=== PATIENT | male | born 1930 | race Caucasian/White ===

== ENCOUNTER 2016-10-25 18:52 | Emergency (ER) | payer MEDICARE ==
[2016-10-25] MEDS ORDERED: traMADol TAB* 50 MG PO ONE (20:51)
[2016-10-25] MEDS ORDERED: Tetan/Diph/Pertus SYR(Tdap)* 0.5 ML SYR(BOOSTRIX) use SYR IM ONE (20:53)
[2016-10-25 21:09] VITALS: BP 135/71
--- NOTE | 2016-10-25 21:22 | RAD ---
INDICATION: Fourth and fifth metacarpal injury COMPARISON: None TECHNIQUE: AP and lateral views were obtained. FINDINGS: There is osteopenia. There is interphalangeal and metacarpophalangeal joint space narrowing. There is no acute fracture. There is soft tissue swelling over the dorsum of the hand. IMPRESSION: SOFT TISSUE SWELLING. NO ACUTE FRACTURE.
--- NOTE | 2016-10-25 21:32 | RAD ---
INDICATION: Intracranial injury COMPARISON: MRI brain February 28, 2011 TECHNIQUE: Noncontrast axial source images were acquired from the skull base to the vertex. FINDINGS: Ventricles/sulci: There is cortical atrophy with compensatory dilatation of the CSF spaces. Brain parenchyma: There is periventricular and subcortical white matter change compatible with chronic ischemia. Intracranial hemorrhage:None. Extra-axial spaces: There are no abnormal extra axial fluid collections or evidence of extra-axial mass. Calvarium: There is no calvarial fracture or other calvarial abnormality. Scalp: There is no evidence of scalp or extracalvarial soft tissue abnormality. Paranasal sinuses/mastoid: The paranasal sinuses and mastoid air cells are clear. Other: None. IMPRESSION: CORTICAL ATROPHY WITH CHRONIC MICROVASCULAR ISCHEMIC CHANGES. NO ACUTE FINDINGS.
--- NOTE | 2016-10-25 21:38 | RAD ---
INDICATION: Fall. Right facial injury. COMPARISON: None TECHNIQUE: Axial source images were acquired from the vertex of the mandible through the orbits. Coronal and sagittal reconstructed images were acquired. FINDINGS: Bones: There is no acute facial bone fracture. Orbits: The globes and intraconal structures appear intact. The optic nerves are symmetric. Extraocular muscles appear normal. There is no intraconal inflammatory change or retrobulbar mass.. Paranasal sinuses: The paranasal sinuses are clear. Brain: There are no acute abnormalities of the visualized brain parenchyma. Soft tissues: There are superficial right-sided facial abrasions Other: None The visualized soft tissue elements about the neck appear normal. IMPRESSION: NO FACIAL BONE FRACTURE.
--- NOTE | 2016-11-08 15:42 | ED ---
Juani Rashid Kyle, scribed for Ariel Judd MD on 10/25/16 at 2055 . Complex/Multi-Sys Presentation - HPI Summary HPI Summary: This is an 86 yo male presenting to the ED s/p fall that occurred earlier today. He reports they were walking [place] the [place] trail and on the way down the hill, he kept speeding up, and ended up falling down when he attempted to turn around. He reports that when he fell, he did hit head and tried to catch himself with the right hand. He was unable to get up after the fall without assistance, but was able to walk without assistance. He is currently on Pradaxa. He is unsure if his tetanus is UTD. - History Of Current Complaint Chief Complaint: EDGeneral Time Seen by Provider: 10/25/16 20:43 Hx Obtained From: Patient, Family/Candle Cutter - Onset/Duration: Sudden Onset Timing: Constant Severity Currently: Moderate Severity Initially: Moderate Character: Sharp, Throbbing Aggravating Factor(s): Pressure to the injury Alleviating Factor(s): None Related History: Other - Recent trauma - Allergies/Home Medications Allergies/Adverse Reactions: Allergies Allergy/AdvReac Type Severity Reaction Status Date / Time Donepezil [From Aricept] Allergy Dizziness Verified 10/25/16 19:26 PMH/Surg Hx/FS Hx/Imm Hx Cardiovascular History: Reports: Hx Atrial Fibrillation Respiratory History: Reports: Hx Sleep Apnea - Cancer History Cancer Type, Location and Year: PROSTATE [place] Infectious Disease History: Denies: Traveled Outside the [place] in Last 30 Days - Family History Known Family History: Positive: Other - Colon surgery - Social History Occupation: Retired - Professional Musician/Teacher Lives: With Family Alcohol Use: None Substance Use Type: Reports: None Smoking Status (MU): Never Smoked Tobacco Review of Systems Negative: Fever, Chills Negative: Erythema Positive: Other - Head Injury. Negative: Sore Throat Negative: Palpitations, Chest Pain Negative: Shortness Of Breath, Cough Negative: Abdominal Pain, Vomiting, Nausea Negative: dysuria, hematuria Musculoskeletal: Other - Right hand pain Negative: Myalgia, Edema Negative: Rash Neurological: Other - NEGATIVE: dizziness Negative: Headache, Numbness All Other Systems Reviewed And Are Negative: Yes Physical Exam - Summary Physical Exam Summary: Constitutional: Well-developed, Well-nourished, Alert. (-) Distressed Skin: Warm, Dry HENT: Normocephalic; Right infraorbital abrasion, 2 cm x 2cm with other abrasions surrounding. There is some ecchymosis over the right eyelid. Tenderness to the right infraorbital region. Neck: Musculoskeletal ROM normal neck. (-) JVD, (-) Stridor, (-) Tracheal deviation Cardio: Rhythm regular, rate normal, Heart sounds normal; Intact distal pulses; The pedal pulses are 2+ and symmetric. Radial pulses are 2+ and symmetric. (-) Murmur Pulmonary/Chest wall: Effort normal. (-) Respiratory distress, (-) Wheezes, (-) Rales Abd: Soft, (-) Tenderness, (-) Distension, (-) Guarding, (-) Rebound Musculoskeletal: (-) Edema. Tender with ecchymosis over the 4th and 5th metacarpals on the right hand. Lymph: (-) Cervical adenopathy Neuro: Alert, Oriented x3 Psych: Mood and affect Normal Triage Information Reviewed: Yes Vital Signs On Initial Exam: Initial Vitals Temp Pulse Resp BP Pulse Ox 98.2 F 60 16 116/67 93 10/25/16 19:20 10/25/16 19:20 10/25/16 19:20 10/25/16 19:20 10/25/16 19:20 Vital Signs Reviewed: Yes Diagnostics - Vital Signs Vital Signs Temp Pulse Resp BP Pulse Ox 10/25/16 19:20 98.2 F 60 16 116/67 93 - Laboratory Lab Statement: Any lab studies that have been ordered have been reviewed, and results considered in the medical decision making process. - Radiology XR R Hand Xray Interpretation: Positive (See Comments) - Soft tissue swelling. No acute fracture. Radiology Interpretation Completed By: Radiologist - CT Brain CT Interpretation: No Acute Changes - Cortical Atrophy with chronic microvascular ischemic changes. No acute findings CT Interpretation Completed By: Radiologist Maxillofacial CT Interpretation: No Acute Changes CT Interpretation Completed By: Radiologist - No facial bone fracture Re-Evaluation - Re-Evaluation First Eval Re-Evaluation Time: 21:46 Change: Improved - Patient has FROM of his fingers on re-evaluation. Complex Multi-Symp Course/Dx Assessment/Plan: Patient presenting status post mechanical fall without prodrome. He has negative radiographic studies in the ED including CT Head, CT Facial bones and R hand XR. No neurologic symptoms. Hand with FROM on reexamination. Stable for discharge with outpatient follow. - Diagnoses Differential Diagnoses/HQI/PQRI: Other - Mechanical fall, abrasions, strains, contusion, facial bone fracture, finger fracture, Provider Diagnoses: Contusion of right hand, initial encounter, Fall, Facial hematoma, Multiple abrasions Discharge - Discharge Plan Condition: Stable Disposition: HOME Patient Education Materials: Abrasion (ED), Fall Prevention (ED), Contusion in Adults (ED) Referrals: Damon Mooney MD [Primary Care Provider] - The documentation as recorded by the Juani fuentes Kyle accurately reflects the service I personally performed and the decisions made by , Ariel Judd MD.
== END 2016-10-25 22:13 | disposition home or self-care (01) ==
LOC: ED 18:52
DX: S09.90XA Unspecified injury of head, initial encounter (principal); T14.8 Other injury of unspecified body region; W19.XXXA Unspecified fall, initial encounter; Y93.9 Activity, unspecified; Y92.9 Unspecified place or not applicable; S60.221A Contusion of right hand, initial encounter
CPT/HCPCS: 70450; 70486; 90471; 90715; 99282; A9270-GY

== ENCOUNTER 2018-01-15 12:45 | Day surgery (SDC) | payer MEDICARE ==
[2018-01-15] MEDS ORDERED: Bupivacaine 0.25% SDV PF* 10 ML VIAL INJ ONE (13:58)
[2018-01-15 15:27] VITALS: BP 123/76
--- NOTE | 2018-01-16 03:06 | OP ---
DATE OF OPERATION: 01/15/18 [facility] DATE OF : 30. SURGEON: Russell Olmedo M.D. CLOUD CONSULTANT: None. ANESTHESIOLOGIST: None. ANESTHESIA: Local only with digital block via 0.25% Marcaine. PRE-OP DIAGNOSIS: Right thumbnail onychomycosis. POST-OP DIAGNOSIS: Right thumbnail onychomycosis. OPERATIVE PROCEDURE: Right thumbnail plate removal. INDICATIONS: Nasim has significant onychomycosis and significant discomfort. The nail plate is red, green, and cracking, and portions of the nail plate are falling off. We had talked about treatment options. We decided to remove the nail plate in the operating room. He understood and wished to proceed. ESTIMATED BLOOD LOSS: 1 mL. COMPLICATIONS: None. FINDINGS: See above and below. DESCRIPTION OF PROCEDURE: Nasim was seen in the preoperative area. The correct site, side and procedure were identified. We had a time-out and I performed a digital block with 0.25% Marcaine. We then came back to the operating room. The arm was prepped and draped with a Betadine prep and then a time-out was performed. I used a curved iris scissors to remove the nail plate in its entirety. This was sent off to the lab for evaluation. I took a small curette and curetted it off any friable soft tissue off the nail bed. Everything that remained was as healthy as possible. I soaked the thumb in Betadine for just a few minutes. We then cleaned everything off. I placed a piece of Adaptic just on top of the nail bed. The finger tourniquet that had been placed was released. Dressings were applied, he was taken to the recovery room in stable condition. [id number]/[facility] #: [id number] [facility]
== END 2018-01-15 15:49 | disposition home or self-care (01) ==
LOC: OREAST 12:45
PROVIDERS: ATTEND Orthopaedic Surgery Hand Surgery
DX: B35.1 Tinea unguium (principal); B37.2 Candidiasis of skin and nail; L60.3 Nail dystrophy; I48.91 Unspecified atrial fibrillation; Z79.01 Long term (current) use of anticoagulants; M10.9 Gout, unspecified; I34.0 Nonrheumatic mitral (valve) insufficiency
CPT/HCPCS: 87101; 88304; 88312; J3490

== ENCOUNTER 2019-03-29 13:05 | Emergency (ER) | payer MEDICARE ==
--- OUTSIDE RECORDS SUMMARY | 2019-03-29 13:18 | XMS REPORT | Continuity of Care Document ---
:1930 External Reference #:[id number] Author Name Emile Lemos M.D. (transmitted by agent of provider Chloe Garcia ) Address [address] [facility], [place] [address] Care Team Providers Name Role Phone Roosevelt Acevedo MD - Urology Care Team Information Pediatric Associate [phone] Kris Villagran MD - Care Team Information Pediatric Associate [phone] Otolaryngology Mana Carcamo M.D. - Family Medicine Care Team Information Pediatric Associate Problems Active Problems Provider Date Malignant tumor of prostate Damon Mooney M.D.,FACP Onset: 04/22/2011 Paroxysmal atrial fibrillation Damon Mooney M.D.,FACP Onset: 06/13/2016 Mitral valve regurgitation Damon Mooney M.D.,FACP Onset: 12/01/2015 Note: severe Mild cognitive disorder Damon Mooney M.D.,FACP Onset: 08/16/2013 Impaired fasting glycaemia Damon Mooney M.D.,FACP Onset: 03/23/2007 Benign prostatic hypertrophy with Damon Mooney M.D.,FACP Onset: 2007 outflow obstruction [place] Mooney M.D.,FACP Onset: 11/01/2010 Obstructive sleep apnea syndrome Damon Mooney M.D.,FACP Onset: 2010 Mild major depression, single episode Damon Mooney M.D.,FACP Onset: Gout Damon Mooney M.D.,FACP Onset: 02/23/2015 Dystrophia unguium Russell Olmedo MD Onset: 01/06/2018 Social History Type Date Description Comments Sex Unknown Tobacco Use Start: Unknown Never Smoked Cigarettes ETOH Use 06/19/2017 Denies alcohol use Recreational Drug Use Denies Drug Use Tobacco Use Start: Unknown Patient has never smoked Smoking Status Reviewed: 02/22/19 Patient has never smoked Exercise Type/Frequency Walks 5 times a week third to half mile/strength exercises before getting oob Allergies, Adverse Reactions, Alerts Active Allergies Reaction Severity Comments Date Aricept dizzy Moderate dizzy 10/17/2009 Inactive Allergies NKDA 03/23/2007 Medications Active Medications SIG Qnty Indications Ordering Provider Date Carbidopa-Levodopa 1 by mouth every 90tabs R29.6 Emile Lemos, 2019 am after meals M.D. 25-100mg Tablets for 1 week then 1 twice a day after meals for 1 week then 1 three times a day after meals Eliquis 1 tablet by 180tabs I48.0 Davion Mosqueda, 11/20/2017 2.5mg Tablets mouth twice a DO FACC day. Allopurinol Take 2 Tablets 180tabs M10.9 Coretta Hinson MD 02/23/2015 100mg By Mouth Every Tablets Day Sertraline HCL [id number] by 90tabs Mana Carcamo MD 04/30/2012 50mg mouth Tablets Acidophilus 1 po qd Unknown Tablets Finasteride 1 po qd 30tabs Unknown 5mg Tablets Vitamin D 1 by mouth every Unknown 1000Unit day Capsules Bicalutamide 1 by mouth every Unknown 50mg day Tablets Immunizations CPT Code Status Date Vaccine Lot # 84337 Given 11/20/2018 Influenza Virus Vaccine, Quadrivalent, Split, Im Use 6-35mo 88674 Given 11/25/2017 Fluzone High Dose 60643 Given 11/14/2017 Zoster (Shingles) Vaccine (HZV), Recombinant, Subunit, Adjuvanted 47242 Given 06/19/2017 Zoster (Shingles) Vaccine (HZV), Recombinant, Subunit, Adjuvanted 67134 Given 11/28/2016 Influenza Virus 3Yrs & Over 59574 Given 11/20/2015 Influ Virus Vaccine, Quadrivalent, Split Virus, [place] [address] Given 02/23/2015 Tetanus And Diptheria (Td) For Adult Use [id number] Preservative Free 82746 Given 02/23/2015 Pneumococcal Conjugate Vaccine 13 Valent For [id number] Intramuscular Use 15117 Given 12/01/2014 Fluzone High Dose 98390 Given 01/08/2013 Flu Vaccine Split Virus Preservative Free For Indiv 3Yr Older 80200 Given 12/21/2012 Fluzone High Dose 40082 Given 11/20/2011 Influenza Virus 3Yrs & Over [id number] Given 11/01/2010 Fluzone Vaccine [id number] 81519 Given 11/19/2009 Influenza Virus 3Yrs & Over 33148 Given 12/05/2008 Influenza Virus 3Yrs & Over [id number] 58967 Given 12/10/2007 Influenza Virus 3Yrs & Over [id number] 18203 Given 12/19/2006 Influenza Virus 3Yrs & Over 28222 Given 12/19/2006 Influenza Virus 3Yrs & Over 35933 Given 12/19/2006 Influenza Virus 3Yrs & Over [id number] 55805 Given 12/17/2005 Pneumonia Vaccine [id number] Vital Signs Date Vital Result Comment 02/22/2019 2:00pm Height 68.50 inches 5'8.50" Weight 204.00 lb Heart Rate 72 /min BP Systolic Sitting 106 mmHg BP Diastolic Sitting 60 mmHg Respiratory Rate 18 /min BMI (Body Mass Index) 30.6 kg/m2 02/08/2019 9:29am Height 68.50 inches 5'8.50" Weight 207.00 lb Heart Rate 56 /min BP Systolic 108 mmHg BP Diastolic 66 mmHg BMI (Body Mass Index) 31.0 kg/m2 Results Test Acquired Date Facility Test Result H/L Range Note CBC Auto 02/19/2019 [facility] White Blood 5.4 10^3/uL Normal 3.5-10.[address] [place] [address] [phone] Red Blood Count 3.94 10^6/uL Low 4.18-5.48 Hemoglobin 11.0 g/dL Low 14.0-18.0 Hematocrit 34 % Low 42-52 Mean Corpuscular Volume 85 fL Normal 80-94 Mean Corpuscular Hemoglobin 28 pg Normal 27-31 Mean Corpuscular HGB Conc 33 g/dL Normal 31-36 Red Cell Distribution Width 14 % Normal 10-15 Platelet Count 203 10^3/uL Normal 150-450 Mean Platelet Volume 7.9 fL Normal 7.4-10.4 Abs Neutrophils 4.2 10^3/uL Normal 1.5-7.7 Abs Lymphocytes 0.6 10^3/uL Low 1.0-4.8 Abs Monocytes 0.5 10^3/uL Normal 0-0.8 Abs Eosinophils 0.2 10^3/uL Normal 0-0.6 Abs Basophils 0.0 10^3/uL Normal 0-0.2 Abs Nucleated RBC 0.0 10^3/uL Granulocyte % 77.0 % Lymphocyte % 10.5 % Monocyte % 8.5 % Eosinophil % 3.6 % Basophil % 0.4 % Nucleated Red Blood Cells % 0.0 Comp Metabolic 02/19/2019 [facility] Sodium 139 mmol/L Normal 135-[address] [place], [place] [id number] [phone] Potassium 4.2 mmol/L Normal 3.5-5.0 Chloride 104 mmol/L Normal 101-111 Co2 Carbon Dioxide 29 mmol/L Normal 22-32 Anion Gap 6 mmol/L Normal 2-11 Glucose 95 mg/dL Normal 70-100 Blood Urea Nitrogen 28 mg/dL High 6-24 Creatinine 0.88 mg/dL Normal 0.67-1.17 BUN/Creatinine Ratio 31.8 High 8-20 Calcium 8.8 mg/dL Normal 8.6-10.3 Total Protein 6.2 g/dL Low 6.4-8.9 Albumin 3.7 g/dL Normal 3.2-5.2 Globulin 2.5 g/dL Normal 2-4 Albumin/Globulin Ratio 1.5 Normal 1-3 Total Bilirubin 0.30 mg/dL Normal 0.2-1.0 Alkaline Phosphatase 182 U/L High 34-104 Alt 17 U/L Normal 7-52 Ast 20 U/L Normal 13-39 Egfr Non- 81.5 >60 Egfr 98.7 >60 1 Laboratory test 02/19/2019 [facility] Magnesium 2.2 mg/dL Normal 1.9-2.[address] [place] [address] [phone] Troponin-I (TnI) 0.02 ng/mL <0.03 2 Urinalysis Profile 02/05/2019 [facility] Urine Color Yellow [address] [place] [address] [phone] Urine Appearance Clear Urine Specific [place] 1.014 Normal 1.010-1.030 Urine pH 5.0 Normal 5-9 Urine Urobilinogen Negative Negative Urine Ketones Negative Negative Urine Protein Negative Negative Urine Leukocytes Negative Negative Urine Blood 1+ Abnormal Negative * * Abnormal Negative 3 Urine Nitrite Negative Negative Urine Bilirubin Negative Negative Urine Glucose Negative Negative Urine White Blood Cell Trace(0-5/hpf) Absent Urine Red Blood Cell 3+(>10/hpf) Abnormal Absent Urine Bacteria Absent Absent Urine Microalbumin 02/05/2019 [facility] Ur Microalbumin 48.9 mg /L Random [address] (mg/L) [place] [address] [phone] Urine Creatinine 56.64 mg/dL Urine Microalbumin/Creatinine 86.3 High <31 Urine Culture And 02/05/2019 [facility] Urine SEE RESULT [address] [place] [place] [address] [phone] Comp Metabolic 01/29/2019 [facility] Sodium 136 mmol/L Normal 135-[address] [place] [address] [phone] Potassium 4.6 mmol/L Normal 3.5-5.0 Chloride 100 mmol/L Low 101-111 Co2 Carbon Dioxide 32 mmol/L Normal 22-32 Anion Gap 4 mmol/L Normal 2-11 Glucose 94 mg/dL Normal 70-100 Blood Urea Nitrogen 25 mg/dL High 6-24 Creatinine 0.92 mg/dL Normal 0.67-1.17 BUN/Creatinine Ratio 27.2 High 8-20 Calcium 9.0 mg/dL Normal 8.6-10.3 Total Protein 6.2 g/dL Low 6.4-8.9 Albumin 3.8 g/dL Normal 3.2-5.2 Globulin 2.4 g/dL Normal 2-4 Albumin/Globulin Ratio 1.6 Normal 1-3 Total Bilirubin 0.50 mg/dL Normal 0.2-1.0 Alkaline Phosphatase 113 U/L High 34-104 Alt 23 U/L Normal 7-52 Ast 24 U/L Normal 13-39 Egfr Non- 77.5 >60 Egfr 93.7 >60 5 Laboratory 01/29/2019 [facility] TSH (Thyroid 2.03 Normal 0.34 -5.60 test finding [address] Stim Horm) mcIU/[place] [address] [phone] Vitamin B12 344 pg/mL Normal 180-914 6 Laboratory test 01/05/2019 [facility] PSA Diagnostic 48.351 High 0-4.000 [address] ng/[place] [address] [phone] Comp Metabolic 01/05/2019 [facility] Sodium 138 mmol/L Normal 135-[address] [place] [address] [phone] Potassium 4.4 mmol/L Normal 3.5-5.0 Chloride 100 mmol/L Low 101-111 Co2 Carbon Dioxide 31 mmol/L Normal 22-32 Anion Gap 7 mmol/L Normal 2-11 Glucose 98 mg/dL Normal 70-100 Blood Urea Nitrogen 26 mg/dL High 6-24 Creatinine 0.90 mg/dL Normal 0.67-1.17 BUN/Creatinine Ratio 28.9 High 8-20 Calcium 9.3 mg/dL Normal 8.6-10.3 Total Protein 6.9 g/dL Normal 6.4-8.9 Albumin 3.9 g/dL Normal 3.2-5.2 Globulin 3.0 g/dL Normal 2-4 Albumin/Globulin Ratio 1.3 Normal 1-3 Total Bilirubin 0.30 mg/dL Normal 0.2-1.0 Alkaline Phosphatase 99 U/L Normal 34-104 Alt 20 U/L Normal 7-52 Ast 22 U/L Normal 13-39 Egfr Non- 79.6 >60 Egfr 96.4 >60 8 CBC Auto 01/05/2019 [facility] White Blood 7.0 10^3/uL Normal 3.5-10.[address] [place] [address] [phone] Red Blood Count 4.35 10^6/uL Normal 4.18-5.48 Hemoglobin 12.7 g/dL Low 14.0-18.0 Hematocrit 38 % Low 42-52 Mean Corpuscular Volume 88 fL Normal 80-94 Mean Corpuscular Hemoglobin 29 pg Normal 27-31 Mean Corpuscular HGB Conc 33 g/dL Normal 31-36 Red Cell Distribution Width 14 % Normal 10-15 Platelet Count 246 10^3/uL Normal 150-450 Mean Platelet Volume 8.0 fL Normal 7.4-10.4 Abs Neutrophils 5.4 10^3/uL Normal 1.5-7.7 Abs Lymphocytes 0.7 10^3/uL Low 1.0-4.8 Abs Monocytes 0.5 10^3/uL Normal 0-0.8 Abs Eosinophils 0.3 10^3/uL Normal 0-0.6 Abs Basophils 0.0 10^3/uL Normal 0-0.2 Abs Nucleated RBC 0.0 10^3/uL Granulocyte % 77.4 % Lymphocyte % 10.5 % Monocyte % 7.0 % Eosinophil % 4.7 % Basophil % 0.4 % Nucleated Red Blood Cells % 0.0 Basic Metabolic 12/04/2018 [facility] Sodium 138 mmol/L Normal 135-[address] [place] [address] [phone] Potassium 4.4 mmol/L Normal 3.5-5.0 Chloride 100 mmol/L Low 101-111 Co2 Carbon Dioxide 32 mmol/L Normal 22-32 Anion Gap 6 mmol/L Normal 2-11 Glucose 81 mg/dL Normal 70-100 Blood Urea Nitrogen 24 mg/dL Normal 6-24 Creatinine 0.92 mg/dL Normal 0.67-1.17 BUN/Creatinine Ratio 26.1 High 8-20 Calcium 9.2 mg/dL Normal 8.6-10.3 Egfr Non- 77.6 >60 Egfr 93.9 >60 9 CBC Auto 12/04/2018 [facility] White Blood 6.4 10^3/uL Normal 3.5-10.[address] [place] [address] [phone] Red Blood Count 4.11 10^6/uL Low 4.18-5.48 Hemoglobin 12.1 g/dL Low 14.0-18.0 Hematocrit 36 % Low 42-52 Mean Corpuscular Volume 88 fL Normal 80-94 Mean Corpuscular Hemoglobin 30 pg Normal 27-31 Mean Corpuscular HGB Conc 34 g/dL Normal 31-36 Red Cell Distribution Width 14 % Normal 10-15 Platelet Count 199 10^3/uL Normal 150-450 Mean Platelet Volume 8.6 fL Normal 7.4-10.4 Abs Neutrophils 4.9 10^3/uL Normal 1.5-7.7 Abs Lymphocytes 0.7 10^3/uL Low 1.0-4.8 Abs Monocytes 0.5 10^3/uL Normal 0-0.8 Abs Eosinophils 0.2 10^3/uL Normal 0-0.6 Abs Basophils 0.0 10^3/uL Normal 0-0.2 Abs Nucleated RBC 0.0 10^3/uL Granulocyte % 76.6 % Lymphocyte % 11.5 % Monocyte % 7.9 % Eosinophil % 3.6 % Basophil % 0.4 % Nucleated Red Blood Cells % 0.0 Laboratory 12/01/2018 [facility] PSA Diagnostic 42.656 High 0- 4.0 10, 11 test finding [address] [facility] ng/[place] [address] [phone] Testosterone Total < 10.00 ng/dL Low 240-950 12 Lipid Profile 08/28/2018 [facility] Triglycerides 129 mg/dL 13 (Trig/Chol/HDL) [address] [place] [address] [phone] Cholesterol 145 mg/dL 14 HDL Cholesterol 33.3 mg/dL 15 LDL Cholesterol 86 mg/dL 16 Basic Metabolic 08/28/2018 [facility] Sodium 143 mmol/L Normal 135-145 Panel [address] [place] [address] [phone] Potassium 4.5 mmol/L Normal 3.5-5.0 Chloride 106 mmol/L Normal 101-111 Co2 Carbon Dioxide 33 mmol/L High 22-32 Anion Gap 4 mmol/L Normal 2-11 Glucose 96 mg/dL Normal 70-100 Blood Urea Nitrogen 23 mg/dL Normal 6-24 Creatinine 1.10 mg/dL Normal 0.67-1.17 BUN/Creatinine Ratio 20.9 High 8-20 Calcium 9.7 mg/dL Normal 8.6-10.3 Egfr Non- 63.2 >60 Egfr 76.4 >60 17 Laboratory 08/28/2018 [facility] TSH (Thyroid 1.70 Normal 0.34 -5.[address] Stim Horm) mcIU/[place] [address] [phone] 1 Because ethnic data is not always readily available, this report includes an eGFR for both -Americans and non- Americans. The National Kidney Disease Education Program (NKDEP) does not endorse the use of the MDRD equation for patients that are not between the ages of 18 and 70, are , have extremes of body size, muscle mass, or nutritional status, or are non- or non-. According to the National Kidney Foundation, irrespective of diagnosis, the stage of the disease is based on the level of kidney function: Stage Description GFR(mL/min/1.73 m(2)) 1 Kidney damage with normal or decreased GFR 90 2 Kidney damage with mild decrease in GFR 60-89 3 Moderate decrease in GFR 30-59 4 Severe decrease in GFR 15-29 5 Kidney failure <15 (or dialysis) 2 Troponin-I testing on Plasma Separator Tubes (PST) has a known false positive rate of 0.20-0.40%. All positive troponins reflex immediately to secondary confirmatory testing. Using the [employer] DxI 800 Access Immunoassay systems, the 99th percentile upper reference limit was demonstrated to be < 0.03 ng/mL. 3 *Ascorbic acid is present which may interfere with detection of blood. 4 SEE RESULT BELOW Name: AGUEROERICA Nickerson : [address]: Daysi Bocanegra MD Acct: [id number] Unit: [id number] AGE: 89 Location: [facility] Re02/05/19 SEX: M Status: REG REF SPEC: [id number] KANE: 02/05/19-[address]: Daysi Bocanegra MD REQ: [id number] RECD: 02/05/19 STATUS: COMP _ SOURCE: URINE SPDESC: ORDERED: Urine Culture Procedure Result Reported Site Urine Culture Final 02/07/19- 0849 ML No Growth (<1,000 CFU/mL) * ML - Main Lab . END OF REPORT DEPARTMENT OF PATHOLOGY, [address] [place] [address] Gerardo Snell M.D. Director [facility] # [id number] 5 Because ethnic data is not always readily available, this report includes an eGFR for both -Americans and non- Americans. The National Kidney Disease Education Program (NKDEP) does not endorse the use of the MDRD equation for patients that are not between the ages of 18 and 70, are , have extremes of body size, muscle mass, or nutritional status, or are non- or non-. According to the National Kidney Foundation, irrespective of diagnosis, the stage of the disease is based on the level of kidney function: Stage Description GFR(mL/min/1.73 m(2)) 1 Kidney damage with normal or decreased GFR 90 2 Kidney damage with mild decrease in GFR 60-89 3 Moderate decrease in GFR 30-59 4 Severe decrease in GFR 15-29 5 Kidney failure <15 (or dialysis) 6 Normal Range 180 to 914 Indeterminate Range 145 to 180 Deficient Range <145 7 Serum levels of PSA measured using the [employer] DXI Hybritech immunoassay should not be interpreted as absolute evidence of the presence or absence of disease. The PSA value should be used in conjunction with other pertinent clinical diagnostic procedures. The values obtained with different assay methods or kits cannot be used interchangeably. 8 Because ethnic data is not always readily available, this report includes an eGFR for both -Americans and non- Americans. The National Kidney Disease Education Program (NKDEP) does not endorse the use of the MDRD equation for patients that are not between the ages of 18 and 70, are , have extremes of body size, muscle mass, or nutritional status, or are non- or non-. According to the National Kidney Foundation, irrespective of diagnosis, the stage of the disease is based on the level of kidney function: Stage Description GFR(mL/min/1.73 m(2)) 1 Kidney damage with normal or decreased GFR 90 2 Kidney damage with mild decrease in GFR 60-89 3 Moderate decrease in GFR 30-59 4 Severe decrease in GFR 15-29 5 Kidney failure <15 (or dialysis) 9 Because ethnic data is not always readily available, this report includes an eGFR for both -Americans and non- Americans. The National Kidney Disease Education Program (NKDEP) does not endorse the use of the MDRD equation for patients that are not between the ages of 18 and 70, are , have extremes of body size, muscle mass, or nutritional status, or are non- or non-. According to the National Kidney Foundation, irrespective of diagnosis, the stage of the disease is based on the level of kidney function: Stage Description GFR(mL/min/1.73 m(2)) 1 Kidney damage with normal or decreased GFR 90 2 Kidney damage with mild decrease in GFR 60-89 3 Moderate decrease in GFR 30-59 4 Severe decrease in GFR 15-29 5 Kidney failure <15 (or dialysis) 10 [id number] 11 Serum levels of PSA measured using the [employer]aro DXI Hybritech immunoassay should not be interpreted as absolute evidence of the presence or absence of disease. The PSA value should be used in conjunction with other pertinent clinical diagnostic procedures. The values obtained with different assay methods or kits cannot be used interchangeably. 12 [id number] Desirable: <150 Borderline High: 150-199 High: 200-499 Very High: >500 14 Desirable: <200 Borderline High: 200-239 High: >239 15 Low: <40 Desirable: 40-60 High: >60 16 Desirable: <100 Near Optimal: 100-129 Borderline High: 130-159 High: 160-189 Very High: >189 17 Because ethnic data is not always readily available, this report includes an eGFR for both -Americans and non- Americans. The National Kidney Disease Education Program (NKDEP) does not endorse the use of the MDRD equation for patients that are not between the ages of 18 and 70, are , have extremes of body size, muscle mass, or nutritional status, or are non- or non-. According to the National Kidney Foundation, irrespective of diagnosis, the stage of the disease is based on the level of kidney function: Stage Description GFR(mL/min/1.73 m(2)) 1 Kidney damage with normal or decreased GFR 90 2 Kidney damage with mild decrease in GFR 60-89 3 Moderate decrease in GFR 30-59 4 Severe decrease in GFR 15-29 5 Kidney failure <15 (or dialysis) Procedures Date Code Description Status 01/01/2019 18089 ECHO Transthoracic, Real-Time 2D With Doppler And Completed Color Flow 01/01/2019 55149 ECHO Transthoracic, Real-Time 2D With Doppler And Completed Color Flow 12/07/2018 02063 EKG Tracing & Interpretation Completed 08/20/2008 [id number] Colonoscopy Completed 03/27/2007 [id number] Bone Mineral Density Test Completed 03/26/2007 139126221 Bone Mineral Density Test Completed Medical Devices Description No Information Available Encounters Type Date Location Provider Dx Diagnosis Office Visit 02/08/2019 [facility] Emile Reynoso R29.6 Repeated falls 9:00a Torres Lemos R53.1 Weakness Office Visit 01/29/2019 [facility] Emile Reynoso F33.0 Major 9:45a Clinic [facility] Lemos depressive disorder, recurrent, mild G31.84 Mild cognitive impairment, so stated R29.6 Repeated falls Office Visit 12/07/2018 1:40p [facility] Davion Reynoso I34.0 Nonrheumatic mitral Of [place] Maker DO Panda (valve) [facility] insufficiency I48.0 Paroxysmal atrial fibrillation Office Visit 11/13/2018 [facility] Emile Reynoso F33.0 Major 8:45a Beka Lemos M.D. depressive disorder, recurrent, mild G31.84 Mild cognitive impairment, so stated C61 Malignant neoplasm of prostate Assessments Date Code Description Provider 02/22/2019 G31.84 Mild cognitive impairment, so stated Emile Lemos M.D. 02/22/2019 R60.9 Edema, unspecified Emile Lemos M.D. 02/22/2019 R53.1 Weakness Emile Lemos M.D. 02/22/2019 R29.6 Repeated falls Emile Lemos M.D. 02/08/2019 R29.6 Repeated falls Emile Lemos M.D. 02/08/2019 R53.1 Weakness Emile Lemos M.D. 02/05/2019 R60.9 Edema, unspecified Daysi Bocanegra MD 02/05/2019 G31.84 Mild cognitive impairment, so stated Daysi Bocanegra MD 01/29/2019 F33.0 Major depressive disorder, recurrent, mild Emile Lemos M.D. 01/29/2019 G31.84 Mild cognitive impairment, so stated Emile Lemos M.D. 01/29/2019 R29.6 Repeated falls Emile Lemos M.D. 01/01/2019 I34.0 Nonrheumatic mitral (valve) insufficiency Davion Mosqueda DO [facility] 01/01/2019 I34.0 Nonrheumatic mitral (valve) insufficiency [place] [facility] Schedule 12/07/2018 I34.0 Nonrheumatic mitral (valve) insufficiency Davion Mosqueda DO FAC 12/07/2018 I48.0 Paroxysmal atrial fibrillation Davion Mosqueda DO [facility] 11/13/2018 F33.0 Major depressive disorder, recurrent, mild Emile Lemos M.D. 11/13/2018 G31.84 Mild cognitive impairment, so stated Emile Lemos M.D. 11/13/2018 C61 Malignant neoplasm of prostate Emile Lemos M.D. 08/31/2018 Z00.01 Encounter for general adult medical Mana Carcamo MD examination with abnorma 08/31/2018 F33.0 Major depressive disorder, recurrent, mild Mana Carcamo MD 08/31/2018 I48.0 Paroxysmal atrial fibrillation Mana Carcamo MD 08/31/2018 G31.84 Mild cognitive impairment, so stated Mana Carcamo MD 08/31/2018 H91.93 Unspecified hearing loss, bilateral Mana Carcamo MD Plan of Treatment Future Appointment(s):06/01/2019 2:30 pm - Emile Lemos M.D. at [facility]11/19/2019 10:45 am - Emile Lemos M.D. at [id number]/03/2019 10:00 am - Mana Carcamo MD at [facility] - [facility]02/22/2019 - Emile Lemos M.D.G31.84 Mild cognitive impairment, so fmbtsqQ41.9 Edema, maqbxwmnewmO73.1 AqxuyfmkJ77.6 Repeated fallsNew Medication:Carbidopa-Levodopa 25-100 mg - 1 by mouth every am after meals for 1 week then 1 twice a day after meals for 1 week then 1 three times a day after mealsFollow up:3 months Functional Status Description No Information Available Mental Status Description No Information Available Referrals Description No Information Available
--- NOTE | 2019-03-29 16:34 | ED ---
Head Injury - HPI Summary HPI Summary: 89-year-old male presents with head injury today. Fall was mechanical fall. He was rushing to the bathroom and ended up slipping and falling and hitting his head. Has abrasion to his bhatti and his forehead. He denies any neck pain. No other injury. No chest pain or shortness breath. No dizziness. No change in vision. Denies any vomiting or nausea. states has been acting normal. states that has not been taking his diuretic and has noticed increased swelling to bilateral legs but he has started taking it again. Ambulates sometimes with a walker. - History Of Current Complaint Chief Complaint: EDHeadInjury Stated Complaint: FALL- HEAD INJURY PER PT Time Seen by Provider: 03/29/19 15:34 Pain Intensity: 0 Pain Scale Used: 0-10 Numeric - Allergies/Home Medications Allergies/Adverse Reactions: Allergies Allergy/AdvReac Type Severity Reaction Status Date / Time donepezil [From Aricept] AdvReac Mild Dizziness Verified 03/29/19 13:12 PMH/Surg Hx/FS Hx/Imm Hx Endocrine/Hematology History: Reports: Hx Anticoagulant Therapy Denies: Hx Diabetes Cardiovascular History: Reports: Hx Atrial Fibrillation Denies: Hx Pacemaker/ICD Respiratory History: Reports: Hx Sleep Apnea History: Denies: Hx Renal Disease Sensory History: Denies: Hx Hearing Aid Psychiatric History: Denies: Hx Panic Disorder - Cancer History Cancer Type, Location and Year: PROSTATE CA - Surgical History Surgery Procedure, Year, and Place: APPENDECTOMY. TONSILS Infectious Disease History: No Infectious Disease History: Denies: Traveled Outside the [place] in Last 30 Days - Family History Known Family History: Positive: Other - Colon surgery - Social History Alcohol Use: None Alcohol Amount: 1 drink a year Hx Substance Use: No Substance Use Type: Reports: None Hx Tobacco Use: No Smoking Status (MU): Never Smoked Tobacco Review of Systems Negative: Fever Negative: Chest Pain Negative: Shortness Of Breath Positive: Other - abrasion Positive: Headache All Other Systems Reviewed And Are Negative: Yes Physical Exam Triage Information Reviewed: Yes Vital Signs On Initial Exam: Initial Vitals Temp Pulse Resp BP Pulse Ox 98.0 F 63 19 124/63 95 03/29/19 13:05 03/29/19 13:05 03/29/19 13:05 03/29/19 13:05 03/29/19 13:05 Vital Signs Reviewed: Yes Appearance: Positive: Well-Appearing Skin: Positive: Warm, Dry, Other - abrasion present to right side of forehead and right bhatti Head/Face: Positive: Normal Head/Face Inspection, Other - no step off, racoon eyes, avila sign Eyes: Positive: Normal, EOMI, XOCHITL, Conjunctiva Clear ENT: Positive: Pharynx normal, TMs normal Neck: Positive: Other: - nontender neck, full ROM neck Respiratory/Lung Sounds: Positive: Clear to Auscultation, Breath Sounds Present Cardiovascular: Positive: Normal, RRR Musculoskeletal: Positive: Normal Neurological: Positive: Sensory/Motor Intact, Alert, Oriented to Person Place, Time, CN Intact II-III Psychiatric: Positive: Normal - [place] Coma Scale Best Eye Response: 4 - Spontaneous Best Motor Response: 6 - Obeys Commands Best Verbal Response: 5 - Oriented Coma Scale Total: 15 Procedures - Sedation Patient Received Moderate/Deep Sedation with Procedure: No - Laceration/Wound Repair 1 Location: head Description: Irregular Length, Depth and Shape: 3cm by 2cm superficial abrasion to forehead Irrigated w/ Saline (ccs): 100 Closure: Skin Adhesive Diagnostics - Vital Signs Vital Signs Temp Pulse Resp BP Pulse Ox 03/29/19 16:28 97.2 F 46 19 130/65 99 03/29/19 15:09 97.2 F 46 19 130/65 99 03/29/19 13:05 98.0 F 63 19 124/63 95 - Laboratory Lab Statement: Any lab studies that have been ordered have been reviewed, and results considered in the medical decision making process. - Radiology brain Radiology Interpretation Completed By: Radiologist Summary of Radiographic Findings: IMPRESSION: 1. NO ACUTE INTRACRANIAL PATHOLOGY. 2. DIFFUSE INVOLUTIONAL CHANGE. Head Injury Course/Dx Course Of Treatment: 89-year-old male presents with head injury today. Fall was mechanical fall. He was rushing to the bathroom and ended up slipping and falling and hitting his head. Has abrasion to his bhatti and his forehead. He denies any neck pain. No other injury. No chest pain or shortness breath. No dizziness. No change in vision. Denies any vomiting or nausea. states has been acting normal. states that has not been taking his diuretic and has noticed increased swelling to bilateral legs but he has started taking it again. Ambulates sometimes with a walker. On exam has a normal neuro exam. Has abrasion noted to the forehead and bhatti. cleaned areas and place glue on the patient forehead. CT of the brain is normal. Gave head injury precautions. Patient understands and agrees plan. - Diagnoses Differential Diagnosis/HQI/PQRI: Concussion Without LOC, Contusion, Intracranial Bleed, Laceration Provider Diagnoses: Head injury, Abrasion of scalp Discharge ED - Sign-Out/Discharge Documenting (check all that apply): Patient Departure - Discharge Plan Condition: Good Disposition: HOME Patient Education Materials: Head Injury (ED) Referrals: Mana Carcamo MD [Primary Care Provider] - Additional Instructions: Place ice on area as needed Take Tylenol for headache every 6 hours glue applied to abrasion on forehead which will fall off whenever ready Follow up with primary within 5 days Return to ED if develop vomiting, severe headache, change in behavior, or any new or worsening symptoms - Billing Disposition and Condition Condition: GOOD Disposition: Home
[2019-03-29 17:14] VITALS: BP 148/78
== END 2019-03-29 17:10 | disposition home or self-care (01) ==
LOC: ED 13:05
DX: S09.90XA Unspecified injury of head, initial encounter (principal); S00.01XA Abrasion of scalp, initial encounter; S80.811A Abrasion, right lower leg, initial encounter; W01.0XXA Fall on same level from slipping, tripping and stumbling without subsequent striking against object, initial encounter; Y93.89 Activity, other specified; Y92.009 Unspecified place in unspecified non-institutional (private) residence as the place of occurrence of the external cause; I48.91 Unspecified atrial fibrillation; Z79.01 Long term (current) use of anticoagulants; Z88.8 Allergy status to other drugs, medicaments and biological substances
CPT/HCPCS: 70450; 99283

== ENCOUNTER 2019-04-18 23:41 | Emergency (ER) | payer MEDICARE ==
--- OUTSIDE RECORDS SUMMARY | 2019-04-19 01:10 | XMS REPORT | Continuity of Care Document ---
:1930 External Reference #:[id number] Author Name Thelma Kauffman M.D. (transmitted by agent of provider Danielle Daigle) Address [address], [place] [address] Care Team Providers Name Role Phone Roosevelt Acevedo MD - Urology Care Team Information Supervisor Word Processing [phone] Kris Villagran MD - Care Team Information Supervisor Word Processing [phone] Otolaryngology Mana Carcamo M.D. - Family Medicine Care Team Information Supervisor Word Processing Ed Calixto MD - Hematology Care Team Information Supervisor Word Processing Problems Active Problems Provider Date Malignant tumor of prostate Damon Mooney M.D.,FACP Onset: 04/22/2011 Paroxysmal atrial fibrillation Damon Mooney M.D.,FACP Onset: 06/13/2016 Mitral valve regurgitation Damon Mooney M.D.,FACP Onset: 12/01/2015 Note: severe Mild cognitive disorder Damon Mooney M.D.,FACP Onset: 08/16/2013 Impaired fasting glycaemia Damon Mooney M.D.,FACP Onset: 03/23/2007 Benign prostatic hypertrophy with Damon Mooney M.D.,FACP Onset: 2007 outflow obstruction Gouty tophus Damon Mooney M.D.,FACP 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 Allopurinol Take 2 Tablets 180tabs M10.9 Coretta Hinson MD 02/23/2015 100mg By Mouth Every Tablets Day Sertraline HCL [id number] by 90tabs Mana Carcamo MD 04/30/2012 50mg mouth Tablets Acidophilus 1 po qd Unknown Tablets Finasteride 1 po qd 30tabs Unknown 5mg Tablets Vitamin D 1 by mouth every Unknown 1000Unit day Capsules Xtandi Take 4 PO qd BaEd ovalle E., 40mg Capsules Furosemide take one daily Durga Ed E., 20mg Tablets (does not take MD when going out) History Medications Xofigo enzalutamide Ed Calixto M.D. 04/09/2019 - 04/12/2019 30McCi/ML Solution Immunizations CPT Code Status Date Vaccine Lot # [id number] Given 11/20/2018 Influenza Virus Vaccine, Quadrivalent, Split, Im Use 6-35mo 35169 Given 11/25/2017 Fluzone High Dose 79396 Given 11/14/2017 Zoster (Shingles) Vaccine (HZV), Recombinant, Subunit, Adjuvanted 31732 Given 06/19/2017 Zoster (Shingles) Vaccine (HZV), Recombinant, Subunit, Adjuvanted 04816 Given 11/28/2016 Influenza Virus 3Yrs & Over 09905 Given 11/20/2015 Influ Virus Vaccine, Quadrivalent, Split Virus, [place] [address] Given 02/23/2015 Tetanus And Diptheria (Td) For Adult Use [id number] Preservative Free 25518 Given 02/23/2015 Pneumococcal Conjugate Vaccine 13 Valent For [id number] Intramuscular Use 31738 Given 12/01/2014 Fluzone High Dose 82107 Given 01/08/2013 Flu Vaccine Split Virus Preservative Free For Indiv 3Yr Older 49659 Given 12/21/2012 Fluzone High Dose 16402 Given 11/20/2011 Influenza Virus 3Yrs & Over Q2038 Given 11/01/2010 Fluzone Vaccine [id number] 26410 Given 11/19/2009 Influenza Virus 3Yrs & Over 81317 Given 12/05/2008 Influenza Virus 3Yrs & Over [id number] 66492 Given 12/10/2007 Influenza Virus 3Yrs & Over 06366 81298 Given 12/19/2006 Influenza Virus 3Yrs & Over 46668 Given 12/19/2006 Influenza Virus 3Yrs & Over 40893 Given 12/19/2006 Influenza Virus 3Yrs & Over [id number] 93126 Given 12/17/2005 Pneumonia Vaccine [id number] Vital Signs Date Vital Result Comment 04/12/2019 8:03am Height 68.50 inches 5'8.50" Weight 198.00 lb Heart Rate 71 /min BP Systolic 100 mmHg BP Diastolic 58 mmHg O2 % BldC Oximetry 99 % BMI (Body Mass Index) 29.7 kg/m2 02/22/2019 2:00pm Height 68.50 inches 5'8.50" Weight 204.00 lb Heart Rate 72 /min BP Systolic Sitting 106 mmHg BP Diastolic Sitting 60 mmHg Respiratory Rate 18 /min BMI (Body Mass Index) 30.6 kg/m2 Results Test Acquired Date Facility Test Result H/L Range Note Laboratory test 04/12/2019 [facility] Magnesium 2.5 mg/dL Normal 1.9-2.7 finding [address] [place] [address] [phone] PSA Diagnostic 42.233 ng/mL High 0-4.000 1 Basic Metabolic 04/12/2019 [facility] Sodium 140 mmol/L Normal 135-[address] [place] [address] [phone] Potassium 5.0 mmol/L Normal 3.5-5.0 Chloride 102 mmol/L Normal 101-111 Co2 Carbon Dioxide 33 mmol/L High 22-32 Anion Gap 5 mmol/L Normal 2-11 Glucose 105 mg/dL High 70-100 Blood Urea Nitrogen 37 mg/dL High 6-24 Creatinine 0.92 mg/dL Normal 0.67-1.17 BUN/Creatinine Ratio 40.2 High 8-20 Calcium 9.6 mg/dL Normal 8.6-10.3 Egfr Non- 77.5 >60 Egfr 93.7 >60 2 Urinalysis Profile 04/12/2019 [facility] Urine Color Yellow [address] [place] [address] [phone] Urine Appearance Clear Urine Specific [place] 1.018 Normal 1.010-1.030 Urine pH 6.0 Normal 5-9 Urine Urobilinogen Negative Negative Urine Ketones Negative Negative Urine Protein Negative Negative Urine Leukocytes Negative Negative Urine Blood 2+ Abnormal Negative * * Abnormal Negative 3 Urine Nitrite Negative Negative Urine Bilirubin Negative Negative Urine Glucose Negative Negative Urine White Blood Cell Trace(0-5/hpf) Absent Urine Red Blood Cell 3+(>10/hpf) Abnormal Absent Urine Bacteria Absent Absent CBC Auto 04/12/2019 [facility] White Blood 6.7 10^3/uL Normal 3.5-10.8 Diff [address] [facility] [place] [address] [phone] Red Blood Count 4.42 10^6/uL Normal 4.18-5.48 Hemoglobin 12.4 g/dL Low 14.0-18.0 Hematocrit 37 % Low 42-52 Mean Corpuscular Volume 84 fL Normal 80-94 Mean Corpuscular Hemoglobin 28 pg Normal 27-31 Mean Corpuscular HGB Conc 33 g/dL Normal 31-36 Red Cell Distribution Width 16 % High 10-15 Platelet Count 197 10^3/uL Normal 150-450 Mean Platelet Volume 8.9 fL Normal 7.4-10.4 Abs Neutrophils 5.4 10^3/uL Normal 1.5-7.7 Abs Lymphocytes 0.5 10^3/uL Low 1.0-4.8 Abs Monocytes 0.5 10^3/uL Normal 0-0.8 Abs Eosinophils 0.3 10^3/uL Normal 0-0.6 Abs Basophils 0.0 10^3/uL Normal 0-0.2 Abs Nucleated RBC 0.0 10^3/uL Granulocyte % 80.2 % Lymphocyte % 7.8 % Monocyte % 6.7 % Eosinophil % 4.7 % Basophil % 0.6 % Nucleated Red Blood Cells % 0.1 Urine Culture And 04/12/2019 [facility] Urine SEE RESULT [address] [place] [address] [phone] Basic Metabolic 02/24/2019 [facility] Sodium 143 mmol/L Normal 135-[address] [place] [address] [phone] Potassium 4.2 mmol/L Normal 3.5-5.0 Chloride 104 mmol/L Normal 101-111 Co2 Carbon Dioxide 31 mmol/L Normal 22-32 Anion Gap 8 mmol/L Normal 2-11 Glucose 93 mg/dL Normal 70-100 Blood Urea Nitrogen 21 mg/dL Normal 6-24 Creatinine 1.00 mg/dL Normal 0.67-1.17 BUN/Creatinine Ratio 21.0 High 8-20 Calcium 9.2 mg/dL Normal 8.6-10.3 Egfr Non- 70.4 >60 Egfr 85.1 >60 5 Laboratory 02/24/2019 [facility] PSA Diagnostic 52.027 High 0- 4.0 6 test finding [address] ng/[place] [address] [phone] CBC Auto Diff 02/19/2019 [facility] White Blood 5.4 Normal 3.5 -10.[address] Count 10^3/[place] [address] [phone] Red Blood Count 3.94 10^6/uL Low 4.18-5.48 [...] Blood Cells % 0.0 Comp Metabolic 02/19/2019 [facility] Sodium 139 mmol/L Normal 135-145 Panel [address] [place] [address] [phone] Potassium 4.2 mmol/L Normal 3.5-5.0 Chloride 104 [...] Egfr Non- 81.5 >60 Egfr 98.7 >60 7 Laboratory test 02/19/2019 [facility] Magnesium 2.2 mg/dL Normal 1.9-2.[address] [facility] [place] [address] [phone] Troponin-I (TnI) 0.02 ng/mL <0.03 8 Urine Culture And 02/05/2019 [facility] Urine Culture SEE RESULT [address] [place] [address] [phone] Urine Microalbumin 02/05/2019 [facility] Ur Microalbumin 48.9 mg /L Random [address] (mg/L) [place] [address] [phone] Urine Creatinine 56.64 mg/dL Urine Microalbumin/Creatinine 86.3 High <31 Urinalysis Profile 02/05/2019 [facility] Urine Color Yellow [address] [place] [address] [phone] Urine Appearance Clear Urine Specific [place] 1.014 Normal 1.010-1.030 Urine pH 5.0 Normal 5-9 Urine Urobilinogen Negative Negative Urine Ketones Negative Negative Urine Protein Negative Negative Urine Leukocytes Negative Negative Urine Blood 1+ Abnormal Negative * * Abnormal Negative 10 Urine Nitrite Negative Negative Urine Bilirubin Negative Negative Urine Glucose Negative Negative Urine White Blood Cell Trace(0-5/hpf) Absent Urine Red Blood Cell 3+(>10/hpf) Abnormal Absent Urine Bacteria Absent Absent Comp Metabolic 01/29/2019 [facility] Sodium 136 mmol/L Normal 135-[address] [place] [address] [phone] Potassium 4.6 mmol/L Normal 3.5-5.0 Chloride 100 [...] Egfr Non- 77.5 >60 Egfr 93.7 >60 11 Laboratory 01/29/2019 [facility] TSH (Thyroid 2.03 Normal 0.34 -5.60 test finding [address] Stim Horm) mcIU/[place] [address] [phone] Vitamin B12 344 pg/mL Normal 180-914 12 CBC Auto 01/05/2019 [facility] White Blood 7.0 10^3/uL Normal 3.5-10.[address] [place] [address] [phone] Red Blood Count 4.35 10^6/uL Normal 4.18-5.48 [...] Red Blood Cells % 0.0 Comp Metabolic 01/05/2019 [facility] Sodium 138 mmol/L Normal 135-[address] [place] [address] [phone] Potassium 4.4 mmol/L Normal 3.5-5.0 Chloride 100 [...] Egfr Non- 79.6 >60 Egfr 96.4 >60 13 Laboratory 01/05/2019 [facility] PSA Diagnostic 48.351 High 0- 4.000 14 test finding [address] ng/[place] [address] [phone] Basic 12/04/2018 [facility] Sodium 138 mmol/L Normal 135-[address] [place] [address] [phone] Potassium 4.4 mmol/L Normal 3.5-5.0 Chloride 100 mmol/L Low 101-111 Co2 Carbon Dioxide 32 mmol/L Normal 22-32 Anion Gap 6 mmol/L Normal 2-11 Glucose 81 mg/dL Normal 70-100 Blood Urea Nitrogen 24 mg/dL Normal 6-24 Creatinine 0.92 mg/dL Normal 0.67-1.17 BUN/Creatinine Ratio 26.1 High 8-20 Calcium 9.2 mg/dL Normal 8.6-10.3 Egfr Non- 77.6 >60 Egfr 93.9 >60 15 CBC Auto 12/04/2018 [facility] White Blood 6.4 10^3/uL Normal 3.5-10.[address] [place] [address] [phone] Red Blood Count 4.11 10^6/uL Low 4.18-5.48 [...] Red Blood Cells % 0.0 Laboratory 12/01/2018 [facility] PSA Diagnostic 42.656 High 0- 4.0 16, 17 test finding [address] ng/[place] [address] [phone] Testosterone Total < 10.00 ng/dL Low 240-950 18 1 Serum levels of PSA measured using the [employer] DXI Hybritech immunoassay should not be interpreted as absolute evidence of the presence or absence of disease. The PSA value should be used in conjunction with other pertinent clinical diagnostic procedures. The values obtained with different assay methods or kits cannot be used interchangeably. 2 Because ethnic data is not always readily [...] 15-29 5 Kidney failure <15 (or dialysis) 3 *Ascorbic acid is present which may interfere with detection of blood. 4 SEE RESULT BELOW Name: NASIM CORTES : [address]: Thelma Kauffman MD Acct: [id number] Unit: [id number] AGE: 89 Location: [facility] Re04/12/19 SEX: M Status: REG REF SPEC: [id number] KANE: 04/12/[address]: Thelma Kauffman MD REQ: [id number] RECD: 04/12/19 STATUS: KEI SERVIN DR: Ed Calixto MD _ SOURCE: URINE SPDESC: ORDERED: Urine Culture Procedure Result Reported Site Urine Culture Final 04/13/19- 1136 ML No Growth (<1,000 CFU/mL) * ML - Main Lab . END OF REPORT DEPARTMENT OF PATHOLOGY, [address] [place] [address] Gerardo Snell M.D. Director [facility] # [id number] 5 Because ethnic data is not always [...] 5 Kidney failure <15 (or dialysis) 6 Serum levels of PSA measured using the [employer] DXI Hybritech immunoassay should not be interpreted as absolute evidence of the presence or absence of disease. The PSA value should be used in conjunction with other pertinent clinical diagnostic procedures. The values obtained with different assay methods or kits cannot be used interchangeably. 7 Because ethnic data is not always readily [...] 15-29 5 Kidney failure <15 (or dialysis) 8 Troponin-I testing on Plasma Separator Tubes (PST) has a known false positive rate of 0.20-0.40%. All positive troponins reflex immediately to secondary confirmatory testing. Using the smsPREP DxI 800 Access Immunoassay systems, the 99th percentile upper reference limit was demonstrated to be < 0.03 ng/mL. 9 SEE RESULT BELOW Name: NASIM CORTES : [address]: Daysi Bocanegra MD Acct: [id number] Unit: [id number] AGE: 89 Location: [facility] Re02/05/19 SEX: M Status: REG REF SPEC: [id number] KANE: 02/05/19-[address]: Daysi Bocanegra MD REQ: [id number] RECD: 02/05/19 STATUS: COMP _ SOURCE: URINE SPDESC: ORDERED: Urine Culture Procedure Result Reported Site Urine Culture Final 12/29/19- 0849 ML No Growth (<1,000 CFU/mL) * ML - Main Lab . END OF REPORT DEPARTMENT OF PATHOLOGY, [address] [place] [address] Gerardo Snell M.D. Director [facility] # [id number] 10 *Ascorbic acid is present which may interfere with detection of blood. 11 Because ethnic data is not always readily [...] 15-29 5 Kidney failure <15 (or dialysis) 12 Normal Range 180 to 914 Indeterminate Range 145 to 180 Deficient Range <145 13 Because ethnic data is not always readily [...] 15-29 5 Kidney failure <15 (or dialysis) 14 Serum levels of PSA measured using the [employer] DXI Hybritech immunoassay should not be interpreted as absolute evidence of the presence or absence of disease. The PSA value should be used in conjunction with other pertinent clinical diagnostic procedures. The values obtained with different assay methods or kits cannot be used interchangeably. 15 Because ethnic data is not always readily [...] 15-29 5 Kidney failure <15 (or dialysis) 16 [id number] 17 Serum levels of PSA measured using the [employer] DXI Hybritech immunoassay should not be interpreted as absolute evidence of the presence or absence of disease. The PSA value should be used in conjunction with other pertinent clinical diagnostic procedures. The values obtained with different assay methods or kits cannot be used interchangeably. 18 [id number] Procedures Date Code Description Status 01/01/2019 75591 ECHO Transthoracic, Real-Time 2D With Doppler And Completed Color Flow 01/01/2019 13285 ECHO Transthoracic, Real-Time 2D With Doppler And Completed Color Flow 12/07/2018 92326 EKG Tracing & Interpretation Completed 08/20/2008 [id number] Colonoscopy Completed 03/27/2007 [id number] Bone Mineral Density Test Completed 03/26/2007 [id number] Bone Mineral Density Test Completed Medical Devices Description No Information Available Encounters Type Date Location Provider Dx Diagnosis Office Visit 04/12/2019 [facility] Internal Thelma Jamari, K59.00 Constipation , 8:00a Medicine - George Macdonald unspecified C61 Malignant neoplasm of prostate R29.6 Repeated falls R60.0 Localized edema Office Visit 02/22/2019 1:45p [facility] Emile Reynoso G31.84 Mild cognitive Services [facility] Torres Lemos impairment, so stated R60.9 Edema, unspecified R53.1 Weakness R29.6 Repeated falls Office Visit 02/08/2019 [facility] Emile Reynoso R29.6 Repeated falls 9:00a Clinic Torres Lemos R53.1 Weakness Office Visit 02/05/2019 3:00p [facility] Internal Daysi R60.9 Edema, unspecified Medicine - MD Daljit Ccmob G31.84 Mild cognitive impairment, so stated Office Visit 01/29/2019 [facility] Emile Reynoso F33.0 Major 9:45a Clinic [facility] [place]os depressive disorder, recurrent, mild G31.84 Mild cognitive impairment, so stated R29.6 Repeated falls Office Visit 12/07/2018 1:40p [facility] Davion STheodore I34.0 Nonrheumatic mitral [facility] Panda (valve) FACC insufficiency I48.0 Paroxysmal atrial fibrillation Office Visit 11/13/2018 [facility] Emile Reynoso F33.0 Major 8:45a Clinic [facility] Lemos depressive disorder, recurrent, mild G31.84 Mild cognitive impairment, so stated C61 Malignant neoplasm of prostate Assessments Date Code Description Provider 04/12/2019 K59.00 Constipation, unspecified Thelma Kauffman M.D. 04/12/2019 C61 Malignant neoplasm of prostate Thelma Kauffman M.D. 04/12/2019 R29.6 Repeated falls Thelma Kauffman M.D. 04/12/2019 R60.0 Localized edema Thelma Kauffman M.D. 02/22/2019 G31.84 Mild cognitive impairment, so stated [...] 01/01/2019 I34.0 Nonrheumatic mitral (valve) insufficiency Davion Mosqueda, DO FAC 01/01/2019 I34.0 Nonrheumatic mitral (valve) insufficiency [place] [facility] Schedule 12/07/2018 I34.0 Nonrheumatic mitral (valve) insufficiency Davion Mosqueda, DO FACC 12/07/2018 I48.0 Paroxysmal atrial fibrillation Davion Mosqueda, DO FAC 11/13/2018 F33.0 Major depressive disorder, recurrent, mild Emile Lemos M.D. 11/13/2018 G31.84 Mild cognitive impairment, so stated Emile Lemos M.D. 11/13/2018 C61 Malignant neoplasm of prostate Emile Lemos M.D. Plan of Treatment Future Appointment(s):05/03/2019 10:20 am - Thelma Kauffman M.D. at [facility] Internal Medicine - [facility]05/28/2019 8:45 am - Emile Lemos M.D. at [facility] [id number]/19/2019 10:45 am - Emile Lemos M.D. at [facility] [id number]/03/2019 10:00 am - Mana Carcamo MD at [facility] Internal Medicine - [facility]02/22/2019 - Emile Lemos M.D.G31.84 Mild cognitive impairment, so koybpsK10.9 Edema, icecjdiidndG20.1 VoajoczgH30.6 Repeated fallsNew Medication:Carbidopa-Levodopa 25-100 mg - 1 by mouth every am after meals for 1 week then 1 twice a day after meals for 1 week then 1 three times a day after mealsFollow up:3 months Functional Status Description No Information Available Mental Status Description No Information Available Referrals Description No Information Available
--- OUTSIDE RECORDS SUMMARY | 2019-04-19 01:10 | XMS REPORT | Continuity of Care Document ---
:1930 External Reference #:[id number] Author Name Thelma Kauffman M.D. (transmitted by agent of provider Mena Ross) Address [address] [facility] [address], [place] [address] Care Team Providers Name Role Phone Roosevelt Acevedo MD - Urology Care Team Information [employer]addy [phone] Kris Villagran MD - Care Team Information [employer] [phone] Otolaryngology Mana Carcamo M.D. - Family Medicine Care Team Information [employer] [phone] Ed Calixto MD - Hematology Care Team Information [employer] Problems Active Problems Provider Date Malignant tumor [...] By Mouth Every Tablets Day Sertraline HCL [id number] by 90tabs Mana Carcamo MD 04/30/2012 50mg mouth Tablets Acidophilus 1 po qd Unknown Tablets Finasteride 1 po qd 30tabs Unknown 5mg Tablets Vitamin D 1 by mouth every Unknown 1000Unit day Capsules Xtandi Take 4 PO qd Ed Calixto E., 40mg Capsules Furosemide take one daily Ed Calixto E., 20mg Tablets (does not take MD when going out) History Medications Xofigo enzalutamide Ed Calixto M.D. 04/09/2019 - 04/12/2019 30McCi/ML Solution Immunizations CPT Code Status Date Vaccine Lot # [id number] Given 11/20/2018 Influenza Virus Vaccine, Quadrivalent, Split, Im Use 6-35mo 65841 Given 11/25/2017 Fluzone High Dose 05606 Given 11/14/2017 Zoster (Shingles) Vaccine (HZV), Recombinant, Subunit, Adjuvanted 89667 Given 06/19/2017 Zoster (Shingles) Vaccine (HZV), Recombinant, Subunit, Adjuvanted 94100 Given 11/28/2016 Influenza Virus 3Yrs & Over 54973 Given 11/20/2015 Influ Virus Vaccine, Quadrivalent, Split Virus, [place] [address] Given 02/23/2015 Tetanus And Diptheria (Td) For Adult Use [id number] Preservative Free 96071 Given 02/23/2015 Pneumococcal Conjugate Vaccine 13 Valent For [id number] Intramuscular Use 24665 Given 12/01/2014 Fluzone High Dose 58055 Given 01/08/2013 Flu Vaccine Split Virus Preservative Free For Indiv 3Yr Older 09020 Given 12/21/2012 Fluzone High Dose 65157 Given 11/20/2011 Influenza Virus 3Yrs & Over Q2038 Given 11/01/2010 Fluzone Vaccine [id number] 02358 Given 11/19/2009 Influenza Virus 3Yrs & Over 04178 Given 12/05/2008 Influenza Virus 3Yrs & Over [id number] 51730 Given 12/10/2007 Influenza Virus 3Yrs & Over 05780 40879 Given 12/19/2006 Influenza Virus 3Yrs & Over 31018 Given 12/19/2006 Influenza Virus 3Yrs & Over 59526 Given 12/19/2006 Influenza Virus 3Yrs & Over [id number] 74478 Given 12/17/2005 Pneumonia Vaccine [id number] Vital Signs [...] Date Facility Test Result H/L Range Note Basic Metabolic 02/24/2019 [facility] Sodium 143 mmol/L Normal 135-[address] [place] [address] [phone] Potassium 4.2 mmol/L Normal 3.5-5.0 Chloride 104 mmol/L Normal 101-111 Co2 Carbon Dioxide 31 mmol/L Normal 22-32 Anion Gap 8 mmol/L Normal 2-11 Glucose 93 mg/dL Normal 70-100 Blood Urea Nitrogen 21 mg/dL Normal 6-24 Creatinine 1.00 mg/dL Normal 0.67-1.17 BUN/Creatinine Ratio 21.0 High 8-20 Calcium 9.2 mg/dL Normal 8.6-10.3 Egfr Non- 70.4 >60 Egfr 85.1 >60 1 Laboratory 02/24/2019 [facility] PSA Diagnostic 52.027 High 0- 4.0 2 test finding [address] ng/[place] [address] [phone] CBC Auto Diff 02/19/2019 [facility] White Blood 5.4 Normal 3.5 -10.[address] Count 10^3/[place] [address] [phone] Red Blood Count 3.94 10^6/uL Low 4.18-5.48 [...] Blood Cells % 0.0 Comp Metabolic 02/19/2019 [facility] Sodium 139 mmol/L Normal 135-145 [place] [address] [phone] Potassium 4.2 mmol/L Normal 3.5-5.0 Chloride 104 [...] Egfr Non- 81.5 >60 Egfr 98.7 >60 3 Laboratory test 02/19/2019 [facility] Magnesium 2.2 mg/dL Normal 1.9-2.7 [place] [address] [phone] Troponin-I (TnI) 0.02 ng/mL <0.03 4 Urinalysis Profile 02/05/2019 [facility] [place] [address] [phone] Urine Appearance Clear Urine Specific [place] 1.014 Normal 1.010-1.030 Urine pH 5.0 Normal 5-9 Urine Urobilinogen Negative Negative Urine Ketones Negative Negative Urine Protein Negative Negative Urine Leukocytes Negative Negative Urine Blood 1+ Abnormal Negative * * Abnormal Negative 5 Urine Nitrite Negative Negative Urine Bilirubin Negative Negative Urine Glucose Negative Negative Urine White Blood Cell Trace(0-5/hpf) Absent Urine Red Blood Cell 3+(>10/hpf) Abnormal Absent Urine Bacteria Absent Absent Urine Microalbumin 02/05/2019 [facility] Ur Microalbumin 48.9 mg /L Random [address] (mg/L) [place], [place] [id number] [phone] Urine Creatinine 56.64 mg/dL Urine Microalbumin/Creatinine 86.3 High <31 Urine Culture And 02/05/2019 [facility] Urine SEE RESULT [address] [place] [address] [phone] Comp Metabolic 01/29/2019 [facility] Sodium 136 mmol/L Normal 135-[address] [place] [address] [phone] Potassium 4.6 mmol/L Normal 3.5-5.0 Chloride 100 [...] Egfr Non- 77.5 >60 Egfr 93.7 >60 7 Laboratory 01/29/2019 [facility] TSH (Thyroid 2.03 Normal 0.34 -5.60 test finding [address] Stim Horm) mcIU/[place] [address] [phone] Vitamin B12 344 pg/mL Normal 180-914 8 Laboratory test 01/05/2019 [facility] PSA Diagnostic 48.351 High 0-4.[address] ng/[place] [address] [phone] Comp Metabolic 01/05/2019 [facility] Sodium 138 mmol/L Normal 135-[address] [place] [address] [phone] Potassium 4.4 mmol/L Normal 3.5-5.0 Chloride 100 [...] Egfr Non- 79.6 >60 Egfr 96.4 >60 10 CBC Auto 01/05/2019 [facility] White Blood 7.0 10^3/uL Normal 3.5-10.[address] [place] [address] [phone] Red Blood Count 4.35 10^6/uL Normal 4.18-5.48 [...] Blood Cells % 0.0 Basic Metabolic 12/04/2018 [facility] Sodium 138 mmol/L Normal 135-[address] [place] [address] [phone] Potassium 4.4 mmol/L Normal 3.5-5.0 Chloride 100 mmol/L Low 101-111 Co2 Carbon Dioxide 32 mmol/L Normal 22-32 Anion Gap 6 mmol/L Normal 2-11 Glucose 81 mg/dL Normal 70-100 Blood Urea Nitrogen 24 mg/dL Normal 6-24 Creatinine 0.92 mg/dL Normal 0.67-1.17 BUN/Creatinine Ratio 26.1 High 8-20 Calcium 9.2 mg/dL Normal 8.6-10.3 Egfr Non- 77.6 >60 Egfr 93.9 >60 11 CBC Auto 12/04/2018 [facility] White Blood 6.4 10^3/uL Normal 3.5-10.[address] [place] [address] [phone] Red Blood Count 4.11 10^6/uL Low 4.18-5.48 [...] Red Blood Cells % 0.0 Laboratory 12/01/2018 [facility] PSA Diagnostic 42.656 High 0- 4.0 12, 13 test finding [address] ng/[place] [address] [phone] Testosterone Total < 10.00 ng/dL Low 240-950 14 1 Because ethnic data is not always [...] 5 Kidney failure <15 (or dialysis) 2 Serum levels of PSA measured using the [employer] Spine DXI Hybritech immunoassay should not be interpreted as absolute evidence of the presence or absence of disease. The PSA value should be used in conjunction with other pertinent clinical diagnostic procedures. The values obtained with different assay methods or kits cannot be used interchangeably. 3 Because ethnic data is not always readily [...] 15-29 5 Kidney failure <15 (or dialysis) 4 Troponin-I testing on Plasma Separator Tubes (PST) has a known false positive rate of 0.20-0.40%. All positive troponins reflex immediately to secondary confirmatory testing. Using the SubC Control DxI 800 Access Immunoassay systems, the 99th percentile upper reference limit was demonstrated to be < 0.03 ng/mL. 5 *Ascorbic acid is present which may interfere with detection of blood. 6 SEE RESULT BELOW Name: NASIM AGUERO : [address]: Daysi Bocanegra MD Acct: [id number] Unit: [id number] AGE: 89 Location: [facility] Re02/05/19 SEX: M Status: REG REF SPEC: [id number] KANE: 02/05/[address] [facility] [address]: Daysi Bocanegra MD REQ: [id number] RECD: 02/05/19 STATUS: COMP _ SOURCE: URINE SPDESC: ORDERED: Urine Culture Procedure Result Reported Site Urine Culture Final 02/07/19- 0849 ML No Growth (<1,000 CFU/mL) * ML - Main Lab . END OF REPORT DEPARTMENT OF PATHOLOGY, [address] [place] [address] Gerardo Snell M.D. Director [facility] # [id number] 7 Because ethnic data is not always [...] 5 Kidney failure <15 (or dialysis) 8 Normal Range 180 to 914 Indeterminate Range 145 to 180 Deficient Range <145 9 Serum levels of PSA measured using the Thea Carl DXI Hybritech immunoassay should not be interpreted as absolute evidence of the presence or absence of disease. The PSA value should be used in conjunction with other pertinent clinical diagnostic procedures. The values obtained with different assay methods or kits cannot be used interchangeably. 10 Because ethnic data is not always readily [...] 15-29 5 Kidney failure <15 (or dialysis) 11 Because ethnic data is not always [...] 5 Kidney failure <15 (or dialysis) 12 [id number] 13 Serum levels of PSA measured using the Thea CarZumer DXI Hybritech immunoassay should not be interpreted as absolute evidence of the presence or absence of disease. The PSA value should be used in conjunction with other pertinent clinical diagnostic procedures. The values obtained with different assay methods or kits cannot be used interchangeably. 14 [id number] Procedures Date Code Description Status 01/01/2019 69863 ECHO Transthoracic, Real-Time 2D With Doppler And Completed Color Flow 01/01/2019 89807 ECHO Transthoracic, Real-Time 2D With Doppler And Completed Color Flow 12/07/2018 28805 EKG Tracing & Interpretation Completed 08/20/2008 [id number] Colonoscopy Completed 03/27/2007 [id number] Bone Mineral Density Test Completed 03/26/2007 [id number] Bone Mineral Density Test Completed Medical Devices Description No Information Available Encounters Type Date Location Provider Dx Diagnosis Office Visit 02/22/2019 Kaye Reynoso G31.84 Mild cognitive 1:45p Services Of Amina Lemos M.D. 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 I34.0 Nonrheumatic mitral Of [facility] DO Panda (valve) FACC insufficiency I48.0 Paroxysmal atrial fibrillation Office Visit 11/13/2018 [facility] Em[facility] Reynoso F33.0 Major 8:45a [facility] depressive disorder, recurrent, mild G31.84 Mild cognitive impairment, so stated C61 Malignant neoplasm of prostate Assessments Date Code Description Provider 04/12/2019 Z91.81 History of falling Thelma Kauffman M.D. 04/12/2019 R60.9 Edema, unspecified Thelma Kauffman M.D. 04/12/2019 K59.00 Constipation, unspecified Thelma Kauffman M.D. 02/22/2019 G31.84 Mild cognitive [...] 01/01/2019 I34.0 Nonrheumatic mitral (valve) insufficiency Davion TimaTheodore Mosqueda, DO FACC 01/01/2019 I34.0 Nonrheumatic mitral (valve) insufficiency [place] [facility] Schedule 12/07/2018 I34.0 Nonrheumatic mitral (valve) insufficiency Davion Mosqueda, DO FACC 12/07/2018 I48.0 Paroxysmal atrial fibrillation Davion Mosqueda, DO FAC 11/13/2018 F33.0 Major depressive disorder, recurrent, mild Emile Lemos M.D. 11/13/2018 G31.84 Mild cognitive impairment, so stated Emile Lemos M.D. 11/13/2018 C61 Malignant neoplasm of prostate Emile Lemos M.D. Plan of Treatment Future Appointment(s):05/03/2019 10:20 am - Thelma Kauffman M.D. at [facility] - [facility]05/28/2019 8:45 am - Emile Lemos M.D. at [facility] [id number]/19/2019 10:45 am - Emile Lemos M.D. at [facility] [id number]/03/2019 10:00 am - Mana Carcamo MD at [facility] - [facility]04/12/2019 - Thelma Kauffman M.D.Z91.81 History of fallingNew Therapy:Physical TherapyComments:Falling - VNS referral for PTConsider risk of Eliquis Consider an aidePlease review the MOLST formFollow up:3 [id number] Edema , unspecifiedComments:Heart - A fib contributes to leg swellingKidneys - labsBlood clots - highly unlikely given that you take blood thinnerUse the dbobntixH90.00 Constipation, unspecifiedComments:Take MiraLax every dayOr try Senokot (senna) - start with one twice a daily Functional Status Description No Information Available Mental Status Description No Information Available Referrals Description No Information Available
--- NOTE | 2019-04-19 01:23 | ED ---
Head Injury - HPI Summary HPI Summary: Patient is an 89 y/o M presenting to [facility] via EMS with chief complaint of head injury after a fall. He was taking a shower when he slipped and fell in the bathroom. No LOC noted but the patient is on anti-coagulation therapy. Some CISNEROS, abrasion and swelling to left ear noted as well. Home medications and allergies are reviewed. Home Medications Medication Instructions Recorded Confirmed Type Allopurinol TAB* [Zyloprim 100 MG 100 mg PO BID 01/15/18 03/29/19 History TAB*] Apixaban* [Eliquis*] 2.5 mg PO BID 01/15/18 03/29/19 History Cholecalciferol TAB* [Vitamin D 2,000 unit PO DAILY 01/15/18 03/29/19 History TAB*] Sertraline* [Zoloft*] 50 mg PO QPM 01/15/18 03/29/19 History Finasteride TAB* [Proscar TAB*] 5 mg PO DAILY 02/19/19 03/29/19 History Carbidopa/Levodop 25/100 MG(*) 1 tab PO TID 03/29/19 03/29/19 History [Sinemet 25/100 TAB(*)] Lactobacillus Acidophilus 1 tab PO DAILY 03/29/19 03/29/19 History [Probiotic Acidophilus] Psyllium TARAH* [Metamucil TARAH*] 1 pkt PO DAILY 03/29/19 03/29/19 History - History Of Current Complaint Chief Complaint: EDHeadInjury Stated Complaint: FALL Time Seen by Provider: 04/18/19 23:56 Hx Obtained From: Patient Mechanism Of Injury: Fall From A Standing Position Onset/Duration: Still Present Onset of Pain: Prior to Arrival Severity Currently: Mild Pain Intensity: 2 Pain Scale Used: 0-10 Numeric Associated Signs And Symptoms: Swelling - left ear, Bruising - left ear - Allergies/Home Medications Allergies/Adverse Reactions: Allergies Allergy/AdvReac Type Severity Reaction Status Date / Time donepezil [From Aricept] AdvReac Mild Dizziness Verified 03/29/19 13:12 Home Medications: Home Medications Allopurinol TAB* [Zyloprim 100 MG TAB*] 100 mg PO BID 01/15/18 [History Confirmed 03/29/19] Apixaban* [Eliquis*] 2.5 mg PO BID 01/15/18 [History Confirmed 03/29/19] Cholecalciferol TAB* [Vitamin D TAB*] 2,000 unit PO DAILY 01/15/18 [History Confirmed 03/29/19] Sertraline* [Zoloft*] 50 mg PO QPM 01/15/18 [History Confirmed 03/29/19] Finasteride TAB* [Proscar TAB*] 5 mg PO DAILY 02/19/19 [History Confirmed ] Carbidopa/Levodop 25/100 MG(*) [Sinemet 25/100 TAB(*)] 1 tab PO TID 03/29/19 [ History Confirmed 03/29/19] Lactobacillus Acidophilus [Probiotic Acidophilus] 1 tab PO DAILY 03/29/19 [ History Confirmed 03/29/19] Psyllium TARAH* [Metamucil TARAH*] 1 pkt PO DAILY 03/29/19 [History Confirmed ] PMH/Surg Hx/FS Hx/Imm Hx Endocrine/Hematology History: Reports: Hx Anticoagulant Therapy Denies: Hx Diabetes Cardiovascular History: Reports: Hx Atrial Fibrillation Denies: Hx Pacemaker/ICD Respiratory History: Reports: Hx Sleep Apnea History: Denies: Hx Renal Disease Sensory History: Denies: Hx Hearing Aid Psychiatric History: Denies: Hx Panic Disorder - Cancer History Cancer Type, Location and Year: PROSTATE CA - Surgical History Surgery Procedure, Year, and Place: APPENDECTOMY. TONSILS - Immunization History Date of Influenza Vaccine: 10/2018 Infectious Disease History: Unable to Obtain/Confirm Infectious Disease History: Denies: Traveled Outside the [place] in Last 30 Days - Family History Known Family History: Positive: Other - Colon surgery - Social History Alcohol Use: None Alcohol Amount: 1 drink a year Hx Substance Use: No Substance Use Type: Reports: None Hx Tobacco Use: No Smoking Status (MU): Never Smoked Tobacco Review of Systems Positive: Edema - left ear , Other - fall Positive: Other - left ear abrasion Neurological/Mental Status: Other - positive - head injury All Other Systems Reviewed And Are Negative: Yes Physical Exam - Summary Physical Exam Summary: Appearance: Well-appearing, Well-nourished, lying in bed comfortably Skin: Warm, dry, no obvious rash; small abrasion to vertex of the scalp, a small contusion of the pinna of the left ear, small abrasion to skin behind the left ear Eyes: sclera anicteric, no conjunctival pallor HENT: mucous membranes moist, pharynx appears normal Neck: Supple, nontender Respiratory: Clear to auscultation, no signs of respiratory distress Cardiovascular: Normal S1, S2. No murmurs. Normal distal pulses in tibial and radial bilaterally. Abdomen: Soft, nontender, normal active bowel sounds present Musculoskeletal: Normal, Strength/ROM Intact Neurological: A&Ox3, awake and alert, mentation is normal, speech is fluent and appropriate, GCS 15 Psychiatric: affect is normal, does not appear anxious or depressed Triage Information Reviewed: Yes Vital Signs On Initial Exam: Initial Vitals Temp Pulse Resp BP Pulse Ox 97.3 F 67 18 119/73 92 04/18/19 23:43 04/18/19 23:43 04/18/19 23:43 04/18/19 23:43 04/18/19 23:43 Vital Signs Reviewed: Yes - Makenzie Coma Scale Best Eye Response: 4 - Spontaneous Best Motor Response: 6 - Obeys Commands Best Verbal Response: 5 - Oriented Coma Scale Total: 15 Procedures - Sedation Patient Received Moderate/Deep Sedation with Procedure: No Diagnostics - Vital Signs Vital Signs Temp Pulse Resp BP Pulse Ox 04/19/19 00:43 72 132/85 95 04/19/19 00:00 78 91 04/18/19 23:50 68 95 04/18/19 23:44 67 119/73 92 04/18/19 23:43 97.3 F 67 18 119/73 92 - Laboratory Lab Statement: Any lab studies that have been ordered have been reviewed, and results considered in the medical decision making process. - CT BRAIN CT CT Interpretation Completed By: Radiologist Summary of CT Findings: IMPRESSION: Cerebral atrophy. There is no significant interval change from the previous study. THIS REPORT WAS REVIEWED BY ED PHYSICIAN. Head Injury Course/Dx Course Of Treatment: Patient is an 89 y/o M presenting to [facility] via EMS with chief complaint of head injury after a fall. He was taking a shower when he slipped and fell in the bathroom. No LOC noted but the patient is on anti- coagulation therapy. Some CISNEROS, abrasion and swelling to left ear noted as well. Physical exam showed small abrasion to vertex of the scalp, a small contusion of the pinna of the left ear, small abrasion to skin behind the left ear. GCS is 15. BRAIN CT IMPRESSION: Cerebral atrophy. There is no significant interval change from the previous study. Results of CT discussed with patient and who later arrived. Patient discharged to home. - Diagnoses Provider Diagnoses: Head injury, Fall Discharge ED - Sign-Out/Discharge Documenting (check all that apply): Patient Departure - discharge - Discharge Plan Condition: Good Disposition: HOME Patient Education Materials: Head Injury (ED) Referrals: Mana Carcamo MD [Primary Care Provider] - - Billing Disposition and Condition Condition: GOOD Disposition: Home - Attestation Statements Document Initiated by Clifford: Yes Documenting Scribe: LISSY EDEN Provider For Whom Clifford is Documenting (Include Credential): MARIAH GALLEGO MD Scribe Attestation: LISSY Rashid, scribed for MARIAH GALLEGO MD on 04/23/19 at 0202. Scribe Documentation Reviewed: Yes Provider Attestation: The documentation as recorded by the LISSY fuentes accurately reflects the service I personally performed and the decisions made by me, MARIAH GALLEGO MD Status of Scribe Document: Viewed
[2019-04-19 01:44] VITALS: BP 143/71
== END 2019-04-21 01:43 | disposition home or self-care (01) ==
LOC: ED 23:41
DX: S09.90XA Unspecified injury of head, initial encounter (principal); S00.412A Abrasion of left ear, initial encounter; S00.01XA Abrasion of scalp, initial encounter; W18.2XXA Fall in (into) shower or empty bathtub, initial encounter; Y93.E1 Activity, personal bathing and showering; Y92.002 Bathroom of unspecified non-institutional (private) residence as the place of occurrence of the external cause; I48.91 Unspecified atrial fibrillation; Z79.01 Long term (current) use of anticoagulants; G31.9 Degenerative disease of nervous system, unspecified; Z88.8 Allergy status to other drugs, medicaments and biological substances
CPT/HCPCS: 70450; 99281

== ENCOUNTER 2019-04-27 11:59 | Inpatient (IN) | payer MEDICARE ==
--- NOTE | 2019-04-27 12:16 | ED ---
Complex/Multi-Sys Presentation - HPI Summary HPI Summary: 89 year old M presenting to [facility] with a chief complaint of a fall earlier today. The patient reports left leg pain and left hip pain. He reportedly hit his head and hip in the fall. Symptoms aggravated by palpation. Symptoms alleviated by nothing. Patient reports living at [place]. He does not remember the fall. Medication list reviewed. Allergy list reviewed. THE HPI IS LIMITED DUE TO LEVEL 5 CAVEAT - Memory deficit. Home Medications Medication Instructions Recorded Confirmed Type Allopurinol TAB* [Zyloprim 100 MG 100 mg PO BID 01/15/18 03/29/19 History TAB*] Apixaban* [Eliquis*] 2.5 mg PO BID 01/15/18 03/29/19 History Cholecalciferol TAB* [Vitamin D 2,000 unit PO DAILY 01/15/18 03/29/19 History TAB*] Sertraline* [Zoloft*] 50 mg PO QPM 01/15/18 03/29/19 History Finasteride TAB* [Proscar TAB*] 5 mg PO DAILY 02/19/19 03/29/19 History Carbidopa/Levodop 25/100 MG(*) 1 tab PO TID 03/29/19 03/29/19 History [Sinemet 25/100 TAB(*)] Lactobacillus Acidophilus 1 tab PO DAILY 03/29/19 03/29/19 History [Probiotic Acidophilus] Psyllium TARAH* [Metamucil TARAH*] 1 pkt PO DAILY 03/29/19 03/29/19 History - History Of Current Complaint Time Seen by Provider: 04/27/19 12:05 Hx Obtained From: Patient Onset/Duration: Sudden Onset Timing: Constant Aggravating Factor(s): Palpation Alleviating Factor(s): None Associated Signs And Symptoms: Positive: Other - Left leg pain, left hip pain, memory deficit - Allergies/Home Medications Allergies/Adverse Reactions: Allergies Allergy/AdvReac Type Severity Reaction Status Date / Time donepezil [From Aricept] AdvReac Mild Dizziness Verified 03/29/19 13:12 Home Medications: Home Medications Allopurinol TAB* [Zyloprim 100 MG TAB*] 200 mg PO DAILY 01/15/18 [History Confirmed 04/27/19] Apixaban* [Eliquis*] 2.5 mg PO BID 01/15/18 [History Confirmed 04/27/19] Cholecalciferol TAB* [Vitamin D TAB*] 1,000 unit PO DAILY 01/15/18 [History Confirmed 04/27/19] Sertraline* [Zoloft*] 50 mg PO DAILY 01/15/18 [History Confirmed 04/27/19] Finasteride TAB* [Proscar TAB*] 5 mg PO DAILY 02/19/19 [History Confirmed ] Carbidopa/Levodop 25/100 MG(*) [Sinemet 25/100 TAB(*)] 1 tab PO TID 03/29/19 [ History Confirmed 04/27/19] Lactobacillus Acidophilus [Probiotic Acidophilus] 1 tab PO DAILY 03/29/19 [ History Confirmed 04/27/19] Furosemide TAB* [Lasix TAB*] 20 mg PO DAILY 04/27/19 [History Confirmed 04/27/19 ] Xtandi 40mg 160 mg PO DAILY 04/27/19 [History Confirmed 04/27/19] PMH/Surg Hx/FS Hx/Imm Hx Endocrine/Hematology History: Reports: Hx Anticoagulant Therapy Denies: Hx Diabetes Cardiovascular History: Reports: Hx Atrial Fibrillation Denies: Hx Pacemaker/ICD Respiratory History: Reports: Hx Sleep Apnea History: Denies: Hx Renal Disease Sensory History: Denies: Hx Hearing Aid Psychiatric History: Denies: Hx Panic Disorder - Cancer History Cancer Type, Location and Year: PROSTATE CA - Surgical History Surgery Procedure, Year, and Place: APPENDECTOMY. TONSILS - Immunization History Date of Influenza Vaccine: 10/2018 Infectious Disease History: No Infectious Disease History: Denies: Traveled Outside the [place] in Last 30 Days - Family History Known Family History: Positive: Other - Colon surgery - Social History Alcohol Use: None Alcohol Amount: 1 drink a year Hx Substance Use: No Substance Use Type: Reports: None Hx Tobacco Use: No Smoking Status (MU): Never Smoked Tobacco - Additional Comments History Additional Comments: LIMITED DUE TO LEVEL 5 CAVEAT - Memory deficit. Review of Systems Positive: Other - Left leg pain, left hip pain Neurological/Mental Status: Other - Memory deficit All Other Systems Reviewed And Are Negative: No - Comments Additional Review of Systems Comments: THE ROS IS LIMITED DUE TO LEVEL 5 CAVEAT - Memory deficit. Physical Exam - Summary Physical Exam Summary: THE Physical Exam IS LIMITED DUE TO LEVEL 5 CAVEAT - Memory deficit. Constitutional: Well-developed, Well-nourished, Alert. (-) Distressed Skin: Warm, Dry, small skin tear on the left elbow, no bony tenderness HENT: Normocephalic; Atraumatic Eyes: Conjunctiva normal Neck: Musculoskeletal ROM normal neck. (-) JVD, (-) Stridor, (-) Tracheal deviation Cardio: Rhythm regular, rate normal, Heart sounds normal; Intact distal pulses; 2+ DP and PT pulse. (-) Murmur Pulmonary/Chest wall: Effort normal. (-) Respiratory distress, (-) Wheezes, (-) Rales Abd: Soft, (-) tenderness, (-) Distension, (-) Guarding, (-) Rebound Musculoskeletal: (-) Edema, tenderness to the left hip, left leg is externally rotated and shortened. Lymph: (-) Cervical adenopathy Neuro: Alert, Oriented x3, GCS 15. Psych: Mood and affect Normal Triage Information Reviewed: Yes Vital Signs On Initial Exam: Initial Vitals Temp Pulse Resp BP Pulse Ox 96.3 F 77 18 123/78 95 04/27/19 12:06 04/27/19 12:06 04/27/19 12:06 04/27/19 12:06 04/27/19 12:06 Vital Signs Reviewed: Yes - Makenzie Coma Scale Best Eye Response: 4 - Spontaneous Best Motor Response: 6 - Obeys Commands Best Verbal Response: 5 - Oriented Coma Scale Total: 15 Procedures - Sedation Patient Received Moderate/Deep Sedation with Procedure: No Diagnostics - Vital Signs Vital Signs Temp Pulse Resp BP Pulse Ox 04/27/19 12:06 96.3 F 77 18 123/78 95 - Laboratory Result Diagrams: 04/27/19 12:26 04/27/19 12:26 Lab Statement: Any lab studies that have been ordered have been reviewed, and results considered in the medical decision making process. - Radiology Hip/Pelvis x-ray Radiology Interpretation Completed By: Radiologist Summary of Radiographic Findings: ANGULATED INTERTROCHANTERIC FRACTURE OF THE LEFT FEMUR. ED physician has reviewed this report. - CT Brain CT CT Interpretation Completed By: Radiologist Summary of CT Findings: NO ACUTE INTRACRANIAL PATHOLOGY. DIFFUSE INVOLUTIONAL CHANGE. ED physician has reviewed this report. Cervical Spine CT CT Interpretation Completed By: Radiologist Summary of CT Findings: 1. A new C7 lytic lesion should BE further evaluated by cervical spine MRI with contrast. 2. No cervical spine fracture or traumatic malalignment. 3. Varying degrees of multilevel spondylosis results in at least mild spinal canal stenosis at C4-C5 and C5-C6. Moderate multilevel neural foraminal stenosis. ED physician has reviewed this report. Complex Multi-Symp Course/Dx Course Of Treatment: Patient is here after a low mechanism mechanical fall. Patient's left leg is externally rotated and shortened. Patient was vascularly intact. Patient had an x-ray which showed a left intertrochanteric femur fracture. Patient is on [place] a CT head and cervical spine are ordered which were negative for trauma. Patient does have a lytic lesion in the spine and his labs are consistent with already diagnosed prostate cancer. - Diagnoses Provider Diagnoses: Fall, Femur fracture, left - Physician Notifications Discussed Care Of Patient With: Philip Chanel Time Discussed With Above Provider: 13:36 Instructed by Provider To: Other - Discussed with Dr. Craig who will come to see the patient. [13:40] Dr. Craig will admit the patient. Discharge ED - Sign-Out/Discharge Documenting (check all that apply): Patient Departure - Discharge Plan Condition: Stable Disposition: ADMITTED TO [facility] Referrals: Mana Carcamo MD [Medical Doctor] - - Billing Disposition and Condition Condition: STABLE Disposition: Admitted to [facility] - Attestation Statements Document Initiated by Clifford: Yes Documenting Scribe: Azra Hicks Provider For Whom Clifford is Documenting (Include Credential): Andrew Parker MD Scribe Attestation: Azra Rashid scribed for Andrew Parker MD on 04/27/19 at 1416. Scribe Documentation Reviewed: Yes Provider Attestation: The documentation as recorded by the Azra fuentes accurately reflects the service I personally performed and the decisions made by me, Andrew Parker MD Status of Scribe Document: Viewed
[2019-04-27 12:41] LABS: ABS Lymphocytes 0.3 10^3/ul (1.0-4.8); ABS Monocytes 0.9 10^3/ul (0-0.8); ABS Neutrophils 11.2 10^3/ul (1.5-7.7); Hematocrit 36 % (42-52); Hemoglobin 11.8 g/dL (14.0-18.0); Lymphocyte % 2.2 %; Mean Corpuscular HGB Conc 33 g/dL (31-36); Mean Corpuscular Hemoglobin 28 pg (27-31); Mean Corpuscular Volume 84 fL (80-94); Mean Platelet Volume 8.3 fL (7.4-10.4); Platelet Count 191 10^3/uL (150-450); Red Blood Count 4.27 10^6 /uL (4.18-5.48); Red Cell Distribution Width 16 % (10-15); White Blood Count 12.4 10^3/uL (3.5-10.8)
[2019-04-27 12:50] LABS: INR 1.29 (0.82-1.09)
[2019-04-27 13:00] LABS: Albumin/Globulin Ratio 1.5 (1-3); BUN/Creatinine Ratio 34.4 (8-20); Calcium 9.2 mg/dL (8.6-10.3); EGFR African American 89.2 (>60); EGFR Non-African American 73.8 (>60); Globulin 2.7 g/dL (2-4); Potassium 4.1 mmol/L (3.5-5.0); Total Bilirubin 0.5 mg/dL (0.2-1.0); Total Protein 6.7 g/dL (6.4-8.9)
--- OUTSIDE RECORDS SUMMARY | 2019-04-27 13:10 | XMS REPORT ---
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 Laquita disease disease 04-19 Ortiz Pain frequent Pain Mgmt Active 2020-0 Tamy pain 04-20 [place] 10:45: [id number] 00 Cardio knowledge/s Cardiovasc Active 2020-0 Tamy kill ular 04-20 [place] deficit: pt 10:45: [id number] 00 Cardio knowledge/s Cardiovasc Active 2020-0 Tamy kill ular 04-20 [place] deficit: cg 10:45: [id number] 00 Respiratory dyspnea Respirator Active 2020-0 Tamy present y 04-20 [place] 10:45: [id number] 00 Respiratory lung sounds Respirator Active 2020-0 Tamy deficit y 04-20 [place] 10:45: [id number] 00 Endo/Genaro anti-coagul Endo/Genaro Active 2020-0 Tamy ation 04-20 [place] therapy 10:45: [id number] 00 Sensory impaired Sensory Active 2020-0 Tamy hearing 04-20 [place] 10:45: [id number] 00 Nutrition nutritional Nutrition Active 2020-0 Tamy restriction 04-20 [place] s 10:45: [id number] 00 Elimination urinary Eliminatio Active 2020-0 Tamy incontinenc n 04-20 [place] e 10:45: [id number] 00 Neuro confusion Neuro/Emot Active 2020-0 Tamy present ion 04-20 [place] 10:45: [id number] 00 Neuro depressive Neuro/Emot Active 2020-0 Tamy feelings ion 04-20 [place] present 10:45: [id number] 00 Neuro impaired Neuro/Emot Active 2020-0 Tamy decision-ma ion 04-20 [place] michele 10:45: [id number] 00 Neuro memory Neuro/Emot Active 2020-0 Tamy deficit ion 04-20 [place] needing 10:45: [id number] supervision 00 Neuro knowledge/s Neuro/Emot Active 2020-0 Tamy kill ion - [place] deficit: pt 10:45: [id number] 00 Activity ADL Activity Active 2020-0 Tamy assistance - [place] required 10:45: [id number] 00 Activity self-care Activity Active 2020-0 Tamy deficit -11 [place] 10:45: [id number] 00 Safety sanitation Safety Active 2020-0 Tamy hazards - [place] present 10:45: [id number] 00 Safety cannot be Safety Active 2020-0 Tamy left alone 04-20 [place] 10:45: [id number] 00 Safety fall risk Safety Active 2020-0 Tamy factor - [place] present 10:45: [id number] 00 Safety risk for Safety Active 2020-0 Tamy hospitaliza - [place] tion 10:45: [id number] 00 Safety knowledge/s Safety Active 2020-0 Tamy kill - [place] deficit: pt 10:45: [id number] 00 Safety knowledge/s Safety Active 2020-0 Tamy kill - [place] deficit: cg 10:45: [id number] 00 Safety can be left Safety Active 2020-0 Tamy alone for 04-20 [place] only short 10:45: [id number] periods 00 Musculoskel transfer Musculoske Active 2020-0 Tamy etal assistance letal 04-20 [place] required 10:45: [id number] 00 Musculoskel requires Musculoske Active 2020-0 Tamy etal human letal 04-20 [place] assist to 10:45: [id number] leave home 00 Elimination knowledge/s Eliminatio Active 2020-0 Gopi kill n 3-11 [place] deficit: cg 11:50: [id number] 00 Bed mobility/tr PT/OT: Bed Active 2020-0 Gopi Mobility/Tr ansfer Mobility/T 3- [place] ansfer device ransfer 11:50: [id number] present 00 Bed transfer PT/OT: Bed Active 2020-0 Gopi Mobility/Tr deficit: Mobility/T 3-11 [place] ansfer shower/tub ransfer 11:50: [id number] 00 Bed transfer PT/OT: Bed Active 2020-0 Gopi Mobility/Tr deficit: Mobility/T 04-20 Cinthyaryan ansfer vehicle ransfer 11:50: [id number] 00 Balance/End balance/supervisor cooler service PT/OT: Active Gopi urance rdination Balance/En 04-20 [place]upallakiaryan deficit durance 11:50: [id number] 00 OT: Self self-care OT: Active Gopi Care deficit Self-Care 04-20 [place] 11:50: [id number] 00 Gait/Locomo gait PT/OT: Active Gopi tion assistive Gait/Locom 04-20 Hugoantoinecarly problems device otion 11:50: [id number] present 00 Gait/Locomo gait PT/OT: Active Gopi tion deficit Gait/Locom 04-20 [place] problems otion 11:50: [id number] 00 Allergies, Adverse Reactions, Alerts Allergy Allergy Type Status Severity Reaction(s) Onset Inactive Treating Comments Name Date Date Clinician Aricept Medication Active Unknown Dizzy 2019-04 Johana Name ID -10 Peyman [id number] Medications Ordered Filled Start Stop Current Ordering Indication Dosage Frequency Signature Comments Components Medication Medication Date Date Medication? Clinician (SIG) Name Name carbidopa carbidopa Yes Cotton Unknown Unknown 25 25 04-20 Sara CHE mg-levodopa mg-levodopa th 100 mg 100 mg tablet tablet Eliquis 2.5 Eliquis 2.5 2019- Yes Cotton Unknown Unknown mg tablet mg tablet 04-20 Sara CHE allopurinol allopurinol 2019- Yes Cotton Unknown Unknown 100 mg 100 mg 04-20 ,Sara tablet tablet th sertraline sertraline 0 Yes Cotton Unknown Unknown 50 mg 50 mg 04-20 ,Elisabe tablet tablet th Acidophilus Acidophilus 2019- Yes Cotton Unknown Unknown capsule capsule 04-20 ,Elisabe th finasteride finasteride 2019- Yes Cotton Unknown Unknown 5 mg tablet 5 mg tablet 04-20 MDElisadanis th Vitamin D3 Vitamin D3 2019- Yes Cotton Unknown Unknown 1,000 unit 1,000 unit 04-20 Sara CHE capsule capsule th Xtandi 40 Xtandi 40 2020- Yes Cotton Unknown Unknown mg capsule mg capsule 04-20 MDElisadanis furosemide furosemide 2019-0 Yes Cotton Unknown Unknown 20 mg 20 mg 04-20 MD,Elisabe tablet tablet th Vital Signs Vital Name Observation Time Observation Value Comments SYSTOLIC mm[Hg] 2019-04-21 18:10:49 118 mm[Hg] mm[Hg] Method: Sit SYSTOLIC mm[Hg] 2019-04-21 18:10:49 98 mm[Hg] mm[Hg] Method: Stand DIASTOLIC mm[Hg] 2019-04-21 18:10:49 72 mm[Hg] mm[Hg] Method: Sit DIASTOLIC mm[Hg] 2019-04-21 18:10:49 70 mm[Hg] mm[Hg] Method: Stand PULSE 2019-04-21 18:10:49 58 /min /min RESP RATE 2019-04-21 18:10:49 12 /min /min TEMP 2019-04-21 18:10:49 97.6 [degF] Procedures This patient has no known procedures. Results This patient has no known results.
--- OUTSIDE RECORDS SUMMARY | 2019-04-27 13:10 | XMS REPORT ---
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, disorder, recurrent, recurrent, unspecified unspecified History of History of Diagnosis Active Laquita falling falling 04-20 [place] Benign Benign Diagnosis Active Laquita prostatic prostatic 04-20 [place] hyperplasia hyperplasia without without lower lower urinary urinary tract tract symptoms symptoms Personal Personal Diagnosis Active 0 Laquita history of history of 04-20 [place] malignant malignant neoplasm of neoplasm of prostate prostate Pain frequent Pain Mgmt Active 2019-0 Tamy pain 04-20 [place] 10:45: [id number] 00 Cardio knowledge/s Cardiovasc Active 2020-0 Tamy kill ular 04-20 [place] deficit: pt 10:45: [id number] 00 Cardio knowledge/s Cardiovasc Active 2019-0 Tamy kill ular 04-20 [place] deficit: cg 10:45: [id number] 00 Respiratory dyspnea Respirator Active 2020-0 Tamy present y 04-20 [place] 10:45: [id number] 00 Respiratory lung sounds Respirator Active 2020-0 Tamy deficit y 04-20 [place] 10:45: [id number] 00 Endo/Genaro anti-coagul Endo/Genaro Active 2020-0 Tamy ation 04-20 [place] therapy 10:45: [id number] 00 Sensory impaired Sensory Active 2020-0 Tamy hearing 04-20 [place] 10:45: [id number] 00 Nutrition nutritional Nutrition Active 2019-0 Tamy restriction 04-20 [place] s 10:45: [id number] 00 Elimination urinary Eliminatio Active 2020-0 Tamy incontinenc n - [place] e 10:45: [id number] 00 Neuro confusion Neuro/Emot Active 2020-0 Tamy present ion [address] [place] [address] 10:45: [id number] 00 Neuro depressive Neuro/Emot Active 2020-0 Tamy feelings ion [address] [place] [address] present 10:45: [id number] 00 Neuro impaired Neuro/Emot Active 2020-0 Tamy decision-ma ion 04-20 [place] michele 10:45: [id number] 00 Neuro memory Neuro/Emot Active 2020-0 Tamy deficit ion [address] [place] [address] needing 10:45: [id number] supervision 00 Neuro knowledge/s Neuro/Emot Active 2020-0 Tamy kill ion [address] [place] [address] deficit: pt 10:45: [id number] 00 Activity ADL Activity Active 2020-0 Tamy assistance 04-20 [place] required 10:45: [id number] 00 Activity self-care Activity Active 2020-0 Tamy deficit [address] [place] [address] 10:45: [id number] 00 Safety sanitation Safety Active 2020-0 Tamy hazards 04-20 [place] present 10:45: [id number] 00 Safety cannot be Safety Active 2020-0 Tamy left alone 04-20 [place] 10:45: [id number] 00 Safety fall risk Safety Active 2020-0 Tamy factor 04-20 [place] present 10:45: [id number] 00 Safety risk for Safety Active 2020-0 Tamy hospitaliza 04-20 [place] tion 10:45: [id number] 00 Safety knowledge/s Safety Active 2020-0 Tamy kill [address] [place] [address] deficit: pt 10:45: [id number] 00 Safety knowledge/s Safety Active 2020-0 Tamy kill 04-20 [place] deficit: cg 10:45: [id number] 00 Safety can be left Safety Active 2020-0 Tamy alone for 04-20 [place] only short 10:45: [id number] periods 00 Musculoskel transfer Musculoske Active 2020-0 Tamy etal assistance letal [address] [place] [address] required 10:45: [id number] 00 Musculoskel requires Musculoske Active 2020-0 Tamy etal human letal [address] [place] [address] assist to 10:45: [id number] leave home 00 Elimination knowledge/s Eliminatio Active 2020-0 Gopi kill n 04-20 [place] deficit: cg 11:50: [id number] 00 Bed mobility/tr PT/OT: Bed Active Gopi Mobility/Tr ansfer Mobility/T 04-20 [place] ansfer device ransfer 11:50: [id number] present 00 Bed transfer PT/OT: Bed Active Gopi Mobility/Tr deficit: Mobility/T 04-20 [place] ansfer shower/tub ransfer 11:50: [id number] 00 Bed transfer PT/OT: Bed Active Gopi Mobility/Tr deficit: Mobility/T 04-20 [place] ansfer vehicle ransfer 11:50: [id number] 00 Balance/End balance/waste reduction coordinator PT/OT: Active Gopi urance rdination Balance/En 04-20 Kobantoineewicz deficit durance 11:50: [id number] 00 OT: Self self-care OT: Active Gopi Care deficit Self-Care 04-20 [place] 11:50: [id number] 00 Gait/Locomo gait PT/OT: Active Gopi tion assistive Gait/Locom 04-20 [place] problems device otion 11:50: [id number] present 00 Gait/Locomo gait PT/OT: Active Gopi tion deficit Gait/Locom 04-20 [place] problems otion 11:50: [id number] 00 Allergies, Adverse Reactions, Alerts Allergy Allergy Type Status Severity Reaction(s) Onset Inactive Treating Comments Name Date Date Clinician Aricept Medication Active Unknown Dizzy 2019-04 Johana Name ID -10 Peyman [id number] Medications Ordered Filled Start Stop Current Ordering Indication Dosage Frequency Signature Comments Components Medication Medication Date Date Medication? Clinician (SIG) Name Name carbidopa carbidopa Yes Cotton Unknown Unknown 25 25 - Sara CHE mg-levodopa mg-levodopa th 100 mg 100 mg tablet tablet Eliquis 2.5 Eliquis 2.5 Yes Cotton Unknown Unknown mg tablet mg tablet 04-20 ,Elisabe th allopurinol allopurinol Yes Cotton Unknown Unknown 100 mg 100 mg 04-20 MDElisadanis tablet tablet th sertraline sertraline Yes Cotton Unknown Unknown 50 mg 50 mg - MD,Elisabe tablet tablet th Acidophilus Acidophilus 2019-0 Yes Cotton Unknown Unknown capsule capsule 3- MD,Elisabe th finasteride finasteride 2019-0 Yes Cotton Unknown Unknown 5 mg tablet 5 mg tablet 3- MD,Elisabe th Vitamin D3 Vitamin D3 2019-0 Yes Cotton Unknown Unknown 1,000 unit 1,000 unit 3 MD,Elisabe capsule capsule th Xtandi 40 Xtandi 40 2019-0 Yes Cotton Unknown Unknown mg capsule mg capsule 3- MD,Elisabe th furosemide furosemide 2019-0 Yes Cotton Unknown Unknown 20 mg 20 mg - MD,Elisabe tablet tablet th Vital Signs Vital [...]
--- OUTSIDE RECORDS SUMMARY | 2019-04-27 13:10 | XMS REPORT ---
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 04-19 Ortiz Pain frequent Pain Mgmt Active 2020-0 Tamy pain 04-20 [place] 10:45: [id number] 00 Cardio knowledge/s Cardiovasc Active 2020-0 Tamy kill ular 04-20 [place] deficit: pt 10:45: [id number] 00 Cardio knowledge/s Cardiovasc Active 2020-0 Tamy kill ular 04-20 [place] deficit: cg 10:45: [id number] 00 Respiratory dyspnea Respirator Active 2020-0 Tamy present y 04-20 [place] 10:45: [id number] 00 Respiratory lung sounds Respirator Active 2020-0 Tamy deficit y 04-20 [place] 10:45: [id number] 00 Endo/Genaro anti-coagul Endo/Genaro Active 2020-0 Tamy ation 04-20 [place] therapy 10:45: [id number] 00 Sensory impaired Sensory Active 2020-0 Tamy hearing 04-20 [place] 10:45: [id number] 00 Nutrition nutritional Nutrition Active 2020-0 Tamy restriction 04-20 [place] s 10:45: [id number] 00 Elimination urinary Eliminatio Active 2020-0 Tamy incontinenc n 04-20 [place] e 10:45: [id number] 00 Neuro confusion Neuro/Emot Active 2020-0 Tamy present ion 04-20 [place] 10:45: [id number] 00 Neuro depressive Neuro/Emot Active 2020-0 Tamy feelings ion 04-20 [place] present 10:45: [id number] 00 Neuro impaired Neuro/Emot Active 2020-0 Tamy decision-ma ion 04-20 [place] michele 10:45: [id number] 00 Neuro memory Neuro/Emot Active 2020-0 Tamy deficit ion 04-20 [place] needing 10:45: [id number] supervision 00 Neuro knowledge/s Neuro/Emot Active 2020-0 Tamy kill ion - [place] deficit: pt 10:45: [id number] 00 Activity ADL Activity Active 2020-0 Tamy assistance - [place] required 10:45: [id number] 00 Activity self-care Activity Active 2020-0 Tamy deficit -11 [place] 10:45: [id number] 00 Safety sanitation Safety Active 2020-0 Tamy hazards - [place] present 10:45: [id number] 00 Safety cannot be Safety Active 2020-0 Tamy left alone 04-20 [place] 10:45: [id number] 00 Safety fall risk Safety Active 2020-0 Tamy factor - [place] present 10:45: [id number] 00 Safety risk for Safety Active 2020-0 Tamy hospitaliza - [place] tion 10:45: [id number] 00 Safety knowledge/s Safety Active 2020-0 Tamy kill - [place] deficit: pt 10:45: [id number] 00 Safety knowledge/s Safety Active 2020-0 Tamy kill - [place] deficit: cg 10:45: [id number] 00 Safety can be left Safety Active 2020-0 Tamy alone for 04-20 [place] only short 10:45: [id number] periods 00 Musculoskel transfer Musculoske Active 2020-0 Tamy etal assistance letal 04-20 [place] required 10:45: [id number] 00 Musculoskel requires Musculoske Active 2020-0 Tamy etal human letal 04-20 [place] assist to 10:45: [id number] leave home 00 Elimination knowledge/s Eliminatio Active 2020-0 Gopi kill n 3-11 [place] deficit: cg 11:50: [id number] 00 Bed mobility/tr PT/OT: Bed Active 2020-0 Gopi Mobility/Tr ansfer Mobility/T 3- [place] ansfer device ransfer 11:50: [id number] present 00 Bed transfer PT/OT: Bed Active 2020-0 Gopi Mobility/Tr deficit: Mobility/T 3-11 [place] ansfer shower/tub ransfer 11:50: [id number] 00 Bed transfer PT/OT: Bed Active 2020-0 Gopi Mobility/Tr deficit: Mobility/T 04-20 Cinthyaryan ansfer vehicle ransfer 11:50: [id number] 00 Balance/End balance/induction coordination power engineer PT/OT: Active Gopi urance rdination Balance/En 04-20 Rupallakiaryan deficit durance 11:50: [id number] 00 OT: Self self-care OT: Active Gopi Care deficit Self-Care 04-20 [place] 11:50: [id number] 00 Gait/Locomo gait PT/OT: Active Gopi tion assistive Gait/Locom 04-20 Hugoantoinecarly problems device otion 11:50: [id number] present 00 Gait/Locomo gait PT/OT: Active Gopi tion deficit Gait/Locom 04-20 [place] problems otion 11:50: [id number] 00 Allergies, Adverse Reactions, Alerts Allergy Allergy Type Status Severity Reaction(s) Onset Inactive Treating Comments Name Date Date Clinician Aricept Medication Active Unknown Dizzy 2019-04 Johana Name ID -10 Peyman [id number] Medications Ordered Filled Start Stop Current Ordering [...]
--- OUTSIDE RECORDS SUMMARY | 2019-04-27 13:10 | XMS REPORT ---
:1930 Author Organization [facility] Care Team Providers Name Role Phone Unavailable Unavailable Unavailable Problems Condition Condition Condition Status Onset Resolution Last Treating Comments Name Details Category Date Date Treatment Clinician Date Parkinson's Parkinson's Diagnosis Active 20200 Laquita disease disease 04-20 [place] Paroxysmal Paroxysmal Diagnosis Active 0 Laquita atrial atrial 04-20 [place] fibrillatio fibrillatio n n Major Major Diagnosis Active 0 Laquita depressive depressive 04-20 [place] disorder, disorder, recurrent, recurrent, unspecified unspecified History of History of Diagnosis Active Laquita falling falling 04-20 [place] Benign Benign Diagnosis Active Laquita prostatic prostatic 04-20 [place] hyperplasia hyperplasia without without lower lower urinary urinary tract tract symptoms symptoms Personal Personal Diagnosis Active 0 Laquita history of history of 04-20 [place] malignant malignant neoplasm of neoplasm of prostate prostate Pain frequent Pain Mgmt Active 2019-0 Tamy pain 04-20 [place] 10:45: [id number] Cardio knowledge/s Cardiovasc Active 2020-0 Tamy kill ular 04-20 [place] deficit: pt 10:45: [id number] 00 Cardio knowledge/s Cardiovasc Active 2019-0 Tamy kill ular 04-20 [place] deficit: cg 10:45: [id number] 00 Respiratory dyspnea Respirator Active 2020-0 Tamy present y 04-20 [place] 10:45: [id number] 00 Respiratory lung sounds Respirator Active 2020-0 Tamy deficit y 04-20 [place] 10:45: [id number] 00 Endo/Genaro anti-coagul Endo/Genaro Active 2020-0 Tamy ation 04-20 [place] therapy 10:45: [id number] 00 Sensory impaired Sensory Active 2020-0 Tamy hearing 04-20 [place] 10:45: [id number] 00 Nutrition nutritional Nutrition Active 2019-0 Tamy restriction 04-20 [place] s 10:45: [id number] 00 Elimination urinary Eliminatio Active 2020-0 Tamy incontinenc n - [place] e 10:45: [id number] 00 Neuro confusion Neuro/Emot Active 2020-0 Tamy present ion [address] [place] [address] 10:45: [id number] 00 Neuro depressive Neuro/Emot Active 2020-0 Tamy feelings ion [address] [place] [address] present 10:45: [id number] 00 Neuro impaired Neuro/Emot Active 2020-0 Tamy decision-ma ion 04-20 [place] michele 10:45: [id number] 00 Neuro memory Neuro/Emot Active 2020-0 Tamy deficit ion [address] [place] [address] needing 10:45: [id number] supervision 00 Neuro knowledge/s Neuro/Emot Active 2020-0 Tamy kill ion [address] [place] [address] deficit: pt 10:45: [id number] 00 Activity ADL Activity Active 2020-0 Tamy assistance 04-20 [place] required 10:45: [id number] 00 Activity self-care Activity Active 2020-0 Tamy deficit [address] [place] [address] 10:45: [id number] 00 Safety sanitation Safety Active 2020-0 Tamy hazards 04-20 [place] present 10:45: [id number] 00 Safety cannot be Safety Active 2020-0 Tamy left alone 04-20 [place] 10:45: [id number] 00 Safety fall risk Safety Active 2020-0 Tamy factor 04-20 [place] present 10:45: [id number] 00 Safety risk for Safety Active 2020-0 Tamy hospitaliza 04-20 [place] tion 10:45: [id number] 00 Safety knowledge/s Safety Active 2020-0 Tamy kill [address] [place] [address] deficit: pt 10:45: [id number] 00 Safety knowledge/s Safety Active 2020-0 Tamy kill 04-20 [place] deficit: cg 10:45: [id number] 00 Safety can be left Safety Active 2020-0 Tamy alone for 04-20 [place] only short 10:45: [id number] periods 00 Musculoskel transfer Musculoske Active 2020-0 Tamy etal assistance letal [address] [place] [address] required 10:45: [id number] 00 Musculoskel requires Musculoske Active 2020-0 Tamy etal human letal [address] [place] [address] assist to 10:45: [id number] leave home 00 Elimination knowledge/s Eliminatio Active 2020-0 Gopi kill n 04-20 Kobziewicz deficit: cg 11:50: [id number] 00 Bed mobility/tr PT/OT: Bed Active Gopi Mobility/Tr ansfer Mobility/T 04-20 Kobziewicz ansfer device ransfer 11:50: [id number] present 00 Bed transfer PT/OT: Bed Active Gopi Mobility/Tr deficit: Mobility/T 04-20 Kobziewicz ansfer shower/tub ransfer 11:50: [id number] 00 Bed transfer PT/OT: Bed Active Gopi Mobility/Tr deficit: Mobility/T 04-20 Kobziewicz ansfer vehicle ransfer 11:50: [id number] 00 Balance/End balance/watershed coordinator PT/OT: Active Gopi urance rdination Balance/En 04-20 Kobantoineewicz deficit durance 11:50: [id number] 00 OT: Self self-care OT: Active Gopi Care deficit Self-Care 04-20 Cinthyaicz 11:50: [id number] 00 Gait/Locomo gait PT/OT: Active Gopi tion assistive Gait/Locom 04-20 Kobziewicz problems device otion 11:50: [id number] present 00 Gait/Locomo gait PT/OT: Active Gopi tion deficit Gait/Locom 04-20 Kobziewicz problems otion 11:50: [id number] 00 Allergies, Adverse Reactions, Alerts Allergy Allergy Type Status Severity Reaction(s) Onset Inactive Treating Comments Name Date Date Clinician Aricept Medication Active Unknown Dizzy 2019-04 Johana Name ID -10 Peyman [id number] Medications Ordered Filled Start Stop Current Ordering [...]
--- OUTSIDE RECORDS SUMMARY | 2019-04-27 13:10 | XMS REPORT ---
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, disorder, recurrent, recurrent, unspecified unspecified History of History of Diagnosis Active Laquita falling falling 04-20 [place] Benign Benign Diagnosis Active Laquita prostatic prostatic 04-20 [place] hyperplasia hyperplasia without without lower lower urinary urinary tract tract symptoms symptoms Personal Personal Diagnosis Active 0 Laquita history of history of 04-20 [place] malignant malignant neoplasm of neoplasm of prostate prostate Pain frequent Pain Mgmt Active 2019-0 Tamy pain 04-20 [place] 10:45: [id number] 00 Cardio knowledge/s Cardiovasc Active 2020-0 Tamy kill ular 04-20 [place] deficit: pt 10:45: [id number] 00 Cardio knowledge/s Cardiovasc Active 2019-0 Tamy kill ular 04-20 [place] deficit: cg 10:45: [id number] 00 Respiratory dyspnea Respirator Active 2020-0 Tamy present y 04-20 [place] 10:45: [id number] 00 Respiratory lung sounds Respirator Active 2020-0 Tamy deficit y 04-20 [place] 10:45: [id number] 00 Endo/Genaro anti-coagul Endo/Genaro Active 2020-0 Taym ation 04-20 [place] therapy 10:45: [id number] 00 Sensory impaired Sensory Active 2020-0 Tamy hearing 04-20 [place] 10:45: [id number] 00 Nutrition nutritional Nutrition Active 2019-0 Tamy restriction 04-20 [place] s 10:45: [id number] 00 Elimination urinary Eliminatio Active 2020-0 Tamy incontinenc n - [place] e 10:45: [id number] 00 Neuro confusion Neuro/Emot Active 2020-0 Tamy present ion [address] [place] [address] 10:45: [id number] 00 Neuro depressive Neuro/Emot Active 2020-0 Tamy feelings ion [address] [place] [address] present 10:45: [id number] 00 Neuro impaired Neuro/Emot Active 2020-0 Tamy decision-ma ion 04-20 [place] michele 10:45: [id number] 00 Neuro memory Neuro/Emot Active 2020-0 Tamy deficit ion [address] [place] [address] needing 10:45: [id number] supervision 00 Neuro knowledge/s Neuro/Emot Active 2020-0 Tamy kill ion [address] [place] [address] deficit: pt 10:45: [id number] 00 Activity ADL Activity Active 2020-0 Tamy assistance 04-20 [place] required 10:45: [id number] 00 Activity self-care Activity Active 2020-0 Tamy deficit [address] [place] [address] 10:45: [id number] 00 Safety sanitation Safety Active 2020-0 Tamy hazards 04-20 [place] present 10:45: [id number] 00 Safety cannot be Safety Active 2020-0 Taym left alone 04-20 [place] 10:45: [id number] 00 Safety fall risk Safety Active 2020-0 Tamy factor 04-20 [place] present 10:45: [id number] 00 Safety risk for Safety Active 2020-0 Tamy hospitaliza 04-20 [place] tion 10:45: [id number] 00 Safety knowledge/s Safety Active 2020-0 Tamy kill [address] [place] [address] deficit: pt 10:45: [id number] 00 Safety knowledge/s Safety Active 2020-0 Tamy kill 04-20 [place] deficit: cg 10:45: [id number] 00 Safety can be left Safety Active 2020-0 Tamy alone for 04-20 [place] only short 10:45: [id number] periods 00 Musculoskel transfer Musculoske Active 2020-0 Tamy etal assistance letal [address] [place] [address] required 10:45: [id number] 00 Musculoskel requires Musculoske Active 2020-0 Tamy etal human letal [address] [place] [address] assist to 10:45: [id number] leave home 00 Elimination knowledge/s Eliminatio Active 2020-0 Gopi kill n 04-20 Kobziewicz deficit: cg 11:50: [id number] 00 Bed mobility/tr PT/OT: Bed Active Gopi Mobility/Tr ansfer Mobility/T 04-20 Kobziewicz ansfer device ransfer 11:50: [id number] present 00 Bed transfer PT/OT: Bed Active Gopi Mobility/Tr deficit: Mobility/T 04-20 Kobziewicz ansfer shower/tub ransfer 11:50: [id number] 00 Bed transfer PT/OT: Bed Active Gopi Mobility/Tr deficit: Mobility/T 04-20 Kobziewicz ansfer vehicle ransfer 11:50: [id number] 00 Balance/End balance/branch coordinator PT/OT: Active Gopi urance rdination Balance/En 04-20 Kobantoineewicz deficit durance 11:50: [id number] 00 OT: Self self-care OT: Active Gopi Care deficit Self-Care 04-20 Cinthyaicz 11:50: [id number] 00 Gait/Locomo gait PT/OT: Active Gopi tion assistive Gait/Locom 04-20 Kobziewicz problems device otion 11:50: [id number] present 00 Gait/Locomo gait PT/OT: Active Gopi tion deficit Gait/Locom 04-20 Kobziewicz problems otion 11:50: [id number] 00 Allergies, Adverse Reactions, Alerts Allergy Allergy Type Status Severity Reaction(s) Onset Inactive Treating Comments Name Date Date Clinician Aricept Medication Active Unknown Dizzy 2019-04 Johana Name ID -10 Peyman [id number] Medications Ordered Filled Start Stop Current Ordering [...]
--- OUTSIDE RECORDS SUMMARY | 2019-04-27 13:11 | XMS REPORT ---
:1930 Author Organization [facility] Care Team Providers Name Role Phone Unavailable Unavailable Unavailable Problems Condition Condition Condition Status Onset Resolution Last Treating Comments Name Details Category Date Date Treatment Clinician Date Parkinson's Parkinson's Diagnosis Active Laquita disease disease 3-10 Ortiz Allergies, Adverse Reactions, Alerts Allergy Allergy Type Status Severity Reaction(s) Onset Inactive Treating Comments Name Date Date Clinician Aricept Medication Active Unknown Dizzy 2019-04 Johana Name ID -10 Peyman [id number] Medications Ordered Filled Start Stop Current Ordering Indication Dosage Frequency Signature Comments Components Medication Medication Date Date Medication? Clinician (SIG) Name Name No Known No Known No None None None Medications Medications For This For This Patient Patient Procedures This patient has no known procedures. Results This patient has no known results.
[2019-04-27] MEDS ORDERED: Morphine 4 MG/ML VIAL (1 ml) 4 MG/ML VIAL IV ONE (13:40)
[2019-04-27] MEDS ORDERED: Magnesium Hydroxide LIQ* 30 ML UDC PO PRN (14:29)
[2019-04-27] MEDS ORDERED: Polyethylene Glycol 3350* 17 GM PACKET PO PRN (14:29)
[2019-04-27] MEDS ORDERED: Docusate CAP* 100 MG PO PRN (14:29)
[2019-04-27] MEDS ORDERED: Senna TAB 8.6 mg* TAB PO PRN (14:29)
--- NOTE | 2019-04-27 15:31 | CONS ---
CONSULTATION REPORT: DATE OF CONSULT: 04/27/19 ATTENDING ORTHOPEDIC PROVIDER: Dr. Philip Chanel. PRIMARY CARE PROVIDER: Dr. Kauffman. NEUROLOGIST: Dr. Lemos. Management of prostate cancer, Dr. Calixto and Dr. Acevedo. CHIEF COMPLAINT: Left hip fracture. HISTORY OF PRESENT ILLNESS: The patient is an 89-year-old male with a past medical history of atrial fibrillation, prostate cancer with bone mets, Parkinson's, dementia, who presented to [facility] on 04/27/19 with a chief complaint of fall and left hip pain. He fell today while walking to the bathroom while using his walker, mechanism of fall is unclear. He has had several falls this month with the drastic increase in falls over the past several months, though he has suffered no fractures previously. Today he reports severe pain of the left hip without radiation, no pain of other extremities. Pain is relieved with rest aggravated by movement. He did not hit his head. He did not lose consciousness. He did not have chest pain, shortness of breath, dizziness associated with the fall. He has had surgery in the past without adverse reactions from anesthesia. No history of heart attack, stroke, or blood clot. He is on Eliquis 2.5 mg b.i.d. for atrial fibrillation, his last dose was this morning. PAST MEDICAL HISTORY: Atrial fibrillation, dementia, Parkinson's, prostate cancer first diagnosed 8 years ago, untreated until March 2019 when it was discovered that he had metastasis into his bones. PAST SURGICAL HISTORY: Appendectomy. FAMILY HISTORY: Daughter with breast cancer. There is no known family history of adverse reactions from anesthesia. SOCIAL HISTORY: The patient is retired, formerly worked at a [employer] store. He resides at [facility] in the independent living section with his , Dalia Cortes, phone number [phone]. He has 2 children. He does not smoke, nor drink alcohol. He is retired. He uses a walker to ambulate. REVIEW OF SYSTEMS: General: No recent illness. No fever or chills. HEENT: No headache. No visual changes. Cardiac: No chest pain. The patient is unaware when he goes in and out of atrial fibrillation. Respiratory: No shortness of breath or cough. GI: No abdominal pain, nausea, vomiting, or diarrhea. : No dysuria. The patient does have prostate cancer, sees Dr. Calixto as well as Dr. Acevedo for this. Musculoskeletal: Positive for left hip pain. No other extremity pain. Neuro: Dementia and Parkinson's. No numbness or tingling of extremities. Hematology: No history of blood clot. PHYSICAL EXAM: Vital Signs: Temperature 96.3, pulse rate 77, respiratory rate 18, oxygen saturation 95% on room air, blood pressure 123/78. General: Well appearing, in no acute distress. HEENT: Head is normocephalic. He has bruising of differing stages of the right periorbital region and of the left ear from prior falls, remains tender over the left mastoid without Sims sign. No rhinorrhea. Neck: Nontender cervical spine. Cardiac: S1, S2. Regular rhythm. Lungs: Clear to auscultation bilaterally. Abdomen: Nondistended, nontender. Musculoskeletal: Bilateral upper extremities and right lower extremity: Skin envelope intact with small abrasion over right knee. He has no tenderness to palpation throughout these extremities. Able to flex and extend all joints without any pain. Left lower extremity is externally rotated and shortened. + pain with log roll and heel strike. Tenderness over the hip. Also, tender over the left lateral knee. Able to flex and extend at the ankle and MTPs. Neuro: Sensation is intact to light touch distally throughout bilateral upper and lower extremities. Vascular: DP 2+ bilateral lower extremities. DIAGNOSTIC STUDIES/LAB DATA: Left hip and pelvis: Angulated intertrochanteric fracture of the left femur. Cervical spine CT: New C7 lytic lesion. He has multilevel spondylosis and stenosis. Brain CT: No acute intracranial pathology. No bone or soft tissue abnormalities noted. ASSESSMENT: Left intertrochanteric fracture. PLAN/RECOMMENDATIONS: The patient will be on bedrest. He will be nonweightbearing on the left lower extremity. He can receive chemical DVT prophylaxis up until midnight on Friday. Use SCDs. He should be n.p.o. at midnight Friday night. Surgery is planned for pending medical optimization. In the interim will get a CT scan of the left hip to eval for pathologic fracture in light of known bone mets. Will xray L knee. Surgeon will be Dr. Philip Chanel. The patient will require a gamma nail fixation. JAVAD WEST, MICHELLE [id number]/[facility] [place]: [id number] [facility]IAL HOSPITALNiki
[2019-04-27] MEDS: oxyCODONE/Acetamin 5/325 MG* TAB PO PRN ×2 (15:47→21:00)
[2019-04-27] MEDS ORDERED: Iohexol 300* (CONTRAST) 10 ML SDV IV ONE (15:48)
--- NOTE | 2019-04-27 15:49 | PN ---
Progress Note - Progress Note Date of Service: 04/27/19 Note: I saw and examined Mr. Cortes. Please see Allyson Rodrigues's consult note for full details. Mr. Cortes sustained a fall with a left hip intertrochanteric fracture. The extremity is shortened and externally rotated. Palpable pulses and neurovascularly intact in the foot. Pain with logrolling and heel strike. I reviewed his x-rays, which do show a displaced intertrochanteric fracture. Labs reviewed. I did discuss with him and his the diagnosis and treatment options. My recommendation is surgical intervention with a cephalomedullary nail. He is on eliquis, so we will give this 48 hours and plan on moving forward with surgery on if medically cleared. We did discuss the risks of surgery. We reviewed recovery. All of their questions were answered. Philip Chanel MD
--- NOTE | 2019-04-27 16:21 | HP ---
CC: Dr. Thelma Kauffman; Dr. Ed Calixto; Dr. Acevedo; Dr. Ulices Chavarria; Dr. Lemos* HISTORY AND PHYSICAL: DATE OF ADMISSION: 04/27/19 PRIMARY CARE PROVIDER: Dr. hTelma Kauffman. OTHER PROVIDERS: Dr. Ed Calixto, Dr. Acevedo, Dr. Lemos. ATTENDING PHYSICIAN: Dr. Ulices Chavarria* (dictated by MICHELLE Leblanc ). CHIEF COMPLAINT: 1. Fall. 2. Left hip pain. HISTORY OF PRESENT ILLNESS: Mr. Cortes is an 89-year-old male with a past medical history of paroxysmal atrial fibrillation, on anticoagulation; metastatic prostate cancer, on Xtandi, who presented to the ER today status post fall with left hip pain. He is seen with his at the bedside who relays some of the information as he is mildly confused at times. The patient states he was walking from his bathroom and fell on the left thigh. The patient 's , Dalia, states that he walks with a walker most times and that he was using a walker at this time, although the patient is unsure if he had a walker or not. Regardless, the patient fell, landed on the left thigh and suddenly experienced pain. He had decreased range of motion, was unable to get up and ambulate. Ambulance was called and the patient was brought to the ER. The patient reports increasing pain in the legs due to increase in lower extremity edema over the last "couple of months." Again, he follows with Dr. Calixto for prostate cancer and was placed on Xtandi in March. In the ER, the patient received a full workup. He had a mild leukocytosis, mild anemia (chronic). His chemistry was unremarkable except for an elevated alk phos, which also appears to be chronic. Brain CT was unremarkable. CT of the cervical spine shows new C7 lytic lesion. X-ray of the pelvis and left hip revealed a left femoral fracture. In the ER, the patient received 2 mg IV morphine. The hospitalist team was asked to evaluate the patient for admission. PAST MEDICAL HISTORY: 1. Atrial fibrillation, on anticoagulation. 2. Gout. 3. BPH. 4. Obstructive sleep apnea, not on CPAP. 5. Depression. 6. Parkinson's disease/parkinsonism, follows with Dr. Lemos. PAST SURGICAL HISTORY: Appendectomy, tonsillectomy. HOME MEDICATIONS: 1. Allopurinol 200 mg p.o. daily. 2. Apixaban 2.5 mg p.o. b.i.d. 3. Carbidopa/levodopa 25/100 one tab p.o. t.i.d. 4. Cholecalciferol 1000 units p.o. daily. 5. Finasteride 5 mg p.o. daily. 6. Furosemide 20 mg p.o. daily. 7. Lactobacillus acidophilus 1 tab p.o. daily. 8. Sertraline 50 mg p.o. daily. 9. Xtandi 160 mg p.o. daily. DRUG ALLERGIES: DONEPEZIL, dizziness. FAMILY HISTORY: Mother of an VT. The patient has 1 daughter with breast cancer. No family history of CVA or diabetes. SOCIAL HISTORY: The patient denies current or former use of tobacco. He does not use alcohol. He used to work at [employer]. He is , with 2 children. He lives with his at [place]. In the event that he is unable to make his own medical decisions, he has appointed his , Dalia Cortes, to be his surrogate decision maker. REVIEW OF SYSTEMS: A 14-point review of systems has been performed and all the pertinent positives and negatives are in the HPI. All other systems are negative. PHYSICAL EXAMINATION GENERAL: Mr. Cortes is a well-developed, well-nourished, overweight, elderly white male, who is sitting up in bed. He is confused at times, but appropriate and pleasant. He appears to be in no acute distress. HEENT: Normocephalic, atraumatic. PERRL. Extraocular movements are intact. Hearing is grossly intact. There is an old bruise to the left ear as well as an old bruise to the anterior right face. Oral mucous membranes are moist. There are no lesions. The pharynx is clear. Tongue is at midline. Palate elevates symmetrically. PULMONARY: Symmetrical chest expansion without use of accessory muscles. Clear to auscultation bilaterally anteriorly without rhonchi, wheeze, or rales. CARDIOVASCULAR: Regular rate and rhythm with S1, S2 present. No murmurs, rubs , clicks, or gallops. There is no JVD. There is bilateral lower extremity 2+ pitting edema pretibial. ABDOMEN: Bowel sounds in all quadrants. Soft, nontender to palpation. MUSCULOSKELETAL: Bilateral upper extremities, right lower extremity with full range of motion. Joints nontender to palpation. The left lower extremity is shortened and externally rotated. There is some mild swelling at the left knee. No attempts at moving the left lower extremity were made. NEURO: The patient is awake. He is alert and oriented x3 with cranial nerves II through XII grossly intact. DIAGNOSTIC STUDIES/LAB DATA: 1. CBC: WBC 12.4, hemoglobin 11.8, hematocrit 36, MCV 84, platelets 191. 2. CMP: Sodium 136, potassium 4.1, chloride 101, carbon dioxide 26, BUN 33, creatinine 0.96, glucose 130. AST 33, ALT 4, alk phos 162. 3. Brain CT, impression: No acute intracranial pathology. Diffuse involutional change. 4. CT cervical spine, impression: A new C7 lytic lesion, should be further evaluated by cervical spine MRI with contrast. No cervical spine fracture or traumatic malalignment. Varying degrees of multilevel spondylosis results in at least mild spinal canal stenosis at C4-C5 and C5-C6, moderate multilevel neural foraminal stenosis. 5. Pelvis/left hip, impression: Angulated intertrochanteric fracture of the left femur. ASSESSMENT AND PLAN: Mr. Cortes is an 89-year-old male with past medical history of paroxysmal atrial fibrillation, on anticoagulation; prostate cancer, who presented to the ER today with complaints of left hip pain status post fall and was found to have a left intertrochanteric femur fracture. The patient will be admitted for: 1. Left intertrochanteric femur fracture. The patient reports that he was walking, fell and experienced sudden pain. He arrived at the ER. A left hip x- ray was performed and shows left femur fracture. Incidentally, the patient also has a C7 lytic lesion. There is some concern that the patient may have sustained a pathologic fracture of the left hip. Orthopedics has been consulted and Dr. Chanel will see the patient. The plan is for surgical intervention on after a washout period for his apixaban. In the meantime, the patient will continue a heart-healthy diet and will be n.p.o. after midnight the night prior to planned surgery. We will continue pain management and bowel regimen in the interim. The patient needs further workup to determine his RCRI score. EKG and chest x-ray have both been ordered as has echocardiogram as there is no recent echo on file and the patient has had bilateral lower extremity edema. Once these results are in, we will be able to better determine his risk for surgery. 2. Bilateral lower extremity edema. The patient reports bilateral lower extremity edema for the past couple months. There is low suspicion for deep venous thrombosis as this is bilateral and he is on apixaban, although he is on half strength of apixaban. Higher up on differential list is heart failure exacerbation versus lymph node obstruction. An echocardiogram and pelvic CT will be obtained to further evaluate. In the meantime, the patient will continue furosemide. 3. Prostate cancer. The patient has a history of prostate cancer. He has a new C7 lytic lesion and a new left hip fracture. There is some concern that this may be a pathological hip fracture. Dr. Calixto's office was consulted and discussion was had with Shelli Santos NP. The patient will be seen in consultation by Hematology/Oncology tomorrow. The patient should continue his home Xtandi until consultation with Oncology. 4. Atrial fibrillation. The patient is currently in sinus rhythm. He is rate controlled at this time. He typically takes apixaban anticoagulation, although this will be held at this time in the setting of plan for surgical intervention. 5. Gout. Continue allopurinol. 6. Benign prostatic hyperplasia. Continue finasteride. 7. Depression. Continue sertraline. 8. Parkinson's disease/parkinsonism. The patient follows with Dr. Lemos. Unsure if he has been diagnosed with Parkinson's disease, but he is on carbidopa /levodopa. We will continue this medication at this time. 9. DVT prophylaxis: According to DVT Risk Assessment, the patient scores 4, placing him at high risk. His apixaban has been held in the setting of plans for surgical intervention. In the meantime, the patient will be placed on Lovenox starting tonight (last dose of apixaban was evening dose on 04/26/19). He will receive 1 dose of Lovenox and then it will be discontinued. 10. Code status: DNR. Discussed with the patient and his . TIME SPENT: Approximately 60 minutes was spent on this admission, greater than half that time was spent [id number] with the patient and his obtaining history, performing physical, and reviewing the plan of care. The case has been discussed with my attending, Dr. Chavarria, who is in agreement with the plan of care. MICHELLE PARR [id number]/[facility] #: [id number] GERALDO
--- NOTE | 2019-04-27 17:02 | ECHO ---
*[facility]* [place] [address] Fax #: [phone] Transthoracic Echocardiogram Patient: Nasim Cortes : 1930 Study Date: 04/27/2019 Age: 89 Gender: M HR: 70 bpm Height: 69 in /175.3 cm BSA: 2.07 m^2 Weight: 199.6 lb /90.7 kg BMI: 29.5 kg/m^2 *Assembler Tester: * Mala Sanchez RD *Referring Physician: * Trista Gleason *Reading Physician: * Pedro Graham MD Indications: Edema. History: Atrial fibrillation. The patient has a prostate malignancy. Functional status: Not following treatment plan for sleep apnea. Conclusions Summary: - Left ventricle: Systolic function is normal. The estimated ejection fraction is 55-60%. Wall motion is normal; there are no regional wall motion abnormalities. - Right ventricle: Systolic function is normal. Systolic pressure is at the upper limits of normal. - Aortic valve: There is trace regurgitation. - Tricuspid valve: There is no evidence of stenosis. There is mild regurgitation. - Pulmonary arteries: Systolic pressure is at the upper limits of normal. Pulmonary artery pressure may be underestimated - Study data: No prior study is available for comparison. Study data: Transthoracic echocardiogram. Procedure: Transthoracic echocardiography was performed. Image quality was fair. The study was technically limited due to restricted patient mobility. Complete 2D, spectral Doppler, and color flow Doppler. Location: Bedside. Patient status: Inpatient. Patient room number: 337. No prior study is available for comparison. Rhythm: Normal sinus rhythm with PAC's. Findings Left ventricle: The cavity size is at the lower limits of normal. Wall thickness is mildly increased. Systolic function is normal. The estimated ejection fraction is 55-60%. Wall motion is normal; there are no regional wall motion abnormalities. Doppler parameters are consistent with abnormal left ventricular relaxation (grade 1 diastolic dysfunction). Right ventricle: The cavity size is moderately dilated. Systolic function is normal. Systolic pressure is at the upper limits of normal. Left atrium: The atrium is moderately dilated. Right atrium: The atrium is moderately dilated. Mitral valve: The leaflets are mildly thickened. There is no evidence of stenosis. There is mild to moderate regurgitation. Aortic valve: The valve is trileaflet. The leaflets are mildly thickened. There is no evidence of stenosis. There is trace regurgitation. Tricuspid valve: The leaflets are normal thickness. There is no evidence of stenosis. There is mild regurgitation. Pulmonic valve: The leaflets are normal thickness. There is no evidence of stenosis. There is trace regurgitation. Aorta: Aortic root: The aortic root is mildly dilated. Ascending aorta: The ascending aorta is mildly dilated. Aortic arch: The aortic arch is appears normal. Pericardium: A prominent pericardial fat pad is present. There is no significant pericardial effusion. Pulmonary arteries: The main pulmonary artery is normal-sized. Systolic pressure is at the upper limits of normal. Pulmonary artery pressure may be underestimated Systemic veins: Inferior vena cava: Not well visualized. Measurements Left ventricle Value Ref Aortic valve Value Ref TRA, LAX (L) 3.9 cm 4.2 - 5.8 Hyacinth diam, ED 2.3 cm ----- ESD, LAX 2.7 cm 2.5 - 4.0 Peak v, S 1.56 m/sec ----- FS, LAX 30 % 25 - 43 VTI, S 29.7 cm ----- PW, ED, LAX (H) 1.2 cm 0.6 - 1.0 Mean grad, S 4.0 mm Hg ----- FS 30 % 25 - 43 Peak grad, S 10.0 mm Hg ----- Mid-wall FS 10 % LVOT/AV, VTI ratio 0.71 ----- PW, ED (H) 1.2 cm 0.6 - 1.0 SHERINE, VTI 2.22 cm^2 ----- E', lat hycainth, TDI (L) 8.2 cm/sec >=10.0 SHERINE, Vmax 1.99 cm^2 --- -- E/e', lat hyacinth, 7 TDI Mitral valve Value Ref E', med hyacinth, TDI (L) 5.8 cm/sec >=7.0 Peak E 0.6 m/sec --- -- E/e', med hyacinth, 10 Peak A 1.02 m/sec ----- TDI Decel time 465 ms ----- E', avg, TDI 7.0 cm/sec Peak E/A ratio 0.6 ----- E/e', avg, TDI 9 <=14 Pulmonic valve Value Ref LVOT Value Ref Peak v, S 0.93 m/sec ----- Diam, S 2.00 cm Peak grad, S 3.0 mm Hg ----- Area 3.1 cm^2 Peak michell, S 0.99 m/sec Tricuspid valve Value Ref VTI, S 21.0 cm TR peak v 2.6 m/sec <=2.8 Mean grad, S 2 mm Hg Peak RV-RA grad, S 27 mm Hg ----- SV 66 ml SV/bsa 32 ml/m^2 Aortic root Value Ref Root diam 4.0 cm <4.2 Ventricular septum Value Ref IVS, ED (H) 1.3 cm 0.6 - 1.0 Ascending aorta Value Ref AAo AP diam, S 4.0 cm ----- Right ventricle Value Ref TRA, LAX 3.9 cm Aortic arch Value Ref TRA minor ax, A4C (H) 4.6 cm 1.9 - 3.5 Arch diam 2.7 cm ----- mid Pressure, S 35 mm Hg Decending aorta Value Ref Dominguez peak michell 0.77 m/sec ----- Left atrium Value Ref AP dim, ES (H) 4.10 cm 3.00 - Pulmonary artery Value Ref 4.00 Pressure, S 32.0 mm Hg ----- ML dim, A4C 4.3 cm SI dim, A4C 6.5 cm Vol/bsa, ES, 1-p 28 ml/m^2 12 - 37 A4C Vol/bsa, ES, A/L (H) 45 ml/m^2 16 - 34 Right atrium Value Ref SI dim, ES (H) 5.7 cm 3.4 - 5.3 ML dim, ES, A4C (H) 5.2 cm 2.6 - 4.4 Estimated RAP 8 mm Hg Legend: (L) and (H) edvin values outside specified reference range. Prepared and electronically signed by Pedro Graham MD 04/27/2019 17:01
[2019-04-27] MEDS: Carbidopa/Levodop 25/100 MG TAB(*) PO SCH (18:26)
[2019-04-27 18:57] LABS: Urine Appearance Clear; Urine Bilirubin Negative (Negative); Urine Blood 2+ (Negative); Urine Color Yellow; Urine Glucose Negative (Negative); Urine Ketones Trace (Negative); Urine Nitrite Negative (Negative); Urine Protein Negative (Negative); Urine Specific Gravity 1.026 (1.010-1.030); Urine Urobilinogen Negative (Negative)
[2019-04-27 18:59] LABS: Urine Bacteria Absent (Absent); Urine Red Blood Cell 2+(6-10/hpf) (Absent); Urine White Blood Cell Trace(0-5/hpf) (Absent)
[2019-04-27] MEDS: Morphine INJ* 4 MG/ML 1 ML SYRINGE (NEW SYRINGE VERSION) IV PRN (19:46)
[2019-04-27] MEDS ORDERED: Enoxaparin(*) 40 MG/0.4 ML SYR SUBCUT SCH (21:00)
[2019-04-27] MEDS ORDERED: ENZALUTAMIDE 40 MG PO SCH (21:00)
[2019-04-28] MEDS: Morphine INJ* 4 MG/ML 1 ML SYRINGE (NEW SYRINGE VERSION) IV PRN (01:32)
[2019-04-28 04:30] LABS: ABS Lymphocytes 0.6 10^3/ul (1.0-4.8); ABS Monocytes 0.9 10^3/ul (0-0.8); ABS Neutrophils 7.8 10^3/ul (1.5-7.7); Eosinophil % 0.2 %; Hematocrit 32 % (42-52); Hemoglobin 10.7 g/dL (14.0-18.0); Lymphocyte % 6.3 %; Mean Corpuscular HGB Conc 33 g/dL (31-36); Mean Corpuscular Hemoglobin 28 pg (27-31); Mean Corpuscular Volume 84 fL (80-94); Mean Platelet Volume 8.5 fL (7.4-10.4); Platelet Count 162 10^3/uL (150-450); Red Blood Count 3.83 10^6 /uL (4.18-5.48); Red Cell Distribution Width 16 % (10-15); White Blood Count 9.3 10^3/uL (3.5-10.8)
[2019-04-28 04:54] LABS: Calcium 9.1 mg/dL (8.6-10.3); EGFR African American 85.1 (>60); EGFR Non-African American 70.4 (>60)
[2019-04-28] MEDS: Allopurinol TAB* 100 MG PO SCH (08:37)
[2019-04-28] MEDS: Lactobacillus Acidophilus* 1 TAB PO SCH (08:37)
[2019-04-28] MEDS: Finasteride TAB* 5 MG PO SCH (08:38)
[2019-04-28] MEDS: Cholecalciferol TAB* 1000 UNITS PO SCH (08:38)
[2019-04-28] MEDS: Carbidopa/Levodop 25/100 MG TAB(*) PO SCH ×3 (08:38→18:09)
[2019-04-28] MEDS: Sertraline* 50 MG TAB PO SCH (08:38)
[2019-04-28] MEDS: Furosemide TAB* 20 MG PO SCH (08:38)
--- NOTE | 2019-04-28 11:25 | CONSULT ---
Consultation - Reason for Consultation Reason for Consultation: Left intertrochanteric femur fracture- questionable pathologic fracture. Ordering Provider: Trista Gleason Chief Complaint: Left intertrochanteric femur fracture s/p fall on 04/27/2019. Questionable pathologic fracture in patient with known metastatic prostate cancer. History of Present Illness: Paroxysmal atrial fibrillation- on Eliquis, but this has been held since admission in preparation of surgical repair of acute left intertrochanteric femur fracure. Metastatic Prostate Cancer- on Enzalutamide (Xtandi) since February 2019. Fall with left hip pain- Reportedly fell while using a walker on 04/27/2019, landed on left thigh and experienced pain and difficulty ambulating. Ambulance was called and he was [place] [facility] X-ray revealed left intertrochanteric femur fracture. Allergies/Medications Medication: Acetaminophen (Tylenol Tab*) 650 mg PO Q6H PRN PRN Reason: PAIN - MILD Allopurinol (Zyloprim Tab*) 200 mg PO DAILY [facility] Last Admin: 04/28/19 08:37 Dose: 200 mg Carbidopa/Levodopa (Sinemet 25/100 Tab(*)) 1 tab PO TID PC [facility] Last Admin: 04/28/19 08:38 Dose: 1 tab Cholecalciferol (Vitamin D Tab*) 1,000 units PO DAILY [facility] Last Admin: 04/28/19 08:38 Dose: 1,000 units Docusate Sodium (Colace Cap*) 100 mg PO BID PRN PRN Reason: CONSTIPATION Finasteride (Proscar Tab*) 5 mg PO DAILY [facility] Last Admin: 04/28/19 08:38 Dose: 5 mg Furosemide (Lasix Tab*) 20 mg PO DAILY [facility] Last Admin: 04/28/19 08:38 Dose: 20 mg Lactobacillus Rhamnosus (Lactobacillus Acidophilus*) 1 tab PO DAILY [facility] Last Admin: 04/28/19 08:37 Dose: 1 tab Magnesium Hydroxide (Milk Of Magnesia Liq*) 30 ml PO BID PRN PRN Reason: CONSTIPATION Morphine Sulfate (Morphine Inj (Syringe)*) 4 mg IV Q4H PRN PRN Reason: PAIN - SEVERE Last Admin: 04/28/19 01:32 Dose: 4 mg Oxycodone/Acetaminophen (Percocet 5/325 Tab*) 1 tab PO Q4H PRN PRN Reason: mild to moderate pain Last Admin: 04/27/19 21:00 Dose: 1 tab Polyethylene Glycol/Electrolytes (Miralax (17 Gm Dose Mannie)) 17 gm PO DAILY PRN PRN Reason: CONSTIPATION Senna (Senokot 8.6 Mg Tab*) 1 tab PO BEDTIME PRN PRN Reason: CONSTIPATION Sertraline HCl (Zoloft*) 50 mg PO DAILY [facility] Last Admin: 04/28/19 08:38 Dose: 50 mg Allergies/Adverse Reactions: Allergies Allergy/AdvReac Type Severity Reaction Status Date / Time donepezil [From Aricept] AdvReac Mild Dizziness Verified 03/29/19 13:12 History - Past Medical History Hx Arthritis: No Hx Cancer: Yes Hx Cardiac Disorders: Yes - atrial fibrillation Other History: Dementia. Parkinson's Disease - Family History Hx Family Cancer: No Hx Family Cerebrovascular Accident: No Review of Systems - Review of Systems Dermatology: Positive: Normal HEENT: Positive: Normal Eyes: Positive: Normal Pulmonary: Positive: Normal Cardiology: Positive: Palpitations - atrial fibrillation, Swelling of Ankles - chronic Gastroenterology: Positive: Normal Genitourinary - Male: Other - prostate cancer Hematologic/Lymphatic: Positive: Use of Anticoagulant Neurology: Positive: Other - dementia, parkinson's Physical Exam - Physical Exam Physical Examination: Patient examined at bedside, was not present at the time of this consultation. General: in no acute distress. Head: normocephalic/atraumatic Cardiac: heart rate irregular (atrial fibrillation) Resp: lungs are CTA, unlabored. Extremities: lower leg edema, pedal pulses palpable and equal bilaterally. left leg is externally rotated. Neuro: oriented to place and year, confused at times. Results - Lab Results Lab Results: 04/27/19 04/27/19 04/27/19 12:26 12:26 12:26 WBC 12.4 H RBC 4.27 Hgb 11.8 L Hct 36 L MCV 84 MCH 28 MCHC 33 RDW 16 H Plt Count 191 MPV 8.3 Neut % (Auto) 90.6 Lymph % (Auto) 2.2 [place] % (Auto) 6.9 Eos % (Auto) 0.0 Baso % (Auto) 0.3 Absolute Neuts (auto) 11.2 H Absolute Lymphs (auto) 0.3 L Absolute Monos (auto) 0.9 H Absolute Eos (auto) 0.0 Absolute Basos (auto) 0.0 Absolute Nucleated RBC 0.0 Nucleated RBC % 0.0 INR (Anticoag Therapy) 1.29 H Sodium 136 Potassium 4.1 Chloride 101 Carbon Dioxide 26 Anion Gap 9 BUN 33 H Creatinine 0.96 Est GFR ( Amer) 89.2 Est GFR (Non-Af Amer) 73.8 BUN/Creatinine Ratio 34.4 H Glucose 130 H Calcium 9.2 Total Bilirubin 0.50 AST 33 ALT 4 L Alkaline Phosphatase 162 H Total Protein 6.7 Albumin 4.0 Globulin 2.7 Albumin/Globulin Ratio 1.5 Urine Color Urine Appearance Urine pH Ur Specific [place] Urine Protein Urine Ketones Urine Blood Urine Nitrate Urine Bilirubin Urine Urobilinogen Ur Leukocyte Esterase Urine WBC (Auto) Urine RBC (Auto) Urine Bacteria Urine Glucose 04/27/19 04/28/19 04/28/19 18:35 04:10 04:10 WBC 9.3 RBC 3.83 L Hgb 10.7 L Hct 32 L MCV 84 MCH 28 MCHC 33 RDW 16 H Plt Count 162 MPV 8.5 Neut % (Auto) 83.4 Lymph % (Auto) 6.3 [place] % (Auto) 9.9 Eos % (Auto) 0.2 Baso % (Auto) 0.2 Absolute Neuts (auto) 7.8 H Absolute Lymphs (auto) 0.6 L Absolute Monos (auto) 0.9 H Absolute Eos (auto) 0.0 Absolute Basos (auto) 0.0 Absolute Nucleated RBC 0.0 Nucleated RBC % 0.0 INR (Anticoag Therapy) Sodium 137 Potassium 4.0 Chloride 103 Carbon Dioxide 28 Anion Gap 6 BUN 30 H Creatinine 1.00 Est GFR ( Amer) 85.1 Est GFR (Non-Af Amer) 70.4 BUN/Creatinine Ratio 30.0 H Glucose 127 H Calcium 9.1 Total Bilirubin AST ALT Alkaline Phosphatase Total Protein Albumin Globulin Albumin/Globulin Ratio Urine Color Yellow Urine Appearance Clear Urine pH 5.0 Ur Specific [place] 1.026 Urine Protein Negative Urine Ketones Trace A Urine Blood 2+ A Urine Nitrate Negative Urine Bilirubin Negative Urine Urobilinogen Negative Ur Leukocyte Esterase Negative Urine WBC (Auto) Trace(0-5/hpf) Urine RBC (Auto) 2+(6-10/hpf) A Urine Bacteria Absent Urine Glucose Negative Assessment and Plan Impression: This is an 89 year old male known to hematology/oncology with past medical history of atrial fibrillation on Eliquis 2.5mg twice daily and metastatic prostate cancer on enzalutamide. He was brought in via ambulance s/p fall onto left leg on 04/27/19. Imaging performed in ED at time of evaluation reviewed and revealed left intertrochanteric femur fracture. Reviewed prior imaging including bilateral hip xray from December 2018. At that time there was no evidence of metastatic disease in left femur. While Mr. Cortes is at increased risk of fracture with known metastatic prostate cancer with lytic lesions, it appears this is not a pathologic fracture and I would not favor radiation therapy post-operatively. Plan: 1. Left intertrochanteric femur fracture -plan for surgical repair once off anticoagulation x 48 hours. -Resume Eliquis BLESSING post-operatively as recommended by surgeon. 2. Metastatic Prostate Cancer - hold Enzalutamide (xtandi). Per [employer] package insert this medication can cause neutropenia in up to 20% of patients. Given increased risk of infection following surgical repair of his femur fracture, will hold medication and reassess as outpatient. 3. Atrial Fibrillation - Resume anticoagulation BLESSING post-operatively as per surgeon.
--- NOTE | 2019-04-28 11:53 | PN ---
Progress Note - Progress Note Date of Service: 04/28/19 SOAP: Subjective: []Pt seen and examined at bedside. He feels well without CP, SOB, dizziness or nausea. Denies LLE pain at this time. L knee xray without obvious fracture Objective: []Gen: NAD, appears comfortable LLE: shortened and externally rotated, hip tender to palpation, df/pf and mtp f/ e intact. 5th toe ecchymotic and painful. Calves supple and nontender Assessment: []L IT fracture Plan: []NWB, bedrest NPO at midnight for OR tomorrow w Dr. Kwong, gamma nail. Home Eliquis is held xray L 5th toe ordered Appreciate Onc input, do not rec radiation post op as this does not appear to be a pathologic fracture Would rec no fierro as patient is pulling his condom cath off, concern he will pull indwelling catheter out as well. Medical optimization pending Vital Signs Temp 97.8 F 04/28/19 11:23 Pulse 85 04/28/19 11:23 Resp 16 04/28/19 12:10 BP 99/55 04/28/19 11:23 Pulse Ox 96 04/28/19 11:23 Intake & Output 04/27/19 04/28/19 04/28/19 18:59 06:59 18:59 Intake Total 360 600 Output Total 500 Balance 360 100 Weight 199 lb 8.293 oz Intake: Oral 360 600 Output: Urine 500 Other: # Bowel Movements 0 Laboratory Last Values WBC 9.3 10^3/uL (3.5-10.8) 04/28/19 04:10 RBC 3.83 10^6 /uL (4.18-5.48) L 04/28/19 04:10 Hgb 10.7 g/dL (14.0-18.0) L 04/28/19 04:10 Hct 32 % (42-52) L 04/28/19 04:10 MCV 84 fL (80-94) 04/28/19 04:10 MCH 28 pg (27-31) 04/28/19 04:10 MCHC 33 g/dL (31-36) 04/28/19 04:10 RDW 16 % (10-15) H 04/28/19 04:10 Plt Count 162 10^3/uL (150-450) 04/28/19 04:10 MPV 8.5 fL (7.4-10.4) 04/28/19 04:10 Neut % (Auto) 83.4 % 04/28/19 04:10 Lymph % (Auto) 6.3 % 04/28/19 04:10 Lane % (Auto) 9.9 % 04/28/19 04:10 Eos % (Auto) 0.2 % 04/28/19 04:10 Baso % (Auto) 0.2 % 04/28/19 04:10 Absolute Neuts (auto) 7.8 10^3/ul (1.5-7.7) H 04/28/19 04:10 Absolute Lymphs (auto) 0.6 10^3/ul (1.0-4.8) L 04/28/19 04:10 Absolute Monos (auto) 0.9 10^3/ul (0-0.8) H 04/28/19 04:10 Absolute Eos (auto) 0.0 10^3/ul (0-0.6) 04/28/19 04:10 Absolute Basos (auto) 0.0 10^3/ul (0-0.2) 04/28/19 04:10 Absolute Nucleated RBC 0.0 10^3/ul 04/28/19 04:10 Nucleated RBC % 0.0 04/28/19 04:10 INR (Anticoag Therapy) 1.29 (0.82-1.09) H 04/27/19 12:26 Sodium 137 mmol/L (135-145) 04/28/19 04:10 Potassium 4.0 mmol/L (3.5-5.0) 04/28/19 04:10 Chloride 103 mmol/L (101-111) 04/28/19 04:10 Carbon Dioxide 28 mmol/L (22-32) 04/28/19 04:10 Anion Gap 6 mmol/L (2-11) 04/28/19 04:10 BUN 30 mg/dL (6-24) H 04/28/19 04:10 Creatinine 1.00 mg/dL (0.67-1.17) 04/28/19 04:10 Est GFR ( Amer) 85.1 (>60) 04/28/19 04:10 Est GFR (Non-Af Amer) 70.4 (>60) 04/28/19 04:10 BUN/Creatinine Ratio 30.0 (8-20) H 04/28/19 04:10 Glucose 127 mg/dL (70-100) H 04/28/19 04:10 Calcium 9.1 mg/dL (8.6-10.3) 04/28/19 04:10 Total Bilirubin 0.50 mg/dL (0.2-1.0) 04/27/19 12:26 AST 33 U/L (13-39) 04/27/19 12:26 ALT 4 U/L (7-52) L 04/27/19 12:26 Alkaline Phosphatase 162 U/L (34-104) H 04/27/19 12:26 Total Protein 6.7 g/dL (6.4-8.9) 04/27/19 12:26 Albumin 4.0 g/dL (3.2-5.2) 04/27/19 12:26 Globulin 2.7 g/dL (2-4) 04/27/19 12:26 Albumin/Globulin Ratio 1.5 (1-3) 04/27/19 12:26 Urine Color Yellow 04/27/19 18:35 Urine Appearance Clear 04/27/19 18:35 Urine pH 5.0 (5-9) 04/27/19 18:35 Ur Specific [place] 1.026 (1.010-1.030) 04/27/19 18:35 Urine Protein Negative (Negative) 04/27/19 18:35 Urine Ketones Trace (Negative) A 04/27/19 18:35 Urine Blood 2+ (Negative) A 04/27/19 18:35 Urine Nitrate Negative (Negative) 04/27/19 18:35 Urine Bilirubin Negative (Negative) 04/27/19 18:35 Urine Urobilinogen Negative (Negative) 04/27/19 18:35 Ur Leukocyte Esterase Negative (Negative) 04/27/19 18:35 Urine WBC (Auto) Trace(0-5/hpf) (Absent) 04/27/19 18:35 Urine RBC (Auto) 2+(6-10/hpf) (Absent) A 04/27/19 18:35 Urine Bacteria Absent (Absent) 04/27/19 18:35 Urine Glucose Negative (Negative) 04/27/19 18:35
[2019-04-28] MEDS: oxyCODONE/Acetamin 5/325 MG* TAB PO PRN (12:10)
[2019-04-28] MEDS ORDERED: Buffered Lidocaine 1% SYRIN* 1 ML/SYRINGE INTRADERM ONE (13:01)
--- NOTE | 2019-04-28 14:56 | PN ---
Subjective Date of Service: 04/28/19 Interval History: Patient was seen sitting up in bed. States that his left hip pain is being adequately controlled. Denies lightheadedness, dizziness, chest pain, abdominal pain, nausea, vomiting, or issues moving bowel or bladder. Awaiting surgery tomorrow. Family History: Unchanged from Admission Social History: Unchanged from Admission Past Medical History: Unchanged from Admission Objective Active Medications: Acetaminophen (Tylenol Tab*) 650 mg PO Q6H PRN PRN Reason: PAIN - MILD Allopurinol (Zyloprim Tab*) 200 mg PO DAILY [facility] Last Admin: 04/28/19 08:37 Dose: 200 mg Carbidopa/Levodopa (Sinemet 25/100 Tab(*)) 1 tab PO TID PC [facility] Last Admin: 04/28/19 12:07 Dose: 1 tab Cholecalciferol (Vitamin D Tab*) 1,000 units PO DAILY [facility] Last Admin: 04/28/19 08:38 Dose: 1,000 units Docusate Sodium (Colace Cap*) 100 mg PO BID PRN PRN Reason: CONSTIPATION Finasteride (Proscar Tab*) 5 mg PO DAILY [facility] Last Admin: 04/28/19 08:38 Dose: 5 mg Furosemide (Lasix Tab*) 20 mg PO DAILY [facility] Last Admin: 04/28/19 08:38 Dose: 20 mg Lactated Ringer's (Lactated Ringers 1000 Ml Bag*) 1,000 mls @ 125 mls/hr IV PER RATE [facility] Zoledronic Acid 4 mg/ Sodium (Chloride) 100 mls @ 100 mls/hr IVPB ONCE ONE Stop: 04/30/19 09:59 Lactobacillus Rhamnosus (Lactobacillus Acidophilus*) 1 tab PO DAILY [facility] Last Admin: 04/28/19 08:37 Dose: 1 tab Magnesium Hydroxide (Milk Of Magnesia Liq*) 30 ml PO BID PRN PRN Reason: CONSTIPATION Morphine Sulfate (Morphine Inj (Syringe)*) 4 mg IV Q4H PRN PRN Reason: PAIN - SEVERE Last Admin: 04/28/19 01:32 Dose: 4 mg Oxycodone/Acetaminophen (Percocet 5/325 Tab*) 1 tab PO Q4H PRN PRN Reason: mild to moderate pain Last Admin: 04/28/19 12:10 Dose: 1 tab Polyethylene Glycol/Electrolytes (Miralax (17 Gm Dose Mannie)) 17 gm PO DAILY PRN PRN Reason: CONSTIPATION Senna (Senokot 8.6 Mg Tab*) 1 tab PO BEDTIME PRN PRN Reason: CONSTIPATION Sertraline HCl (Zoloft*) 50 mg PO DAILY [facility] Last Admin: 04/28/19 08:38 Dose: 50 mg Vital Signs - 8 hr 04/28/19 04/28/19 04/28/19 08:05 11:23 12:10 Temperature 97.3 F 97.8 F Pulse Rate 67 85 Respiratory 18 16 16 Rate Blood Pressure 96/55 99/55 (mmHg) O2 Sat by Pulse 97 96 Oximetry Oxygen Devices in Use Now: Nasal Cannula Appearance: This is a well developed older gentleman seen sitting up in bed, no acute distress. Eyes: No Scleral Icterus, PERRLA Ears/Nose/Mouth/Throat: NL Teeth, Lips, Gums, Clear Oropharnyx, Mucous Membranes Moist Neck: NL Appearance and Movements; NL JVP, Trachea Midline Respiratory: Symmetrical Chest Expansion and Respiratory Effort, Clear to Auscultation Cardiovascular: NL Sounds; No Murmurs; No JVD, RRR, - - +2 pitting edema to bilateral lower extremities. +3 non-pitting to left thigh. Abdominal: NL Sounds; No Tenderness; No Distention Lymphatic: No Cervical Adenopathy Extremities: No Clubbing, Cyanosis Skin: - - Multiple healing bruises across upper abdomen and left lower ribs. Right knee abrasion. Bruise under left eye. Neurological: - - Alert and oriented to self, place and situation but not time. Lines/Tubes/Other Access: Clean, Dry and Intact Peripheral IV Result Diagrams: 04/28/19 04:10 04/28/19 04:10 Microbiology and Other Data: Microbiology 04/27/19 18:35 Urine Culture - Final Urine No Growth (<1,000 CFU/mL) Diagnostic Imaging: Order Information: CHEST AP/PORT Accession Number: [id number] CPT: 96710 HISTORY: fall, prostate cancer COMPARISONS: None relevant available at the time of dictation. VIEWS: 1: frontal AP view of the chest at 3:01 PM. The left costophrenic angle is cut off. FINDINGS: LINES AND TUBES: None. CARDIOMEDIASTINAL SILHOUETTE: The cardiomediastinal silhouette is normal for portable technique. PLEURA: The right costophrenic angle is sharp. The left costophrenic angle is cut off. LUNG PARENCHYMA: The lungs are clear. ABDOMEN: The upper abdomen is clear. There is no subphrenic gas. BONES AND SOFT TISSUES: No bone or soft tissue abnormalities are noted. IMPRESSION: LIMITED STUDY. NO ACTIVE CARDIOPULMONARY DISEASE. Order Information: TOE LEFT 5TH Accession Number: [id number] CPT: 25125 HISTORY: Rule out fracture COMPARISONS: None. Left fifth toe: 2 radiographs FINDINGS: A subtle discontinuity of the cortex noted at the level of the base of the proximal phalanx left fifth toe may represent an undisplaced fracture of the sacrum no other fracture is demonstrated IMPRESSION: QUESTIONABLE UNDISPLACED FRACTURE BASE OF THE PROXIMAL PHALANX LEFT FIFTH TOE EKG Data: ECG Report Patient Name ERICA AGUERO Birthdate 1930 Sex M Order Number [id number] Date of ECG 04/27/2019 15:13:25 Interpretation Sinus rhythm.normal P axis, V-rate 60- 99 Atrial premature complex.SV complex w/ short R-R interval Prolonged [place] interval.W[place] >220, V-rate 50- 90 Inferior infarct, old.Q >35mS, II III aVF - ABNORMAL ECG - CHANGES SINCE THE PREVIOUS RECORD OF 12 Lead 02/19/2019 19:00:07: Prolonged [place] interval. New Q wave in lead 3. Electronically signed on 04/27/2019 at 23:12 by Vidya Chamorro MD Assess/Plan/Problems-Billing Assessment: This is an 89 year old male with a PMH of parkinsonian symptoms, afib and TIA who was admitted on 04/27/19 s/p call resulting in left femur fracture. - Patient Problems (1) Closed left hip fracture Current Visit: Yes Status: Acute Code(s): S72.002A - FRACTURE OF UNSP PART OF NECK OF LEFT FEMUR, INIT SNOMED Code(s): 784145664 Comment: - Sustained a fracture from a standing height at home. 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 - Plan is for surgery tomorrow. RCRI score is 0, indicated a 3.9% risk of , IN or cardiac arrest. METS less than 4. Echo showed an EF of 55-60% with grade 1 diastolic dysfunction. EKG showed sinus arrhythmia with first degree HB. I would recommend postoperative telemetry monitoring. - Due to fracture from standing height, he would benefit from a one time dose of IV zoledronic acid to prevent further fracture. -NPO after midnight for surgery in AM. will start normal saline @ 75ml/hr at 2100. (2) Afib Current Visit: Yes Status: Acute Code(s): I48.91 - UNSPECIFIED ATRIAL FIBRILLATION SNOMED Code(s): 87362374 Comment: - Is not on any rate control medication, currently in sinus rhythm. -Apixaban on hold for surgery. (3) Gout Current Visit: Yes Status: Acute Code(s): M10.9 - GOUT, UNSPECIFIED SNOMED Code(s): 38593360 Comment: -Continue allopurinol. (4) TIA (obstructive sleep apnea) Current Visit: Yes Status: Acute Code(s): G47.33 - OBSTRUCTIVE SLEEP APNEA ( ADULT) (PEDIATRIC) SNOMED Code(s): 29568766 Comment: -Does not use a cpap. Suggest O2 supplementation in the overnight. (5) Depression Current Visit: Yes Status: Acute Code(s): F32.9 - MAJOR DEPRESSIVE DISORDER , SINGLE EPISODE, UNSPECIFIED SNOMED Code(s): 92731726 Comment: - Continue sertraline. (6) Parkinsonian features Current Visit: Yes Status: Acute Code(s): R25.9 - UNSPECIFIED ABNORMAL INVOLUNTARY MOVEMENTS SNOMED Code(s): 382413989 Comment: - Continue sinemet. (7) BPH (benign prostatic hyperplasia) Current Visit: Yes Status: Acute Code(s): N40.0 - BENIGN PROSTATIC HYPERPLASIA WITHOUT LOWER URINRY TRACT SYMP SNOMED Code(s): 630250889 Comment: - Continue finesteride. 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 (9) DVT prophylaxis Current Visit: Yes Status: Acute Code(s): Z29.9 - ENCOUNTER FOR PROPHYLACTIC MEASURES, UNSPECIFIED SNOMED Code(s): 508144664 Comment: -Apixiban on hold, no need to bridge with heparin. (10) Full code status Current Visit: Yes Status: Acute Code(s): Z78.9 - OTHER SPECIFIED HEALTH STATUS SNOMED Code(s): 758857991 Status and Disposition: Condition: Guarded Dispo: Admit inpatient to [facility]. Attending: Naa Ag
[2019-04-28] MEDS ORDERED: NS 0.9% 1000 ML** 1,000 ML IV SCH (21:00)
[2019-04-29] MEDS: Morphine INJ* 4 MG/ML 1 ML SYRINGE (NEW SYRINGE VERSION) IV PRN ×2 (03:55→09:48)
[2019-04-29] MEDS ORDERED: Lactated Ringers 1000 ML Bag* 1,000 ML IV SCH (06:00)
[2019-04-29 06:12] LABS: INR 1.25 (0.82-1.09)
[2019-04-29] MEDS: Carbidopa/Levodop 25/100 MG TAB(*) PO SCH ×3 (09:52→17:44)
[2019-04-29] MEDS: Finasteride TAB* 5 MG PO SCH (10:00)
[2019-04-29] MEDS: Sertraline* 50 MG TAB PO SCH (10:00)
[2019-04-29] MEDS: Allopurinol TAB* 100 MG PO SCH (10:00)
[2019-04-29] MEDS: Cholecalciferol TAB* 1000 UNITS PO SCH (10:00)
[2019-04-29] MEDS: Furosemide TAB* 20 MG PO SCH (10:00)
[2019-04-29] MEDS: Lactobacillus Acidophilus* 1 TAB PO SCH (10:00)
[2019-04-29] MEDS ORDERED: ceFAZolin 2 GM PREMIX in ORs 2 GM/50 ML BAG ONE (12:19)
[2019-04-29] MEDS ORDERED: HYDROmorphone INJ1* 1 MG/ML SYRINGE IV PRN ×2 (12:52→12:54)
[2019-04-29] MEDS ORDERED: Naloxone* 0.4 MG/ML 1 ML VIAL IV PRN (12:52)
[2019-04-29] MEDS ORDERED: Bupivacaine 0.25% SDV* 30 ML ONE (13:15)
[2019-04-29] MEDS ORDERED: Dexamethasone IV* 4 MG/ML 1 ML (4 MG) ONE (14:07)
[2019-04-29] MEDS ORDERED: Etomidate* 2 MG/ML 10 ML VIAL ONE (14:07)
[2019-04-29] MEDS ORDERED: Propofol* 500 MG/50 ML BTL ONE (14:07)
[2019-04-29] MEDS ORDERED: Lidocaine 2% PF * 5 ML VIAL ONE (14:07)
[2019-04-29] MEDS ORDERED: fentaNYL* 50 MCG/ML 2 ML VIAL (100 MCG VIAL) ONE (14:08)
[2019-04-29] MEDS ORDERED: EPHEDrine (Pressors)* 50 MG/ML VIAL ONE (14:25)
[2019-04-29] MEDS ORDERED: Phenylephrine 40 MCG/ML SYRINGE ONE (14:25)
--- NOTE | 2019-04-29 15:19 | OP ---
Operative Report - Blank - Operative Report Date of Operation: 04/29/19 Note: PATIENT: Nasim Cortes DATE OF : 1930 DATE OF SURGERY: 04/29/2019 SURGEON: Philip Chanel MD WATER PUMP INSTALLER: None ANESTHESIOLOGIST: Dr. Isaacs PREOPERATIVE DIAGNOSIS: Left intertrochanteric hip fracture. POSTOPERATIVE DIAGNOSIS: Left intertrochanteric hip fracture. PROCEDURE: Open reduction and internal fixation of the left hip fracture utilizing a cephalomedullary nail. ANESTHESIA: GETA IMPLANTS: Jurgen gamma nail measuring 55n819 mm with 125 degree neck shaft angle, 105 mm lag screw, and 35 mm distal interlocking screw. ESTIMATED BLOOD LOSS: 50cc SPECIMENS: None. DRAIN: None TOURNIQUET TIME: None. COMPLICATIONS: None. STATUS: Stable from the operating room to the recovery room and then readmitted to the floor. INDICATIONS FOR PROCEDURE: Mr Cortes sustained a fall with the above-mentioned injury. Both operative and non operative treatment alternatives were reviewed. Further, the nature and risks of surgery were reviewed in careful detail. Our discussions regarding the risks of surgery included, but were not limited to, bleeding, need for blood transfusion, infection, wound problems, malunion, nonunion, nerve injury, neuroma, RSD, persistent symptoms, need for further surgery and even the remote chance of catastrophic complication, including loss of limb or . DESCRIPTION OF PROCEDURE: The patient was seen in the preoperative holding unit and informed written consent was obtained. The appropriate extremity was marked. The patient was then brought to the operating room anesthesia was induced. The patient was then carefully positioned on the fracture table and all bony prominences were padded with great care. We fluoroscopically assessed the fracture and pulled traction to gain a reduction. A chlorhexidine-based pre- scrub was performed followed by prep and drape in standard sterile fashion with ChloraPrep. A surgical safety pause was then conducted in which we confirmed the appropriate patient, extremity, planned procedure, availability of equipment , indication and administration of prophylactic antibiotics, and DVT prophylaxis in the form of a compression boot on the non-surgical extremity. I made an approximately 4-cm incision in line with the femur proximal to the greater trochanter. I carried the dissection down through the soft tissue and found the starting point on the greater trochanter utilizing the guidewire. This was confirmed fluoroscopically. I tapped the guidewire into proper position and then confirmed the position of the guidewire fluoroscopically. At this point, I overdrilled utilizing the starting reamer. This was done with fluoroscopic guidance as well. I then passed the short nail into appropriate position and gently tapped this down. The reduction was maintained during this portion of the procedure. I placed a guidewire up into the femoral neck and confirmed that this was center-center within the femoral head. I then measured the length of the guidewire and overdrilled this. I then placed the screw up into the femoral head. I confirmed that this was in the appropriate position utilizing multiple views fluoroscopically. I then locked this lag screw into place. At this point, I placed a single static interlocking screw distally into the nail utilizing the guide. At this point, I removed the guide arm and obtained final fluoroscopic images. I was pleased with the reduction and the position of the hardware. I irrigated copiously and closed in layers utilizing #1 Vicryl for the deep layer, 2-0 Vicryl for the Sagar's and superficial layers , and abigail for the skin. A sterile dressing was then applied. At this point, the patient was carefully transitioned off of the fracture table and awakened from anesthesia. There were no complications. All needle and sponge counts were correct at the end of the case. ATTESTATION: I attest I was present and scrubbed and performed the entire procedure myself. POSTOPERATIVE PLAN: The patient will be admitted back to the medical service postoperatively and may be weightbearing as tolerated and will work with physical therapy. He can restart his baseline anticoagulation tomorrow.
--- NOTE | 2019-04-29 17:34 | PN ---
Subjective Date of Service: 04/29/19 Interval History: Pt has returned from surgery and is groggy at this time, awakened to verbal stimuli, slow to answer questions but does follow instruction. Pt is alert to self and year but uncertain of date. Pt is without any complaints of chest pain , SOB, or pain in left hip. Family History: Unchanged from Admission Social History: Unchanged from Admission Past Medical History: Unchanged from Admission Objective Active Medications: Acetaminophen (Tylenol Tab*) 650 mg PO Q6H PRN PRN Reason: PAIN - MILD Allopurinol (Zyloprim Tab*) 200 mg PO DAILY [facility] [place] Last Admin: 04/29/19 10:00 Dose: Not Given Apixaban (Eliquis*) 2.5 mg PO BID [facility] Carbidopa/Levodopa (Sinemet 25/100 Tab(*)) 1 tab PO TID [facility] Last Admin: 04/29/19 11:49 Dose: Not Given Cholecalciferol (Vitamin D Tab*) 1,000 units PO DAILY [facility] [place] Last Admin: 04/29/19 10:00 Dose: Not Given Docusate Sodium (Colace Cap*) 100 mg PO BID PRN PRN Reason: CONSTIPATION Finasteride (Proscar Tab*) 5 mg PO DAILY [facility] Last Admin: 04/29/19 10:00 Dose: Not Given Furosemide (Lasix Tab*) 20 mg PO DAILY [facility] [place] Last Admin: 04/29/19 10:00 Dose: Not Given Zoledronic Acid 4 mg/ Sodium (Chloride) 100 mls @ 100 mls/hr IVPB ONCE ONE Stop: 04/30/19 09:59 Lactobacillus Rhamnosus (Lactobacillus Acidophilus*) 1 tab PO DAILY [facility] Last Admin: 04/29/19 10:00 Dose: Not Given Magnesium Hydroxide (Milk Of Magnesia Liq*) 30 ml PO BID PRN PRN Reason: CONSTIPATION Morphine Sulfate (Morphine Inj (Syringe)*) 4 mg IV Q4H PRN PRN Reason: PAIN - SEVERE Last Admin: 04/29/19 09:48 Dose: 4 mg Oxycodone/Acetaminophen (Percocet 5/325 Tab*) 1 tab PO Q4H PRN PRN Reason: mild to moderate pain Last Admin: 04/28/19 12:10 Dose: 1 tab Polyethylene Glycol/Electrolytes (Miralax (17 Gm Dose Mannie)) 17 gm PO DAILY PRN PRN Reason: CONSTIPATION Senna (Senokot 8.6 Mg Tab*) 1 tab PO BEDTIME PRN PRN Reason: CONSTIPATION Sertraline HCl (Zoloft*) 50 mg PO DAILY [facility] Last Admin: 04/29/19 10:00 Dose: Not Given Vital Signs - 8 hr 04/29/19 04/29/19 04/29/19 09:48 10:34 13:22 Temperature 97.9 F Pulse Rate 75 75 Respiratory 18 16 Rate Blood Pressure 103/51 (mmHg) O2 Sat by Pulse 96 93 Oximetry 04/29/19 04/29/19 04/29/19 14:58 14:59 15:00 Temperature 97.0 F Pulse Rate 87 88 85 Respiratory 18 11 16 Rate Blood Pressure 112/70 120/73 (mmHg) O2 Sat by Pulse 99 100 100 Oximetry 04/29/19 04/29/19 04/29/19 15:05 15:10 15:15 Temperature Pulse Rate 89 91 86 Respiratory 20 17 13 Rate Blood Pressure 120/75 130/80 116/83 (mmHg) O2 Sat by Pulse 98 99 98 Oximetry 04/29/19 04/29/19 04/29/19 15:20 15:30 15:35 Temperature Pulse Rate 85 Respiratory 20 18 16 Rate Blood Pressure 119/74 (mmHg) O2 Sat by Pulse 98 Oximetry 04/29/19 04/29/19 04/29/19 15:45 15:50 16:00 Temperature Pulse Rate 81 84 Respiratory 12 14 27 Rate Blood Pressure 104/63 112/59 (mmHg) O2 Sat by Pulse 98 96 Oximetry 04/29/19 04/29/19 16:20 16:37 Temperature 98.4 F Pulse Rate 76 Respiratory 16 16 Rate Blood Pressure 106/61 (mmHg) O2 Sat by Pulse 96 Oximetry Oxygen Devices in Use Now: Nasal Cannula Appearance: Elderly gentleman laying in bed sleeping, snoring loudly. Does not appear to be in any distress. Eyes: No Scleral Icterus, PERRLA Ears/Nose/Mouth/Throat: NL Teeth, Lips, Gums, Clear Oropharnyx, Mucous Membranes Moist Neck: NL Appearance and Movements; NL JVP, Trachea Midline, No Thyroid Enlargement, Masses Respiratory: Symmetrical Chest Expansion and Respiratory Effort, Clear to Auscultation Cardiovascular: NL Sounds; No Murmurs; No JVD, RRR Abdominal: NL Sounds; No Tenderness; No Distention, No Hepatosplenomegaly Extremities: - - +1 pitting edema in ankles bilaterally only Skin: No Rash or Ulcers, No Nodules or Sclerosis Neurological: NL Sensation, NL Muscle Strength and Tone, - - Alert to self and year. strategic sourcing manager equal strength bilaterally Result Diagrams: 04/28/19 04:10 04/28/19 04:10 Microbiology and Other Data: Microbiology 04/27/19 18:35 Urine Culture - Final Urine No Growth (<1,000 CFU/mL) Diagnostic Imaging: Order Information: CHEST AP/PORT Accession Number: [id number] CPT: 66296 HISTORY: fall, prostate cancer COMPARISONS: None relevant available at the time of dictation. VIEWS: 1: frontal AP view of the chest at 3:01 PM. The left costophrenic angle is cut off. FINDINGS: LINES AND TUBES: None. CARDIOMEDIASTINAL SILHOUETTE: The cardiomediastinal silhouette is normal for portable technique. PLEURA: The right costophrenic angle is sharp. The left costophrenic angle is cut off. LUNG PARENCHYMA: The lungs are clear. ABDOMEN: The upper abdomen is clear. There is no subphrenic gas. BONES AND SOFT TISSUES: No bone or soft tissue abnormalities are noted. IMPRESSION: LIMITED STUDY. NO ACTIVE CARDIOPULMONARY DISEASE. Order Information: TOE LEFT 5TH Accession Number: [id number] CPT: 82002 HISTORY: Rule out fracture COMPARISONS: None. Left fifth toe: 2 radiographs FINDINGS: A subtle discontinuity of the cortex noted at the level of the base of the proximal phalanx left fifth toe may represent an undisplaced fracture of the sacrum no other fracture is demonstrated IMPRESSION: QUESTIONABLE UNDISPLACED FRACTURE BASE OF THE PROXIMAL PHALANX LEFT FIFTH TOE EKG Data: ECG Report Patient Name ERICA CORTES Birthdate 1930 Sex M Order Number [id number] Date of ECG 04/27/2019 15:13:25 Interpretation Sinus rhythm.normal P axis, V-rate 60- 99 Atrial premature complex.SV complex w/ short R-R interval Prolonged [place] interval.[place] >220, V-rate 50- 90 Inferior infarct, old.Q >35mS, II III aVF - ABNORMAL ECG - CHANGES SINCE THE PREVIOUS RECORD OF 12 Lead 02/19/2019 19:00:07: Prolonged [place] interval. New Q wave in lead 3. Electronically signed on 04/27/2019 at 23:12 by Vidya Chamorro MD Assess/Plan/Problems-Billing Assessment: This is an 89 year old male with a PMH of parkinsonian symptoms, afib and TIA who was admitted on 04/27/19 s/p fall resulting in left femur fracture. - Patient Problems (1) Status post-operative repair of closed fracture of left hip Current Visit: Yes Comment: -Dressing CDI left hip ice bag in place. -NS @75cc/hr ordered -Ortho will be ordering abx (2) Afib Current Visit: Yes Comment: - Is not on any rate control medication, currently in sinus rhythm. - Apixaban on hold for surgery. (3) BPH (benign prostatic hyperplasia) Current Visit: Yes Comment: - Continue finesteride. (4) Gout Current Visit: Yes Comment: -Continue allopurinol. (5) TIA (obstructive sleep apnea) Current Visit: Yes Comment: -Does not use a cpap. Suggest O2 supplementation in the overnight. (6) Prostate cancer metastatic to bone Current Visit: Yes Comment: - Due to the potential for neutropenia, Xtandi on hold for surgery. (7) Parkinsonian features Current Visit: Yes Comment: - Continue sinemet. (8) Depression Current Visit: Yes Comment: - Continue sertraline. (9) DVT prophylaxis Current Visit: Yes Comment: -Apixiban on hold, no need to bridge with heparin. (10) Full code status Current Visit: Yes Comment: -HCP- Dalia Cortes- [phone] Status and Disposition: Condition: Guarded Dispo: Admit inpatient to [facility].
[2019-04-29] MEDS: NS 0.9% 1000 ML** 1,000 ML IV SCH (17:44)
[2019-04-29] MEDS: oxyCODONE/Acetamin 5/325 MG* TAB PO PRN (18:13)
[2019-04-29] MEDS: ceFAZolin 1 GM* X 3 DOSES POST-OP Q8H (AddVan) IVPB SCH ×2 (22:01)
[2019-04-30] MEDS: ceFAZolin 1 GM* X 3 DOSES POST-OP Q8H (AddVan) IVPB SCH ×4 (05:53→14:01)
[2019-04-30] MEDS: NS 0.9% 1000 ML** 1,000 ML IV SCH (07:08)
[2019-04-30] MEDS ORDERED: Zoledronic Acid* 4 MG in NS 0.9% 100 ML* 95 ML IVPB ONE (09:00)
[2019-04-30] MEDS: Allopurinol TAB* 100 MG PO SCH (09:13)
[2019-04-30] MEDS: Cholecalciferol TAB* 1000 UNITS PO SCH (09:13)
[2019-04-30] MEDS: Sertraline* 50 MG TAB PO SCH (09:13)
[2019-04-30] MEDS: Lactobacillus Acidophilus* 1 TAB PO SCH (09:13)
[2019-04-30] MEDS: Finasteride TAB* 5 MG PO SCH (09:13)
[2019-04-30] MEDS: Carbidopa/Levodop 25/100 MG TAB(*) PO SCH ×3 (09:14→17:34)
[2019-04-30] MEDS: Apixaban* 2.5 MG TAB PO SCH ×2 (09:14→20:35)
[2019-04-30] MEDS: Furosemide TAB* 20 MG PO SCH (09:16)
[2019-04-30] MEDS: Acetaminophen TAB* 325 MG PO PRN ×2 (09:18→20:35)
--- NOTE | 2019-04-30 10:12 | PN ---
Progress Note - Progress Note Date of Service: 04/30/19 SOAP: Subjective: POD #1 Left hip ORIF with cephalomedullary nail. Doing well, no pain. Denies CP/ SOB, f/c, n/v. Objective: Vital Signs: Temp Pulse Resp BP Pulse Ox 97.6 F 78 16 107/55 93 04/30/19 08:13 04/30/19 08:13 04/30/19 08:13 04/30/19 08:13 04/30/19 08:13 Gen: A&Ox2, unable to recall date. NAD at rest laying in bed Left hip: Dressing C/D/I, thigh soft, NT. + f/e at ankle and MTPs. N/V intact Labs: Laboratory Results - last 24 hr 04/29/19 12:50 APTT 31.2 Assessment: POD #1 Left hip ORIF Plan: PT/OT, PMRU consult WBAT LLE with walker/assist Eliquis for DVT ppx (patient to resume home dose with hx of Afib)
[2019-04-30] MEDS: oxyCODONE/Acetamin 5/325 MG* TAB PO PRN (11:13)
--- NOTE | 2019-04-30 14:57 | PN ---
Subjective Date of Service: 04/30/19 Interval History: Sitting up in chair. NAD. Denies any pain. Denies any headache, lightheadedness , CP, SOB, N/V/D, unusual numbness/tingling. Family History: Unchanged from Admission Social History: Unchanged from Admission Past Medical History: Unchanged from Admission Objective Active Medications: Acetaminophen (Tylenol Tab*) 650 mg PO Q6H PRN PRN Reason: PAIN - MILD Last Admin: 04/30/19 09:18 Dose: 650 mg Allopurinol (Zyloprim Tab*) 200 mg PO DAILY [facility] Last Admin: 04/30/19 09:13 Dose: 200 mg Apixaban (Eliquis*) 2.5 mg PO BID [facility] Last Admin: 04/30/19 09:14 Dose: 2.5 mg Carbidopa/Levodopa (Sinemet 25/100 Tab(*)) 1 tab PO TID PC [facility] Last Admin: 04/30/19 13:04 Dose: 1 tab Cholecalciferol (Vitamin D Tab*) 1,000 units PO DAILY [facility] Last Admin: 04/30/19 09:13 Dose: 1,000 units Docusate Sodium (Colace Cap*) 100 mg PO BID PRN PRN Reason: CONSTIPATION Finasteride (Proscar Tab*) 5 mg PO DAILY [facility] Last Admin: 04/30/19 09:13 Dose: 5 mg Furosemide (Lasix Tab*) 20 mg PO DAILY [facility] Last Admin: 04/30/19 09:16 Dose: 20 mg Sodium Chloride (Ns 0.9% 1000 Ml) 1,000 mls @ 75 mls/hr IV PER RATE [facility] Last Admin: 04/30/19 07:08 Dose: 75 mls/hr Lactobacillus Rhamnosus (Lactobacillus Acidophilus*) 1 tab PO DAILY [facility] Last Admin: 04/30/19 09:13 Dose: 1 tab Magnesium Hydroxide (Milk Of Magnesia Liq*) 30 ml PO BID PRN PRN Reason: CONSTIPATION Morphine Sulfate (Morphine Inj (Syringe)*) 4 mg IV Q4H PRN PRN Reason: PAIN - SEVERE Last Admin: 04/29/19 09:48 Dose: 4 mg Oxycodone/Acetaminophen (Percocet 5/325 Tab*) 1 tab PO Q4H PRN PRN Reason: mild to moderate pain Last Admin: 04/30/19 11:13 Dose: 1 tab Polyethylene Glycol/Electrolytes (Miralax (17 Gm Dose Mannie)) 17 gm PO DAILY PRN PRN Reason: CONSTIPATION Senna (Senokot 8.6 Mg Tab*) 1 tab PO BEDTIME PRN PRN Reason: CONSTIPATION Sertraline HCl (Zoloft*) 50 mg PO DAILY [facility] Last Admin: 04/30/19 09:13 Dose: 50 mg Vital Signs - 8 hr 04/30/19 04/30/19 04/30/19 08:13 11:13 12:23 Temperature 97.6 F 97.7 F Pulse Rate 78 78 Respiratory 16 16 18 Rate Blood Pressure 107/55 92/58 (mmHg) O2 Sat by Pulse 93 100 Oximetry 04/30/19 13:05 Temperature Pulse Rate Respiratory 18 Rate Blood Pressure (mmHg) O2 Sat by Pulse Oximetry Oxygen Devices in Use Now: Nasal Cannula Eyes: No Scleral Icterus, - - PERRL, EOMI Ears/Nose/Mouth/Throat: Clear Oropharnyx Respiratory: Symmetrical Chest Expansion and Respiratory Effort, Clear to Auscultation Cardiovascular: - - HR irregular, S1/S2 present, no murmurs, rubs or gallops Abdominal: NL Sounds; No Tenderness; No Distention Extremities: - - 2+ pitting edema LLE, trace non-pitting edema RLE Skin: - - incision to L hip covered with dressing, CDI Neurological: - - Alert, oriented to self and place, unsure of situation or time , CN II-XII grossly intact Result Diagrams: 04/28/19 04:10 04/28/19 04:10 Microbiology and Other Data: Microbiology 04/27/19 18:35 Urine Culture - Final Urine No Growth (<1,000 CFU/mL) Diagnostic Imaging: Order Information: CHEST AP/PORT Accession Number: [id number] CPT: 21275 HISTORY: fall, prostate cancer COMPARISONS: None relevant available at the time of dictation. VIEWS: 1: frontal AP view of the chest at 3:01 PM. The left costophrenic angle is cut off. FINDINGS: LINES AND TUBES: None. CARDIOMEDIASTINAL SILHOUETTE: The cardiomediastinal silhouette is normal for portable technique. PLEURA: The right costophrenic angle is sharp. The left costophrenic angle is cut off. LUNG PARENCHYMA: The lungs are clear. ABDOMEN: The upper abdomen is clear. There is no subphrenic gas. BONES AND SOFT TISSUES: No bone or soft tissue abnormalities are noted. IMPRESSION: LIMITED STUDY. NO ACTIVE CARDIOPULMONARY DISEASE. Order Information: TOE LEFT 5TH Accession Number: [id number] CPT: 05394 HISTORY: Rule out fracture COMPARISONS: None. Left fifth toe: 2 radiographs FINDINGS: A subtle discontinuity of the cortex noted at the level of the base of the proximal phalanx left fifth toe may represent an undisplaced fracture of the sacrum no other fracture is demonstrated IMPRESSION: QUESTIONABLE UNDISPLACED FRACTURE BASE OF THE PROXIMAL PHALANX LEFT FIFTH TOE EKG Data: ECG Report Patient Name ERICA AGUERO Birthdate 1930 Sex M Order Number [id number] Date of ECG 04/27/2019 15:13:25 Interpretation Sinus rhythm.normal P axis, V-rate 60- 99 Atrial premature complex.SV complex w/ short R-R interval Prolonged FL interval.FL >220, V-rate 50- 90 Inferior infarct, old.Q >35mS, II III aVF - ABNORMAL ECG - CHANGES SINCE THE PREVIOUS RECORD OF 12 Lead 02/19/2019 19:00:07: Prolonged FL interval. New Q wave in lead 3. Electronically signed on 04/27/2019 at 23:12 by Vidya Chamorro MD Assess/Plan/Problems-Billing Assessment: This is an 89 year old male with a PMH of parkinsonian symptoms, afib and TIA who was admitted on 04/27/19 s/p fall resulting in left femur fracture. - Patient Problems (1) Status post-operative repair of closed fracture of left hip Current Visit: Yes Status: Acute Code(s): Z98.890 - OTHER SPECIFIED POSTPROCEDURAL STATES; Z87.81 - PERSONAL HISTORY OF (HEALED) TRAUMATIC FRACTURE SNOMED Code(s): 275718231 Comment: Sustained a fracture from a standing height at home. 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 ORIF with 04/28. - Due to fracture from standing height, it was recommended he be given a one time dose of IV zoledronic acid to prevent further fracture, given 04/29 - incision management, abx and IVF per ortho (2) Afib Current Visit: Yes Status: Acute Code(s): I48.91 - UNSPECIFIED ATRIAL FIBRILLATION SNOMED Code(s): 54764988 Comment: Is not on medication for rate control, SR per EKG, rate WNL with one noted at 104, may have been spike in relation to pain or activity - Apixaban restarted on 04/29 (3) BPH (benign prostatic hyperplasia) Current Visit: Yes Status: Acute Code(s): N40.0 - BENIGN PROSTATIC HYPERPLASIA WITHOUT LOWER URINRY TRACT SYMP SNOMED Code(s): 962123727 Comment: - Continue finesteride. (4) Depression Current Visit: Yes Status: Acute Code(s): F32.9 - MAJOR DEPRESSIVE DISORDER , SINGLE EPISODE, UNSPECIFIED SNOMED Code(s): 23144254 Comment: - Continue sertraline. (5) Gout Current Visit: Yes Status: Acute Code(s): M10.9 - GOUT, UNSPECIFIED SNOMED Code(s): 89297403 Comment: -Continue allopurinol. (6) TIA (obstructive sleep apnea) Current Visit: Yes Status: Acute Code(s): G47.33 - OBSTRUCTIVE SLEEP APNEA ( ADULT) (PEDIATRIC) SNOMED Code(s): 96970179 Comment: -Does not use a cpap. Suggest O2 supplementation in the overnight. (7) Parkinson disease Current Visit: Yes Status: Acute Code(s): G20 - PARKINSON'S DISEASE SNOMED Code(s): 16992437 Comment: Continue sinimet (8) Prostate cancer Current Visit: Yes Status: Acute Code(s): C61 - MALIGNANT NEOPLASM OF PROSTATE SNOMED Code(s): 511480593 Comment: - Due to the potential for neutropenia, Xtandi on hold for surgery. Plan to f/u about this medication on an outpatient basis - Can f/u outpt with oncologist (9) DVT prophylaxis Current Visit: Yes Status: Acute Code(s): Z29.9 - ENCOUNTER FOR PROPHYLACTIC MEASURES, UNSPECIFIED SNOMED Code(s): 343313375 Comment: -Apixiban started 04/29, SCDs (10) Code status needs review Current Visit: Yes Status: Acute Code(s): VYM5739 - SNOMED Code(s): 862346908 Comment: Per H+P DNR status was confirmed with , attempted to call and confirm this afternoon to complete MOLST however there was no answer, needs f/u Status and Disposition: Condition: stable Dispo: Admit inpatient to [facility]. Attending: Antonia Morrison
[2019-05-01] MEDS: oxyCODONE/Acetamin 5/325 MG* TAB PO PRN ×2 (01:02→17:20)
[2019-05-01] MEDS: Acetaminophen TAB* 325 MG PO PRN ×2 (05:35→12:08)
[2019-05-01 08:08] LABS: Hematocrit 28 % (42-52); Hemoglobin 9.2 g/dL (14.0-18.0)
[2019-05-01] MEDS: Apixaban* 2.5 MG TAB PO SCH ×2 (09:49→22:04)
[2019-05-01] MEDS: Carbidopa/Levodop 25/100 MG TAB(*) PO SCH ×3 (09:49→17:20)
[2019-05-01] MEDS: Finasteride TAB* 5 MG PO SCH (09:51)
[2019-05-01] MEDS: Sertraline* 50 MG TAB PO SCH (09:51)
[2019-05-01] MEDS: Allopurinol TAB* 100 MG PO SCH (09:51)
[2019-05-01] MEDS: Cholecalciferol TAB* 1000 UNITS PO SCH (09:52)
[2019-05-01] MEDS: Lactobacillus Acidophilus* 1 TAB PO SCH (09:52)
--- NOTE | 2019-05-01 11:37 | PN ---
Progress Note - Progress Note Date of Service: 05/01/19 SOAP: Subjective: POD #2 Left hip ORIF with cephalomedullary nail. Patient seen and examined in bed. Doing well, no pain. Denies CP/SOB, f/c, n/v. Objective: Vitals: Vital Signs Temp Pulse Resp BP Pulse Ox 98.2 F 83 16 104/57 96 05/01/19 08:54 05/01/19 08:54 05/01/19 08:54 05/01/19 08:54 05/01/19 08:54 Gen: A&Ox2, unable to recall date. NAD at rest laying in bed Left hip: Dressing changed today, incision C/D/I. thigh soft, NT. + f/e at ankle and MTPs. N/V intact Labs: Laboratory Last Values WBC 9.3 10^3/uL (3.5-10.8) 04/28/19 04:10 RBC 3.83 10^6 /uL (4.18-5.48) L 04/28/19 04:10 Hgb 9.2 g/dL (14.0-18.0) L 05/01/19 07:55 Hct 28 % (42-52) L 05/01/19 07:55 MCV 84 fL (80-94) 04/28/19 04:10 MCH 28 pg (27-31) 04/28/19 04:10 MCHC 33 g/dL (31-36) 04/28/19 04:10 RDW 16 % (10-15) H 04/28/19 04:10 Plt Count 162 10^3/uL (150-450) 04/28/19 04:10 MPV 8.5 fL (7.4-10.4) 04/28/19 04:10 Neut % (Auto) 83.4 % 04/28/19 04:10 Lymph % (Auto) 6.3 % 04/28/19 04:10 [place] % (Auto) 9.9 % 04/28/19 04:10 Eos % (Auto) 0.2 % 04/28/19 04:10 Baso % (Auto) 0.2 % 04/28/19 04:10 Absolute Neuts (auto) 7.8 10^3/ul (1.5-7.7) H 04/28/19 04:10 Absolute Lymphs (auto) 0.6 10^3/ul (1.0-4.8) L 04/28/19 04:10 Absolute Monos (auto) 0.9 10^3/ul (0-0.8) H 04/28/19 04:10 Absolute Eos (auto) 0.0 10^3/ul (0-0.6) 04/28/19 04:10 Absolute Basos (auto) 0.0 10^3/ul (0-0.2) 04/28/19 04:10 Absolute Nucleated RBC 0.0 10^3/ul 04/28/19 04:10 Nucleated RBC % 0.0 04/28/19 04:10 INR (Anticoag Therapy) 1.25 (0.82-1.09) H 04/29/19 05:59 APTT 31.2 seconds (26.0-38.0) 04/29/19 12:50 Sodium 137 mmol/L (135-145) 04/28/19 04:10 Potassium 4.0 mmol/L (3.5-5.0) 04/28/19 04:10 Chloride 103 mmol/L (101-111) 04/28/19 04:10 Carbon Dioxide 28 mmol/L (22-32) 04/28/19 04:10 Anion Gap 6 mmol/L (2-11) 04/28/19 04:10 BUN 30 mg/dL (6-24) H 04/28/19 04:10 Creatinine 1.00 mg/dL (0.67-1.17) 04/28/19 04:10 Est GFR ( Amer) 85.1 (>60) 04/28/19 04:10 Est GFR (Non-Af Amer) 70.4 (>60) 04/28/19 04:10 BUN/Creatinine Ratio 30.0 (8-20) H 04/28/19 04:10 Glucose 127 mg/dL (70-100) H 04/28/19 04:10 Calcium 9.1 mg/dL (8.6-10.3) 04/28/19 04:10 Total Bilirubin 0.50 mg/dL (0.2-1.0) 04/27/19 12:26 AST 33 U/L (13-39) 04/27/19 12:26 ALT 4 U/L (7-52) L 04/27/19 12:26 Alkaline Phosphatase 162 U/L (34-104) H 04/27/19 12:26 Total Protein 6.7 g/dL (6.4-8.9) 04/27/19 12:26 Albumin 4.0 g/dL (3.2-5.2) 04/27/19 12:26 Globulin 2.7 g/dL (2-4) 04/27/19 12:26 Albumin/Globulin Ratio 1.5 (1-3) 04/27/19 12:26 Urine Color Yellow 04/27/19 18:35 Urine Appearance Clear 04/27/19 18:35 Urine pH 5.0 (5-9) 04/27/19 18:35 Ur Specific [place] 1.026 (1.010-1.030) 04/27/19 18:35 Urine Protein Negative (Negative) 04/27/19 18:35 Urine Ketones Trace (Negative) A 04/27/19 18:35 Urine Blood 2+ (Negative) A 04/27/19 18:35 Urine Nitrate Negative (Negative) 04/27/19 18:35 Urine Bilirubin Negative (Negative) 04/27/19 18:35 Urine Urobilinogen Negative (Negative) 04/27/19 18:35 Ur Leukocyte Esterase Negative (Negative) 04/27/19 18:35 Urine WBC (Auto) Trace(0-5/hpf) (Absent) 04/27/19 18:35 Urine RBC (Auto) 2+(6-10/hpf) (Absent) A 04/27/19 18:35 Urine Bacteria Absent (Absent) 04/27/19 18:35 Urine Glucose Negative (Negative) 04/27/19 18:35 Blood Type O Positive 04/29/19 05:59 Antibody Screen Negative 04/29/19 05:59 Assessment: POD #2 Left hip ORIF Plan: Cont pain management as needed Cont PT/OT, PMRU consult WBAT LLE with walker/assist Eliquis for DVT ppx (patient to resume home dose with hx of Afib)
[2019-05-01 12:02] LABS: White Blood Count 8.5 10^3/uL (3.5-10.8)
--- NOTE | 2019-05-01 15:29 | PN ---
Subjective Date of Service: 05/01/19 Interval History: Pt sitting up in bed, significant confusion but oriented to self. Denies any headache, lightheadedness, CP, SOB, N/V/D, difficulty urinating, unusual numbness/tingling. Family History: Unchanged from Admission Social History: Unchanged from Admission Past Medical History: Unchanged from Admission Objective Active Medications: Acetaminophen (Tylenol Tab*) 650 mg PO Q6H PRN PRN Reason: PAIN - MILD Last Admin: 05/01/19 12:08 Dose: 650 mg Allopurinol (Zyloprim Tab*) 200 mg PO DAILY [facility] Last Admin: 05/01/19 09:51 Dose: 200 mg Apixaban (Eliquis*) 2.5 mg PO BID [facility] Last Admin: 05/01/19 09:49 Dose: 2.5 mg Carbidopa/Levodopa (Sinemet 25/100 Tab(*)) 1 tab PO TID [facility] Last Admin: 05/01/19 12:08 Dose: 1 tab Cholecalciferol (Vitamin D Tab*) 1,000 units PO DAILY [facility] Last Admin: 05/01/19 09:52 Dose: 1,000 units Docusate Sodium (Colace Cap*) 100 mg PO BID PRN PRN Reason: CONSTIPATION Finasteride (Proscar Tab*) 5 mg PO DAILY [facility] Last Admin: 05/01/19 09:51 Dose: 5 mg Lactobacillus Rhamnosus (Lactobacillus Acidophilus*) 1 tab PO DAILY [facility] Last Admin: 05/01/19 09:52 Dose: 1 tab Magnesium Hydroxide (Milk Of Magnesia Liq*) 30 ml PO BID PRN PRN Reason: CONSTIPATION Morphine Sulfate (Morphine Inj (Syringe)*) 4 mg IV Q4H PRN PRN Reason: PAIN - SEVERE Last Admin: 04/29/19 09:48 Dose: 4 mg Oxycodone/Acetaminophen (Percocet 5/325 Tab*) 1 tab PO Q4H PRN PRN Reason: mild to moderate pain Last Admin: 05/01/19 01:02 Dose: 1 tab Polyethylene Glycol/Electrolytes (Miralax (17 Gm Dose Mannie)) 17 gm PO DAILY PRN PRN Reason: CONSTIPATION Senna (Senokot 8.6 Mg Tab*) 1 tab PO BEDTIME PRN PRN Reason: CONSTIPATION Sertraline HCl (Zoloft*) 50 mg PO DAILY [facility] Last Admin: 05/01/19 09:51 Dose: 50 mg Vital Signs - 8 hr 05/01/19 05/01/19 05/01/19 08:00 08:54 13:22 Temperature 98.2 F 98.3 F Pulse Rate 83 88 Respiratory 18 16 20 Rate Blood Pressure 104/57 98/56 (mmHg) O2 Sat by Pulse 97 96 93 Oximetry 05/01/19 05/01/19 14:39 14:54 Temperature 99.8 F Pulse Rate 95 Respiratory 24 Rate Blood Pressure 104/62 (mmHg) O2 Sat by Pulse 93 93 Oximetry Oxygen Devices in Use Now: Nasal Cannula - 1L O2 Appearance: Sitting up in bed, mildly lethargic, NAD Eyes: No Scleral Icterus, - - PERRL Ears/Nose/Mouth/Throat: Clear Oropharnyx Respiratory: Symmetrical Chest Expansion and Respiratory Effort - significant inspiratory and expiratory crackles noted to RLL, all other lobes clear but diminished, pt giving normal respiratory effort but not breathing deeply Cardiovascular: - - HR irregular, S1/S2 present, no murmurs, rubs or gallops Abdominal: NL Sounds; No Tenderness; No Distention Extremities: - - 2+ non-pitting to L thigh, 2+ pitting throughout remainder LLE , 1+ non-pitting throughout RLE. PPP 2+ bilaterally, able to wiggle toes, plantar/dorsiflexion intact bilaterally Skin: - - incision to L hip covered with dressing, CDI Neurological: - - easily awakened, appears to be mildly lethargic, oriented to self only. States normal sensation to L foot Nutrition: Taking PO's Result Diagrams: 05/01/19 07:55 04/28/19 04:10 Microbiology and Other Data: Microbiology 04/27/19 18:35 Urine Culture - Final Urine No Growth (<1,000 CFU/mL) Diagnostic Imaging: Order Information: CHEST AP/PORT Accession Number: [id number] CPT: 29851 HISTORY: fall, prostate cancer COMPARISONS: None relevant available at the time of dictation. VIEWS: 1: frontal AP view of the chest at 3:01 PM. The left costophrenic angle is cut off. FINDINGS: LINES AND TUBES: None. CARDIOMEDIASTINAL SILHOUETTE: The cardiomediastinal silhouette is normal for portable technique. PLEURA: The right costophrenic angle is sharp. The left costophrenic angle is cut off. LUNG PARENCHYMA: The lungs are clear. ABDOMEN: The upper abdomen is clear. There is no subphrenic gas. BONES AND SOFT TISSUES: No bone or soft tissue abnormalities are noted. IMPRESSION: LIMITED STUDY. NO ACTIVE CARDIOPULMONARY DISEASE. Order Information: TOE LEFT 5TH Accession Number: [id number] CPT: 22526 HISTORY: Rule out fracture COMPARISONS: None. Left fifth toe: 2 radiographs FINDINGS: A subtle discontinuity of the cortex noted at the level of the base of the proximal phalanx left fifth toe may represent an undisplaced fracture of the sacrum no other fracture is demonstrated IMPRESSION: QUESTIONABLE UNDISPLACED FRACTURE BASE OF THE PROXIMAL PHALANX LEFT FIFTH TOE EKG Data: ECG Report Patient Name ERICA AGUERO Birthdate 1930 Sex M Order Number [id number] Date of ECG 04/27/2019 15:13:25 Interpretation Sinus rhythm.normal P axis, V-rate 60- 99 Atrial premature complex.SV complex w/ short R-R interval Prolonged MS interval.MS >220, V-rate 50- 90 Inferior infarct, old.Q >35mS, II III aVF - ABNORMAL ECG - CHANGES SINCE THE PREVIOUS RECORD OF 12 Lead 02/19/2019 19:00:07: Prolonged MS interval. New Q wave in lead 3. Electronically signed on 04/27/2019 at 23:12 by Vidya Chamorro MD Assess/Plan/Problems-Billing Assessment: This is an 89 year old male with a PMH of parkinsonian symptoms, afib and TIA who was admitted on 04/27/19 s/p fall resulting in left femur fracture. - Patient Problems (1) Status post-operative repair of closed fracture of left hip Current Visit: Yes Status: Acute Code(s): Z98.890 - OTHER SPECIFIED POSTPROCEDURAL STATES; Z87.81 - PERSONAL HISTORY OF (HEALED) TRAUMATIC FRACTURE SNOMED Code(s): 018866068 Comment: Sustained a fracture from a standing height at home. 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 ORIF with 04/28. - Due to fracture from standing height, it was recommended he be given a one time dose of IV zoledronic acid to prevent further fracture, given 04/29 - incision management, abx and IVF per ortho (2) SIRS (systemic inflammatory response syndrome) Current Visit: Yes Status: Acute Code(s): R65.10 - SIRS OF NON-INFECTIOUS ORIGIN W/O ACUTE ORGAN DYSFUNCTION SNOMED Code(s): 419402614 Comment: Has HR in 90s, RR 24, very mild elevation in temp 99.8. WBC WNL this morning. Clinical findings and CXR consistent with atelectasis. Requiring 1L O2 at this time. Per nursing pt did not do well with IS teaching. If he spikes a fever or tachycardia or tachypnea worsens it would be reasonable to suspect infection and initiate sepsis bundle however I believe at this time that this response is in relation to atelectasis and not infection. Pt did also receive zoledronic acid yesterday which could have potential for acute influenza -like s/s - will continue to monitor - cbc in a.m. - encourage movement and incentive spirometry (3) Afib Current Visit: Yes Status: Acute Code(s): I48.91 - UNSPECIFIED ATRIAL FIBRILLATION SNOMED Code(s): 69132337 Comment: Is not on medication for rate control, SR per EKG, rate WNL with one noted at 104, may have been spike in relation to pain or activity - Apixaban restarted on 04/29 (4) BPH (benign prostatic hyperplasia) Current Visit: Yes Status: Acute Code(s): N40.0 - BENIGN PROSTATIC HYPERPLASIA WITHOUT LOWER URINRY TRACT SYMP SNOMED Code(s): 426680976 Comment: - Continue finesteride. (5) Depression Current Visit: Yes Status: Acute Code(s): F32.9 - MAJOR DEPRESSIVE DISORDER , SINGLE EPISODE, UNSPECIFIED SNOMED Code(s): 07107098 Comment: - Continue sertraline. (6) Gout Current Visit: Yes Status: Acute Code(s): M10.9 - GOUT, UNSPECIFIED SNOMED Code(s): 14225910 Comment: -Continue allopurinol. (7) TIA (obstructive sleep apnea) Current Visit: Yes Status: Acute Code(s): G47.33 - OBSTRUCTIVE SLEEP APNEA ( ADULT) (PEDIATRIC) SNOMED Code(s): 32683411 Comment: -Does not use a cpap. Suggest O2 supplementation in the overnight as needed. (8) Parkinson disease Current Visit: Yes Status: Acute Code(s): G20 - PARKINSON'S DISEASE SNOMED Code(s): 93726262 Comment: Continue sinimet (9) Prostate cancer Current Visit: Yes Status: Acute Code(s): C61 - MALIGNANT NEOPLASM OF PROSTATE SNOMED Code(s): 585698070 Comment: - Due to the potential for neutropenia, Xtandi on hold for surgery. Plan to f/u about this medication on an outpatient basis - Can f/u outpt with oncologist (10) DVT prophylaxis Current Visit: Yes Status: Acute Code(s): Z29.9 - ENCOUNTER FOR PROPHYLACTIC MEASURES, UNSPECIFIED SNOMED Code(s): 727981933 Comment: -Apixiban started 04/29, SCDs (11) DNR (do not resuscitate) Current Visit: Yes Status: Acute Comment: Confirmed with who is HCP Status and Disposition: Condition: guarded Dispo: Admit inpatient to [facility]. Attending: Antonia Morrison
[2019-05-02 06:16] LABS: ABS Eosinophils 0.4 10^3/ul (0-0.6); ABS Lymphocytes 0.5 10^3/ul (1.0-4.8); ABS Monocytes 0.4 10^3/ul (0-0.8); ABS Neutrophils 6.7 10^3/ul (1.5-7.7); Eosinophil % 4.9 %; Hematocrit 28 % (42-52); Hemoglobin 9.1 g/dL (14.0-18.0); Lymphocyte % 6.5 %; Mean Corpuscular HGB Conc 33 g/dL (31-36); Mean Corpuscular Hemoglobin 28 pg (27-31); Mean Corpuscular Volume 84 fL (80-94); Mean Platelet Volume 8.3 fL (7.4-10.4); Platelet Count 197 10^3/uL (150-450); Red Blood Count 3.27 10^6 /uL (4.18-5.48); Red Cell Distribution Width 16 % (10-15)
--- NOTE | 2019-05-02 08:24 | PN ---
Progress Note - Progress Note Date of Service: 05/02/19 SOAP: Subjective: POD #3 Left hip ORIF with cephalomedullary nail. Patient seen in bed, comfortable and sleeping. He is oriented to himself. Hip pain well managed with current medications. Denies CP, SOB, n/v, f/c. Patient waiting placement, PMRU to evaluate tomorrow. Objective: Vitals: Vital Signs Temp Pulse Resp BP Pulse Ox 100.2 F 70 16 102/56 98 05/02/19 07:41 05/02/19 07:41 05/02/19 07:41 05/02/19 07:41 05/02/19 07:41 Gen: A&O to self. NAD at rest laying in bed Left hip: Dressing C/D/I. thigh soft, NT. + f/e at ankle and MTPs. N/V intact Labs: Laboratory Last Values WBC 8.0 10^3/uL (3.5-10.8) 05/02/19 05:57 RBC 3.27 10^6 /uL (4.18-5.48) L 05/02/19 05:57 Hgb 9.1 g/dL (14.0-18.0) L 05/02/19 05:57 Hct 28 % (42-52) L 05/02/19 05:57 MCV 84 fL (80-94) 05/02/19 05:57 MCH 28 pg (27-31) 05/02/19 05:57 MCHC 33 g/dL (31-36) 05/02/19 05:57 RDW 16 % (10-15) H 05/02/19 05:57 Plt Count 197 10^3/uL (150-450) 05/02/19 05:57 MPV 8.3 fL (7.4-10.4) 05/02/19 05:57 Neut % (Auto) 83.7 % 05/02/19 05:57 Lymph % (Auto) 6.5 % 05/02/19 05:57 [place] % (Auto) 4.6 % 05/02/19 05:57 Eos % (Auto) 4.9 % 05/02/19 05:57 Baso % (Auto) 0.3 % 05/02/19 05:57 Absolute Neuts (auto) 6.7 10^3/ul (1.5-7.7) 05/02/19 05:57 Absolute Lymphs (auto) 0.5 10^3/ul (1.0-4.8) L 05/02/19 05:57 Absolute Monos (auto) 0.4 10^3/ul (0-0.8) 05/02/19 05:57 Absolute Eos (auto) 0.4 10^3/ul (0-0.6) 05/02/19 05:57 Absolute Basos (auto) 0.0 10^3/ul (0-0.2) 05/02/19 05:57 Absolute Nucleated RBC 0.0 10^3/ul 05/02/19 05:57 Nucleated RBC % 0.0 05/02/19 05:57 INR (Anticoag Therapy) 1.25 (0.82-1.09) H 04/29/19 05:59 APTT 31.2 seconds (26.0-38.0) 04/29/19 12:50 Sodium 137 mmol/L (135-145) 04/28/19 04:10 Potassium 4.0 mmol/L (3.5-5.0) 04/28/19 04:10 Chloride 103 mmol/L (101-111) 04/28/19 04:10 Carbon Dioxide 28 mmol/L (22-32) 04/28/19 04:10 Anion Gap 6 mmol/L (2-11) 04/28/19 04:10 BUN 30 mg/dL (6-24) H 04/28/19 04:10 Creatinine 1.00 mg/dL (0.67-1.17) 04/28/19 04:10 Est GFR ( Amer) 85.1 (>60) 04/28/19 04:10 Est GFR (Non-Af Amer) 70.4 (>60) 04/28/19 04:10 BUN/Creatinine Ratio 30.0 (8-20) H 04/28/19 04:10 Glucose 127 mg/dL (70-100) H 04/28/19 04:10 Calcium 9.1 mg/dL (8.6-10.3) 04/28/19 04:10 Total Bilirubin 0.50 mg/dL (0.2-1.0) 04/27/19 12:26 AST 33 U/L (13-39) 04/27/19 12:26 ALT 4 U/L (7-52) L 04/27/19 12:26 Alkaline Phosphatase 162 U/L (34-104) H 04/27/19 12:26 Total Protein 6.7 g/dL (6.4-8.9) 04/27/19 12:26 Albumin 4.0 g/dL (3.2-5.2) 04/27/19 12:26 Globulin 2.7 g/dL (2-4) 04/27/19 12:26 Albumin/Globulin Ratio 1.5 (1-3) 04/27/19 12:26 Urine Color Yellow 04/27/19 18:35 Urine Appearance Clear 04/27/19 18:35 Urine pH 5.0 (5-9) 04/27/19 18:35 Ur Specific [place] 1.026 (1.010-1.030) 04/27/19 18:35 Urine Protein Negative (Negative) 04/27/19 18:35 Urine Ketones Trace (Negative) A 04/27/19 18:35 Urine Blood 2+ (Negative) A 04/27/19 18:35 Urine Nitrate Negative (Negative) 04/27/19 18:35 Urine Bilirubin Negative (Negative) 04/27/19 18:35 Urine Urobilinogen Negative (Negative) 04/27/19 18:35 Ur Leukocyte Esterase Negative (Negative) 04/27/19 18:35 Urine WBC (Auto) Trace(0-5/hpf) (Absent) 04/27/19 18:35 Urine RBC (Auto) 2+(6-10/hpf) (Absent) A 04/27/19 18:35 Urine Bacteria Absent (Absent) 04/27/19 18:35 Urine Glucose Negative (Negative) 04/27/19 18:35 Blood Type O Positive 04/29/19 05:59 Antibody Screen Negative 04/29/19 05:59 Assessment: POD #3 Left hip ORIF Plan: Cont pain management as needed Cont PT/OT, PMRU consult tomorrow WBAT LLE with walker/assist Eliquis for DVT ppx (patient to resume home dose with hx of Afib)
[2019-05-02] MEDS: Cholecalciferol TAB* 1000 UNITS PO SCH (10:20)
[2019-05-02] MEDS: Acetaminophen TAB* 325 MG PO PRN ×2 (10:20→20:12)
[2019-05-02] MEDS: Lactobacillus Acidophilus* 1 TAB PO SCH (10:21)
[2019-05-02] MEDS: Carbidopa/Levodop 25/100 MG TAB(*) PO SCH ×3 (10:21→17:18)
[2019-05-02] MEDS: Sertraline* 50 MG TAB PO SCH (10:21)
[2019-05-02] MEDS: Finasteride TAB* 5 MG PO SCH (10:22)
[2019-05-02] MEDS: Apixaban* 2.5 MG TAB PO SCH ×2 (10:22→20:12)
[2019-05-02] MEDS: Allopurinol TAB* 100 MG PO SCH (10:22)
--- NOTE | 2019-05-02 14:29 | PN ---
Subjective Date of Service: 05/02/19 Interval History: Denies pain at this time. States a little SOB. Frequent dry coughing noted during exam. Seems slightly agitated when asked multiple questions. Denies any CISNEROS, CP, N/V/D, unusual numbness/tingling or swelling. Family History: Unchanged from Admission Social History: Unchanged from Admission Past Medical History: Unchanged from Admission Objective Active Medications: Acetaminophen (Tylenol Tab*) 650 mg PO Q6H PRN PRN Reason: PAIN - MILD Last Admin: 05/02/19 10:20 Dose: 650 mg Allopurinol (Zyloprim Tab*) 200 mg PO DAILY [facility] Last Admin: 05/02/19 10:22 Dose: 200 mg Apixaban (Eliquis*) 2.5 mg PO BID [facility] Last Admin: 05/02/19 10:22 Dose: 2.5 mg Carbidopa/Levodopa (Sinemet 25/100 Tab(*)) 1 tab PO TID [facility] Last Admin: 05/02/19 12:53 Dose: 1 tab Cholecalciferol (Vitamin D Tab*) 1,000 units PO DAILY [facility] Last Admin: 05/02/19 10:20 Dose: 1,000 units Docusate Sodium (Colace Cap*) 100 mg PO BID PRN PRN Reason: CONSTIPATION Last Admin: 05/02/19 10:21 Dose: 100 mg Finasteride (Proscar Tab*) 5 mg PO DAILY [facility] Last Admin: 05/02/19 10:22 Dose: 5 mg Lactobacillus Rhamnosus (Lactobacillus Acidophilus*) 1 tab PO DAILY [facility] Last Admin: 05/02/19 10:21 Dose: 1 tab Magnesium Hydroxide (Milk Of Magnesia Liq*) 30 ml PO BID PRN PRN Reason: CONSTIPATION Last Admin: 05/02/19 10:25 Dose: 30 ml Morphine Sulfate (Morphine Inj (Syringe)*) 4 mg IV Q4H PRN PRN Reason: PAIN - SEVERE Last Admin: 04/29/19 09:48 Dose: 4 mg Oxycodone/Acetaminophen (Percocet 5/325 Tab*) 1 tab PO Q4H PRN PRN Reason: mild to moderate pain Last Admin: 05/01/19 17:20 Dose: 1 tab Polyethylene Glycol/Electrolytes (Miralax (17 Gm Dose Mannie)) 17 gm PO DAILY PRN PRN Reason: CONSTIPATION Last Admin: 05/01/19 17:22 Dose: 17 gm Senna (Senokot 8.6 Mg Tab*) 1 tab PO BEDTIME PRN PRN Reason: CONSTIPATION Sertraline HCl (Zoloft*) 50 mg PO DAILY [facility] Last Admin: 05/02/19 10:21 Dose: 50 mg Vital Signs - 8 hr 05/02/19 05/02/19 05/02/19 07:41 10:52 10:58 Temperature 100.2 F Pulse Rate 70 Respiratory 16 20 20 Rate Blood Pressure 102/56 (mmHg) O2 Sat by Pulse 98 Oximetry 05/02/19 11:09 Temperature 97.9 F Pulse Rate 79 Respiratory 16 Rate Blood Pressure 103/59 (mmHg) O2 Sat by Pulse 97 Oximetry Oxygen Devices in Use Now: Nasal Cannula Appearance: Sitting up in bed, NAD Eyes: No Scleral Icterus, - - PERRL Ears/Nose/Mouth/Throat: Clear Oropharnyx Respiratory: Symmetrical Chest Expansion and Respiratory Effort, - - Inspiratory and expiratory crackles noted to BLL, all other lobes clear but slightly diminished Cardiovascular: - - HR irregular, S1/S2 present Abdominal: NL Sounds; No Tenderness; No Distention Extremities: - - trace non-pitting edema RLE, 2+ pitting edema LLE. PPP 2+ bilaterally. Neurological: - - Alert, oriented to person place and situation this morning Nutrition: Taking PO's Result Diagrams: 05/02/19 05:57 04/28/19 04:10 Microbiology and Other Data: Microbiology 04/27/19 18:35 Urine Culture - Final Urine No Growth (<1,000 CFU/mL) Diagnostic Imaging: Order Information: CHEST AP/PORT Accession Number: [id number] CPT: 04069 HISTORY: fall, prostate cancer COMPARISONS: None relevant available at the time of dictation. VIEWS: 1: frontal AP view of the chest at 3:01 PM. The left costophrenic angle is cut off. FINDINGS: LINES AND TUBES: None. CARDIOMEDIASTINAL SILHOUETTE: The cardiomediastinal silhouette is normal for portable technique. PLEURA: The right costophrenic angle is sharp. The left costophrenic angle is cut off. LUNG PARENCHYMA: The lungs are clear. ABDOMEN: The upper abdomen is clear. There is no subphrenic gas. BONES AND SOFT TISSUES: No bone or soft tissue abnormalities are noted. IMPRESSION: LIMITED STUDY. NO ACTIVE CARDIOPULMONARY DISEASE. Order Information: TOE LEFT 5TH Accession Number: [id number] CPT: 46030 HISTORY: Rule out fracture COMPARISONS: None. Left fifth toe: 2 radiographs FINDINGS: A subtle discontinuity of the cortex noted at the level of the base of the proximal phalanx left fifth toe may represent an undisplaced fracture of the sacrum no other fracture is demonstrated IMPRESSION: QUESTIONABLE UNDISPLACED FRACTURE BASE OF THE PROXIMAL PHALANX LEFT FIFTH TOE EKG Data: ECG Report Patient Name ERICA AGUERO Birthdate 1930 Sex M Order Number [id number] Date of ECG 04/27/2019 15:13:25 Interpretation Sinus rhythm.normal P axis, V-rate 60- 99 Atrial premature complex.SV complex w/ short R-R interval Prolonged WA interval.WA >220, V-rate 50- 90 Inferior infarct, old.Q >35mS, II III aVF - ABNORMAL ECG - CHANGES SINCE THE PREVIOUS RECORD OF 12 Lead 02/19/2019 19:00:07: Prolonged WA interval. New Q wave in lead 3. Electronically signed on 04/27/2019 at 23:12 by Vidya Chamorro MD Assess/Plan/Problems-Billing Assessment: This is an 89 year old male with a PMH of parkinsonian symptoms, afib and TIA who was admitted on 04/27/19 s/p fall resulting in left femur fracture. - Patient Problems (1) Status post-operative repair of closed fracture of left hip Current Visit: Yes Status: Acute Code(s): Z98.890 - OTHER SPECIFIED POSTPROCEDURAL STATES; Z87.81 - PERSONAL HISTORY OF (HEALED) TRAUMATIC FRACTURE SNOMED Code(s): 153299717 Comment: Sustained a fracture from a standing height at home. 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 ORIF with 04/28. - Due to fracture from standing height, it was recommended he be given a one time dose of IV zoledronic acid to prevent further fracture, given 04/29 - incision management, abx and IVF per ortho (2) SIRS (systemic inflammatory response syndrome) Current Visit: Yes Status: Acute Code(s): R65.10 - SIRS OF NON-INFECTIOUS ORIGIN W/O ACUTE ORGAN DYSFUNCTION SNOMED Code(s): 083911437 Comment: HR in 90s, RR 24, very mild elevation in temp 99.8 on 04/30. Temp 100.0 this morning which has since normalized. HR, RR WNL. WBC remain WNL. Clinical findings and CXR consistent with atelectasis. Continues to require O2. Per nursing pt did not do well with IS teaching. If he spikes a significant fever or tachycardia or tachypnea worsens it would be reasonable to suspect infection and initiate sepsis bundle however I believe at this time that this response is in relation to atelectasis and not infection. Pt did also receive zoledronic acid on 04/29 which could have potential for acute influenza-like s/s - will continue to monitor - cbc in a.m. - encourage movement, CDB, incentive spirometry (3) Afib Current Visit: Yes Status: Acute Code(s): I48.91 - UNSPECIFIED ATRIAL FIBRILLATION SNOMED Code(s): 62027415 Comment: Is not on medication for rate control, SR per EKG, rate WNL with one noted at 104, may have been spike in relation to pain or activity - Apixaban restarted on 04/29 (4) BPH (benign prostatic hyperplasia) Current Visit: Yes Status: Acute Code(s): N40.0 - BENIGN PROSTATIC HYPERPLASIA WITHOUT LOWER URINRY TRACT SYMP SNOMED Code(s): 451622057 Comment: - Continue finesteride. (5) Depression Current Visit: Yes Status: Acute Code(s): F32.9 - MAJOR DEPRESSIVE DISORDER , SINGLE EPISODE, UNSPECIFIED SNOMED Code(s): 84113918 Comment: - Continue sertraline. (6) Gout Current Visit: Yes Status: Acute Code(s): M10.9 - GOUT, UNSPECIFIED SNOMED Code(s): 40003747 Comment: -Continue allopurinol. (7) TIA (obstructive sleep apnea) Current Visit: Yes Status: Acute Code(s): G47.33 - OBSTRUCTIVE SLEEP APNEA ( ADULT) (PEDIATRIC) SNOMED Code(s): 56744039 Comment: -Does not use a cpap. Suggest O2 supplementation in the overnight as needed. (8) Parkinson disease Current Visit: Yes Status: Acute Code(s): G20 - PARKINSON'S DISEASE SNOMED Code(s): 82058060 Comment: Continue sinimet (9) Prostate cancer Current Visit: Yes Status: Acute Code(s): C61 - MALIGNANT NEOPLASM OF PROSTATE SNOMED Code(s): 600263205 Comment: - Due to the potential for neutropenia, Xtandi on hold for surgery. Plan to f/u about this medication on an outpatient basis - Can f/u outpt with oncologist (10) DVT prophylaxis Current Visit: Yes Status: Acute Code(s): Z29.9 - ENCOUNTER FOR PROPHYLACTIC MEASURES, UNSPECIFIED SNOMED Code(s): 739835857 Comment: -Apixiban started 04/29, SCDs (11) DNR (do not resuscitate) Current Visit: Yes Status: Acute Comment: Confirmed with who is HCP Status and Disposition: Condition: improving Dispo: Admit inpatient to [facility]. Attending: Antonia Morrison
[2019-05-03 04:45] LABS: ABS Eosinophils 0.6 10^3/ul (0-0.6); ABS Lymphocytes 0.6 10^3/ul (1.0-4.8); ABS Monocytes 0.5 10^3/ul (0-0.8); ABS Neutrophils 5.8 10^3/ul (1.5-7.7); Hematocrit 28 % (42-52); Hemoglobin 9.4 g/dL (14.0-18.0); Lymphocyte % 7.9 %; Mean Corpuscular HGB Conc 33 g/dL (31-36); Mean Corpuscular Hemoglobin 28 pg (27-31); Mean Corpuscular Volume 84 fL (80-94); Mean Platelet Volume 8.8 fL (7.4-10.4); Platelet Count 186 10^3/uL (150-450); Red Blood Count 3.34 10^6 /uL (4.18-5.48); Red Cell Distribution Width 16 % (10-15); White Blood Count 7.5 10^3/uL (3.5-10.8)
[2019-05-03] MEDS: Acetaminophen TAB* 325 MG PO PRN ×3 (08:53→21:54)
[2019-05-03] MEDS: Carbidopa/Levodop 25/100 MG TAB(*) PO SCH ×3 (08:53→17:42)
[2019-05-03] MEDS: Allopurinol TAB* 100 MG PO SCH (08:56)
[2019-05-03] MEDS: Finasteride TAB* 5 MG PO SCH (08:56)
[2019-05-03] MEDS: Sertraline* 50 MG TAB PO SCH (08:56)
[2019-05-03] MEDS: Cholecalciferol TAB* 1000 UNITS PO SCH (08:56)
[2019-05-03] MEDS: Lactobacillus Acidophilus* 1 TAB PO SCH (08:56)
[2019-05-03] MEDS: Apixaban* 2.5 MG TAB PO SCH ×2 (08:56→19:47)
--- NOTE | 2019-05-03 14:40 | PN ---
Progress Note - Progress Note Date of Service: 05/03/19 SOAP: Subjective: []Patient seen at bedside. He is feeling well without CP, SOB, dizziness, nausea. L hip pain well controlled. Objective: []Gen: NAD LLE: Left hip dressing with mild serosanguinous drainage, dressing changed, incision CDI, thigh soft, DF/PF intact, dp2+, sensation intact to light touch distally Calves supple and nontender without erythema, edema or palpable cords Assessment: []POD #4 Left hip ORIF Plan: Cont pain management as needed Cont PT/OT, PMRU bed offer awaiting ins WBAT LLE with walker/assist Eliquis for DVT ppx (home dose with hx of Afib) Vital Signs Temp 98.3 F 05/03/19 11:33 Pulse 64 05/03/19 11:33 Resp 12 05/03/19 11:33 BP 95/52 05/03/19 11:33 Pulse Ox 92 05/03/19 11:33 Intake & Output 05/02/19 05/03/19 05/03/19 18:59 06:59 18:59 Intake Total 870 500 560 Output Total 350 800 Balance 520 -300 560 Intake: Oral 870 500 560 Output: Urine 800 [place] 350 Other: # Bowel Movements 1 Estimated Stool Amount Large Laboratory Last Values WBC 7.5 10^3/uL (3.5-10.8) 05/03/19 04:05 RBC 3.34 10^6 /uL (4.18-5.48) L 05/03/19 04:05 Hgb 9.4 g/dL (14.0-18.0) L 05/03/19 04:05 Hct 28 % (42-52) L 05/03/19 04:05 MCV 84 fL (80-94) 05/03/19 04:05 MCH 28 pg (27-31) 05/03/19 04:05 MCHC 33 g/dL (31-36) 05/03/19 04:05 RDW 16 % (10-15) H 05/03/19 04:05 Plt Count 186 10^3/uL (150-450) 05/03/19 04:05 MPV 8.8 fL (7.4-10.4) 05/03/19 04:05 Neut % (Auto) 77.2 % 05/03/19 04:05 Lymph % (Auto) 7.9 % 05/03/19 04:05 [place] % (Auto) 6.6 % 05/03/19 04:05 Eos % (Auto) 8.0 % 05/03/19 04:05 Baso % (Auto) 0.3 % 05/03/19 04:05 Absolute Neuts (auto) 5.8 10^3/ul (1.5-7.7) 05/03/19 04:05 Absolute Lymphs (auto) 0.6 10^3/ul (1.0-4.8) L 05/03/19 04:05 Absolute Monos (auto) 0.5 10^3/ul (0-0.8) 05/03/19 04:05 Absolute Eos (auto) 0.6 10^3/ul (0-0.6) 05/03/19 04:05 Absolute Basos (auto) 0.0 10^3/ul (0-0.2) 05/03/19 04:05 Absolute Nucleated RBC 0.0 10^3/ul 05/03/19 04:05 Nucleated RBC % 0.0 05/03/19 04:05 INR (Anticoag Therapy) 1.25 (0.82-1.09) H 04/29/19 05:59 APTT 31.2 seconds (26.0-38.0) 04/29/19 12:50 Sodium 137 mmol/L (135-145) 04/28/19 04:10 Potassium 4.0 mmol/L (3.5-5.0) 04/28/19 04:10 Chloride 103 mmol/L (101-111) 04/28/19 04:10 Carbon Dioxide 28 mmol/L (22-32) 04/28/19 04:10 Anion Gap 6 mmol/L (2-11) 04/28/19 04:10 BUN 30 mg/dL (6-24) H 04/28/19 04:10 Creatinine 1.00 mg/dL (0.67-1.17) 04/28/19 04:10 Est GFR ( Amer) 85.1 (>60) 04/28/19 04:10 Est GFR (Non-Af Amer) 70.4 (>60) 04/28/19 04:10 BUN/Creatinine Ratio 30.0 (8-20) H 04/28/19 04:10 Glucose 127 mg/dL (70-100) H 04/28/19 04:10 Calcium 9.1 mg/dL (8.6-10.3) 04/28/19 04:10 Total Bilirubin 0.50 mg/dL (0.2-1.0) 04/27/19 12:26 AST 33 U/L (13-39) 04/27/19 12:26 ALT 4 U/L (7-52) L 04/27/19 12:26 Alkaline Phosphatase 162 U/L (34-104) H 04/27/19 12:26 Total Protein 6.7 g/dL (6.4-8.9) 04/27/19 12:26 Albumin 4.0 g/dL (3.2-5.2) 04/27/19 12:26 Globulin 2.7 g/dL (2-4) 04/27/19 12:26 Albumin/Globulin Ratio 1.5 (1-3) 04/27/19 12:26 Urine Color Yellow 04/27/19 18:35 Urine Appearance Clear 04/27/19 18:35 Urine pH 5.0 (5-9) 04/27/19 18:35 Ur Specific [place] 1.026 (1.010-1.030) 04/27/19 18:35 Urine Protein Negative (Negative) 04/27/19 18:35 Urine Ketones Trace (Negative) A 04/27/19 18:35 Urine Blood 2+ (Negative) A 04/27/19 18:35 Urine Nitrate Negative (Negative) 04/27/19 18:35 Urine Bilirubin Negative (Negative) 04/27/19 18:35 Urine Urobilinogen Negative (Negative) 04/27/19 18:35 Ur Leukocyte Esterase Negative (Negative) 04/27/19 18:35 Urine WBC (Auto) Trace(0-5/hpf) (Absent) 04/27/19 18:35 Urine RBC (Auto) 2+(6-10/hpf) (Absent) A 04/27/19 18:35 Urine Bacteria Absent (Absent) 04/27/19 18:35 Urine Glucose Negative (Negative) 04/27/19 18:35 Blood Type O Positive 04/29/19 05:59 Antibody Screen Negative 04/29/19 05:59
[2019-05-03] MEDS ORDERED: traMADol TAB* 50 MG PO PRN (17:27)
--- NOTE | 2019-05-03 17:33 | PN ---
Subjective Date of Service: 05/03/19 Interval History: Pt laying in bed, sleepy, easily awoken with very mild tactile stimulation but wanted to continue sleeping. Denied headache, CP, SOB, N/V/D, dysuria, pain, numbness/tingling. He was able to maintain O2 SAT 94-97% on RA during assessment. Family History: Unchanged from Admission Social History: Unchanged from Admission Past Medical History: Unchanged from Admission Objective Active Medications: Acetaminophen (Tylenol Tab*) 650 mg PO Q6H PRN PRN Reason: PAIN - MILD Last Admin: 05/03/19 15:21 Dose: 650 mg Allopurinol (Zyloprim Tab*) 200 mg PO DAILY [facility] Last Admin: 05/03/19 08:56 Dose: 200 mg Apixaban (Eliquis*) 2.5 mg PO BID [facility] Last Admin: 05/03/19 08:56 Dose: 2.5 mg Carbidopa/Levodopa (Sinemet 25/100 Tab(*)) 1 tab PO TID [facility] Last Admin: 05/03/19 13:06 Dose: 1 tab Cholecalciferol (Vitamin D Tab*) 1,000 units PO DAILY [facility] Last Admin: 05/03/19 08:56 Dose: 1,000 units Docusate Sodium (Colace Cap*) 100 mg PO BID PRN PRN Reason: CONSTIPATION Last Admin: 05/02/19 10:21 Dose: 100 mg Finasteride (Proscar Tab*) 5 mg PO DAILY [facility] Last Admin: 05/03/19 08:56 Dose: 5 mg Lactobacillus Rhamnosus (Lactobacillus Acidophilus*) 1 tab PO DAILY [facility] Last Admin: 05/03/19 08:56 Dose: 1 tab Magnesium Hydroxide (Milk Of Magnesia Liq*) 30 ml PO BID PRN PRN Reason: CONSTIPATION Last Admin: 05/02/19 10:25 Dose: 30 ml Polyethylene Glycol/Electrolytes (Miralax (17 Gm Dose Mannie)) 17 gm PO DAILY PRN PRN Reason: CONSTIPATION Last Admin: 05/01/19 17:22 Dose: 17 gm Senna (Senokot 8.6 Mg Tab*) 1 tab PO BEDTIME PRN PRN Reason: CONSTIPATION Sertraline HCl (Zoloft*) 50 mg PO DAILY [facility] Last Admin: 05/03/19 08:56 Dose: 50 mg Tramadol HCl (Ultram*) 50 mg PO Q6H PRN PRN Reason: PAIN - MODERATE Vital Signs - 8 hr 05/03/19 05/03/19 05/03/19 11:09 11:33 14:59 Temperature 98 F 98.3 F 98.7 F Pulse Rate 85 64 71 Respiratory 16 12 14 Rate Blood Pressure 100/52 95/52 91/50 (mmHg) O2 Sat by Pulse 92 94 Oximetry 05/03/19 16:07 Temperature 97.9 F Pulse Rate 68 Respiratory 16 Rate Blood Pressure 94/53 (mmHg) O2 Sat by Pulse 97 Oximetry Appearance: Laying in bed, sleepy, NAD Respiratory: Symmetrical Chest Expansion and Respiratory Effort, - - fine crackles to LLL, all other lobes clear Cardiovascular: - - HR irregular, S1/S2 present, no murmur, rubs, or gallops noted Extremities: - - trace pitting edema RLE, mild pitting edema throughout LLE Skin: - - incision to L hip covered with CDI dressing Neurological: - - drowsy, oriented to self Nutrition: Taking PO's Result Diagrams: 05/03/19 04:05 04/28/19 04:10 Microbiology and Other Data: Microbiology 04/27/19 18:35 Urine Culture - Final Urine No Growth (<1,000 CFU/mL) Diagnostic Imaging: Order Information: CHEST AP/PORT Accession Number: [id number] CPT: 07537 HISTORY: fall, prostate cancer COMPARISONS: None relevant available at the time of dictation. VIEWS: 1: frontal AP view of the chest at 3:01 PM. The left costophrenic angle is cut off. FINDINGS: LINES AND TUBES: None. CARDIOMEDIASTINAL SILHOUETTE: The cardiomediastinal silhouette is normal for portable technique. PLEURA: The right costophrenic angle is sharp. The left costophrenic angle is cut off. LUNG PARENCHYMA: The lungs are clear. ABDOMEN: The upper abdomen is clear. There is no subphrenic gas. BONES AND SOFT TISSUES: No bone or soft tissue abnormalities are noted. IMPRESSION: LIMITED STUDY. NO ACTIVE CARDIOPULMONARY DISEASE. Order Information: TOE LEFT 5TH Accession Number: [id number] CPT: 84357 HISTORY: Rule out fracture COMPARISONS: None. Left fifth toe: 2 radiographs FINDINGS: A subtle discontinuity of the cortex noted at the level of the base of the proximal phalanx left fifth toe may represent an undisplaced fracture of the sacrum no other fracture is demonstrated IMPRESSION: QUESTIONABLE UNDISPLACED FRACTURE BASE OF THE PROXIMAL PHALANX LEFT FIFTH TOE EKG Data: ECG Report Patient Name ERICA AGUERO Birthdate 1930 Sex M Order Number [id number] Date of ECG 04/27/2019 15:13:25 Interpretation Sinus rhythm.normal P axis, V-rate 60- 99 Atrial premature complex.SV complex w/ short R-R interval Prolonged LA interval.LA >220, V-rate 50- 90 Inferior infarct, old.Q >35mS, II III aVF - ABNORMAL ECG - CHANGES SINCE THE PREVIOUS RECORD OF 12 Lead 02/19/2019 19:00:07: Prolonged LA interval. New Q wave in lead 3. Electronically signed on 04/27/2019 at 23:12 by Vidya Chamorro MD Assess/Plan/Problems-Billing Assessment: This is an 89 year old male with a PMH of parkinsonian symptoms, afib and TIA who was admitted on 04/27/19 s/p fall resulting in left femur fracture. - Patient Problems (1) Status post-operative repair of closed fracture of left hip Current Visit: Yes Status: Acute Code(s): Z98.890 - OTHER SPECIFIED POSTPROCEDURAL STATES; Z87.81 - PERSONAL HISTORY OF (HEALED) TRAUMATIC FRACTURE SNOMED Code(s): 142859325 Comment: Sustained a fracture from a standing height at home. 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 ORIF with 04/28. - Due to fracture from standing height, it was recommended he be given a one time dose of IV zoledronic acid to prevent further fracture, given 04/29 - incision management, abx and IVF per ortho (2) SIRS (systemic inflammatory response syndrome) Current Visit: Yes Status: Acute Code(s): R65.10 - SIRS OF NON-INFECTIOUS ORIGIN W/O ACUTE ORGAN DYSFUNCTION SNOMED Code(s): 967102946 Comment: Has resolved - will continue to monitor - cbc in a.m. - continue to encourage movement, CDB, incentive spirometry (3) Afib Current Visit: Yes Status: Acute Code(s): I48.91 - UNSPECIFIED ATRIAL FIBRILLATION SNOMED Code(s): 49227346 Comment: Is not on medication for rate control, rate stable, SR per EKG - Apixaban restarted on 04/29 (4) BPH (benign prostatic hyperplasia) Current Visit: Yes Status: Acute Code(s): N40.0 - BENIGN PROSTATIC HYPERPLASIA WITHOUT LOWER URINRY TRACT SYMP SNOMED Code(s): 502973482 Comment: - Continue finesteride. (5) Depression Current Visit: Yes Status: Acute Code(s): F32.9 - MAJOR DEPRESSIVE DISORDER , SINGLE EPISODE, UNSPECIFIED SNOMED Code(s): 02555547 Comment: - Continue sertraline. (6) Gout Current Visit: Yes Status: Acute Code(s): M10.9 - GOUT, UNSPECIFIED SNOMED Code(s): 21098526 Comment: -Continue allopurinol. (7) TIA (obstructive sleep apnea) Current Visit: Yes Status: Acute Code(s): G47.33 - OBSTRUCTIVE SLEEP APNEA ( ADULT) (PEDIATRIC) SNOMED Code(s): 06518180 Comment: -Does not use a cpap. Suggest O2 supplementation in the overnight as needed. (8) Parkinson disease Current Visit: Yes Status: Acute Code(s): G20 - PARKINSON'S DISEASE SNOMED Code(s): 28195477 Comment: Continue sinimet (9) Prostate cancer Current Visit: Yes Status: Acute Code(s): C61 - MALIGNANT NEOPLASM OF PROSTATE SNOMED Code(s): 791560935 Comment: - Due to the potential for neutropenia, Xtandi on hold for surgery. Plan to f/u about this medication on an outpatient basis - Can f/u outpt with oncologist (10) DVT prophylaxis Current Visit: Yes Status: Acute Code(s): Z29.9 - ENCOUNTER FOR PROPHYLACTIC MEASURES, UNSPECIFIED SNOMED Code(s): 476666099 Comment: -Apixiban started 04/29, SCDs (11) DNR (do not resuscitate) Current Visit: Yes Status: Acute Status and Disposition: Condition: improving Dispo: Admit inpatient to [facility]. Attending: Antonia Morrison
[2019-05-04] MEDS: Carbidopa/Levodop 25/100 MG TAB(*) PO SCH ×3 (09:52→17:47)
[2019-05-04] MEDS: Cholecalciferol TAB* 1000 UNITS PO SCH (09:52)
[2019-05-04] MEDS: Lactobacillus Acidophilus* 1 TAB PO SCH (09:52)
[2019-05-04] MEDS: Apixaban* 2.5 MG TAB PO SCH ×2 (09:52→21:40)
[2019-05-04] MEDS: Finasteride TAB* 5 MG PO SCH (09:52)
[2019-05-04] MEDS: Allopurinol TAB* 100 MG PO SCH (09:52)
[2019-05-04] MEDS: Sertraline* 50 MG TAB PO SCH (09:52)
--- NOTE | 2019-05-04 09:56 | PN ---
Progress Note - Progress Note Date of Service: 05/04/19 SOAP: Subjective: Patient seen at bedside. He is feeling well without CP, SOB, dizziness, nausea. L hip pain well controlled. Objective: []Gen: NAD LLE: Left hip dressing with mild serosanguinous drainage, dressing changed, incision CDI, thigh soft, DF/PF intact, dp2+, sensation intact to light touch distally Calves supple and nontender without erythema, edema or palpable cords Vital Signs Temp 98.7 F 05/04/19 08:32 Pulse 72 05/04/19 08:25 Resp 20 05/04/19 09:37 BP 97/58 05/04/19 08:25 Pulse Ox 96 05/04/19 08:25 Intake & Output 05/03/19 05/04/19 05/04/19 18:59 06:59 18:59 Intake Total 560 920 Output Total 500 Balance 560 420 Intake: Oral 560 920 Output: Urine 500 Other: # Bowel Movements 1 Estimated Stool Amount Large Assessment: []POD #5 Left hip ORIF Plan: Cont pain management as needed Cont PT/OT, PMRU bed offer awaiting ins WBAT LLE with walker/assist Eliquis for DVT ppx (home dose with hx of Afib)
--- NOTE | 2019-05-04 13:36 | PN ---
Subjective Date of Service: 05/04/19 Interval History: No acute events overnight. Afebrile. Family History: Unchanged from Admission Social History: Unchanged from Admission Past Medical History: Unchanged from Admission Objective Active Medications: Acetaminophen (Tylenol Tab*) 650 mg PO Q6H PRN PRN Reason: PAIN - MILD Last Admin: 05/03/19 21:54 Dose: 650 mg Allopurinol (Zyloprim Tab*) 200 mg PO DAILY [facility] Last Admin: 05/04/19 09:52 Dose: 200 mg Apixaban (Eliquis*) 2.5 mg PO BID [facility] Last Admin: 05/04/19 09:52 Dose: 2.5 mg Carbidopa/Levodopa (Sinemet 25/100 Tab(*)) 1 tab PO TID PC [facility] Last Admin: 05/04/19 09:52 Dose: 1 tab Cholecalciferol (Vitamin D Tab*) 1,000 units PO DAILY [facility] Last Admin: 05/04/19 09:52 Dose: 1,000 units Docusate Sodium (Colace Cap*) 100 mg PO BID PRN PRN Reason: CONSTIPATION Last Admin: 05/02/19 10:21 Dose: 100 mg Finasteride (Proscar Tab*) 5 mg PO DAILY [facility] Last Admin: 05/04/19 09:52 Dose: 5 mg Lactobacillus Rhamnosus (Lactobacillus Acidophilus*) 1 tab PO DAILY [facility] Last Admin: 05/04/19 09:52 Dose: 1 tab Magnesium Hydroxide (Milk Of Magnesia Liq*) 30 ml PO BID PRN PRN Reason: CONSTIPATION Last Admin: 05/02/19 10:25 Dose: 30 ml Polyethylene Glycol/Electrolytes (Miralax (17 Gm Dose Mannie)) 17 gm PO DAILY PRN PRN Reason: CONSTIPATION Last Admin: 05/01/19 17:22 Dose: 17 gm Senna (Senokot 8.6 Mg Tab*) 1 tab PO BEDTIME PRN PRN Reason: CONSTIPATION Sertraline HCl (Zoloft*) 50 mg PO DAILY [facility] Last Admin: 05/04/19 09:52 Dose: 50 mg Tramadol HCl (Ultram*) 50 mg PO Q6H PRN PRN Reason: PAIN - MODERATE Vital Signs - 8 hr 05/04/19 05/04/19 05/04/19 08:25 08:32 09:37 Temperature 98.7 F Pulse Rate 72 Respiratory 20 20 Rate Blood Pressure 97/58 (mmHg) O2 Sat by Pulse 96 Oximetry 05/04/19 12:17 Temperature 98.3 F Pulse Rate 89 Respiratory 22 Rate Blood Pressure 100/50 (mmHg) O2 Sat by Pulse 96 Oximetry Oxygen Devices in Use Now: None Appearance: NAD Eyes: No Scleral Icterus Ears/Nose/Mouth/Throat: NL Teeth, Lips, Gums Respiratory: Symmetrical Chest Expansion and Respiratory Effort, Clear to Auscultation Cardiovascular: NL Sounds; No Murmurs; No JVD, - - 1-2+ edema in right foot Abdominal: NL Sounds; No Tenderness; No Distention, No Hepatosplenomegaly Neurological: Alert and Oriented x 3 Nutrition: Taking PO's Result Diagrams: 05/03/19 04:05 04/28/19 04:10 Microbiology and Other Data: Microbiology 04/27/19 18:35 Urine Urine Culture - Final No Growth (<1,000 CFU/mL) Diagnostic Imaging: Order Information: CHEST AP/PORT Accession Number: [id number] CPT: 24346 HISTORY: fall, prostate cancer COMPARISONS: None relevant available at the time of dictation. VIEWS: 1: frontal AP view of the chest at 3:01 PM. The left costophrenic angle is cut off. FINDINGS: LINES AND TUBES: None. CARDIOMEDIASTINAL SILHOUETTE: The cardiomediastinal silhouette is normal for portable technique. PLEURA: The right costophrenic angle is sharp. The left costophrenic angle is cut off. LUNG PARENCHYMA: The lungs are clear. ABDOMEN: The upper abdomen is clear. There is no subphrenic gas. BONES AND SOFT TISSUES: No bone or soft tissue abnormalities are noted. IMPRESSION: LIMITED STUDY. NO ACTIVE CARDIOPULMONARY DISEASE. Order Information: TOE LEFT 5TH Accession Number: [id number] CPT: 37803 HISTORY: Rule out fracture COMPARISONS: None. Left fifth toe: 2 radiographs FINDINGS: A subtle discontinuity of the cortex noted at the level of the base of the proximal phalanx left fifth toe may represent an undisplaced fracture of the sacrum no other fracture is demonstrated IMPRESSION: QUESTIONABLE UNDISPLACED FRACTURE BASE OF THE PROXIMAL PHALANX LEFT FIFTH TOE EKG Data: ECG Report Patient Name ERICA AGUERO Birthdate 1930 Sex M Order Number [id number] Date of ECG 04/27/2019 15:13:25 Interpretation Sinus rhythm.normal P axis, V-rate 60- 99 Atrial premature complex.SV complex w/ short R-R interval Prolonged KS interval.KS >220, V-rate 50- 90 Inferior infarct, old.Q >35mS, II III aVF - ABNORMAL ECG - CHANGES SINCE THE PREVIOUS RECORD OF 12 Lead 02/19/2019 19:00:07: Prolonged KS interval. New Q wave in lead 3. Electronically signed on 04/27/2019 at 23:12 by Vidya Chamorro MD Assess/Plan/Problems-Billing Assessment: 89 year old male with a PMH of metastatic prostate cancer (currently on Xtandi) , parkinsonian symptoms, afib and TIA who was admitted on 04/27/19 s/p fall resulting in left femur fracture. - Patient Problems (1) Status post-operative repair of closed fracture of left hip Current Visit: Yes Status: Acute Code(s): Z98.890 - OTHER SPECIFIED POSTPROCEDURAL STATES; Z87.81 - PERSONAL HISTORY OF (HEALED) TRAUMATIC FRACTURE SNOMED Code(s): 106114681 Comment: Sustained a fracture from a standing height at home. s/[ ORIF with 04/28. - Due to fracture from standing height, it was recommended he be given a one time dose of IV zoledronic acid to prevent further fracture, given 04/29 - appreciate ortho - continue PT he is from [place]. (2) Chronic diastolic (congestive) heart failure Current Visit: Yes Status: Acute Code(s): I50.32 - CHRONIC DIASTOLIC ( CONGESTIVE) HEART FAILURE SNOMED Code(s): 995292352 Comment: ECHO 04/26 with grade 1 diastolic dysfunction. pEF 55-60%, no significant valvular pathology (mild TVR) Talked to who relates concern about b/l (L>R) lower extremity swelling for about a year but worse over the last few weeks prior to admission. some L>R swelling. add daily weights. BNP with CBC, BMP. has been held off his recently started lasix 20mg daily (likely due to soft BPs) , restart as able. if goes into Afib RVR would exacerbate (3) Afib Current Visit: Yes Status: Acute Code(s): I48.91 - UNSPECIFIED ATRIAL FIBRILLATION SNOMED Code(s): 92066464 Comment: Is not on medication for rate control, rate stable, SR per EKG - Apixaban restarted on 04/29 (4) BPH (benign prostatic hyperplasia) Current Visit: Yes Status: Acute Code(s): N40.0 - BENIGN PROSTATIC HYPERPLASIA WITHOUT LOWER URINRY TRACT SYMP SNOMED Code(s): 591707468 Comment: - Continue finesteride. (5) DVT prophylaxis Current Visit: Yes Status: Acute Code(s): Z29.9 - ENCOUNTER FOR PROPHYLACTIC MEASURES, UNSPECIFIED SNOMED Code(s): 247100447 Comment: -Apixiban started 04/29, SCDs (6) Depression Current Visit: Yes Status: Acute Code(s): F32.9 - MAJOR DEPRESSIVE DISORDER , SINGLE EPISODE, UNSPECIFIED SNOMED Code(s): 23453609 Comment: - Continue sertraline. (7) Gout Current Visit: Yes Status: Acute Code(s): M10.9 - GOUT, UNSPECIFIED SNOMED Code(s): 03285994 Comment: -Continue allopurinol. (8) TIA (obstructive sleep apnea) Current Visit: Yes Status: Acute Code(s): G47.33 - OBSTRUCTIVE SLEEP APNEA ( ADULT) (PEDIATRIC) SNOMED Code(s): 65181981 Comment: -Does not use a cpap. Suggest O2 supplementation in the overnight as needed. 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 Plan to f/u about this medication on an outpatient basis Status and Disposition: Dispo: medicine inpatient, awaiting potential PMRU (insurance auth pending)
[2019-05-04 15:37] LABS: ABS Eosinophils 0.4 10^3/ul (0-0.6); ABS Lymphocytes 0.6 10^3/ul (1.0-4.8); ABS Monocytes 0.5 10^3/ul (0-0.8); ABS Neutrophils 6.9 10^3/ul (1.5-7.7); Eosinophil % 4.9 %; Hematocrit 29 % (42-52); Hemoglobin 9.5 g/dL (14.0-18.0); Lymphocyte % 6.7 %; Mean Corpuscular HGB Conc 33 g/dL (31-36); Mean Corpuscular Hemoglobin 28 pg (27-31); Mean Corpuscular Volume 84 fL (80-94); Mean Platelet Volume 8.7 fL (7.4-10.4); Platelet Count 249 10^3/uL (150-450); Red Blood Count 3.41 10^6 /uL (4.18-5.48); Red Cell Distribution Width 16 % (10-15); White Blood Count 8.4 10^3/uL (3.5-10.8)
[2019-05-04] MEDS: Acetaminophen TAB* 325 MG PO PRN ×2 (15:38→21:40)
[2019-05-04 15:53] LABS: BUN/Creatinine Ratio 30.5 (8-20); Calcium 7.6 mg/dL (8.6-10.3); EGFR African American 90.3 (>60); EGFR Non-African American 74.6 (>60); Potassium 4.4 mmol/L (3.5-5.0)
[2019-05-05] MEDS: Cholecalciferol TAB* 1000 UNITS PO SCH (09:42)
[2019-05-05] MEDS: Allopurinol TAB* 100 MG PO SCH (09:42)
[2019-05-05] MEDS: Acetaminophen TAB* 325 MG PO PRN (09:42)
[2019-05-05] MEDS: Apixaban* 2.5 MG TAB PO SCH (09:42)
[2019-05-05] MEDS: Lactobacillus Acidophilus* 1 TAB PO SCH (09:44)
[2019-05-05] MEDS: Carbidopa/Levodop 25/100 MG TAB(*) PO SCH ×2 (09:44→13:07)
[2019-05-05] MEDS: Finasteride TAB* 5 MG PO SCH (09:44)
[2019-05-05] MEDS: Sertraline* 50 MG TAB PO SCH (09:44)
--- NOTE | 2019-05-05 10:30 | PN ---
Progress Note - Progress Note Date of Service: 05/05/19 SOAP: Subjective: POD #5 Left hip ORIF with cephalomedullary nail. No c/o pain. Denies CP/SOB, f/ c. Objective: Vital Signs: Temp Pulse Resp BP Pulse Ox 98.4 F 69 20 98/59 97 05/05/19 08:04 05/05/19 08:04 05/05/19 08:04 05/05/19 08:04 05/05/19 08:04 Gen: Sleepy, but arousable. Alert to person and place. Left hip: Dressing C/D/I. Thigh soft, NT. Calf with swelling but no ttp. +f/e at ankle and MTPs. N/V intact. Laboratory Results - last 24 hr 05/04/19 05/04/19 05/04/19 15:14 15:14 15:14 WBC 8.4 RBC 3.41 L Hgb 9.5 L Hct 29 L MCV 84 MCH 28 MCHC 33 RDW 16 H Plt Count 249 MPV 8.7 Neut % (Auto) 82.4 Lymph % (Auto) 6.7 [place] % (Auto) 5.8 Eos % (Auto) 4.9 Baso % (Auto) 0.2 Absolute Neuts (auto) 6.9 Absolute Lymphs (auto) 0.6 L Absolute Monos (auto) 0.5 Absolute Eos (auto) 0.4 Absolute Basos (auto) 0.0 Absolute Nucleated RBC 0.0 Nucleated RBC % 0.0 Sodium 141 Potassium 4.4 Chloride 107 Carbon Dioxide 26 Anion Gap 8 BUN 29 H Creatinine 0.95 Est GFR ( Amer) 90.3 Est GFR (Non-Af Amer) 74.6 BUN/Creatinine Ratio 30.5 H Glucose 143 H Calcium 7.6 L B-Natriuretic Peptide 119 H Assessment: POD #5 Left hip ORIF with cephalomedullary nail Plan: Insurance denied acute rehab placement Awaiting bed offer at [facility], complicated by medication for metastatic prostate cancer Cont PT WBAT LLE Cont lovenox for DVT ppx
[2019-05-05 11:46] VITALS: BP 111/63
--- NOTE | 2019-05-05 12:13 | PN ---
Subjective Date of Service: 05/05/19 Interval History: afebrile, no acute events bed to [facility] offered. awaiting pre-auth some left leg pain. Family History: Unchanged from Admission Social History: Unchanged from Admission Past Medical History: Unchanged from Admission Objective Active Medications: Acetaminophen (Tylenol Tab*) 650 mg PO Q6H PRN PRN Reason: PAIN - MILD Last Admin: 05/05/19 09:42 Dose: 650 mg Allopurinol (Zyloprim Tab*) 200 mg PO DAILY [facility] Last Admin: 05/05/19 09:42 Dose: 200 mg Apixaban (Eliquis*) 2.5 mg PO BID [facility] Last Admin: 05/05/19 09:42 Dose: 2.5 mg Carbidopa/Levodopa (Sinemet 25/100 Tab(*)) 1 tab PO TID PC [facility] Last Admin: 05/05/19 09:44 Dose: 1 tab Cholecalciferol (Vitamin D Tab*) 1,000 units PO DAILY [facility] Last Admin: 05/05/19 09:42 Dose: 1,000 units Docusate Sodium (Colace Cap*) 100 mg PO BID PRN PRN Reason: CONSTIPATION Last Admin: 05/02/19 10:21 Dose: 100 mg Finasteride (Proscar Tab*) 5 mg PO DAILY [facility] Last Admin: 05/05/19 09:44 Dose: 5 mg Furosemide (Lasix Tab*) 20 mg PO DAILY [facility] Lactobacillus Rhamnosus (Lactobacillus Acidophilus*) 1 tab PO DAILY [facility] Last Admin: 05/05/19 09:44 Dose: 1 tab Magnesium Hydroxide (Milk Of Magnesia Liq*) 30 ml PO BID PRN PRN Reason: CONSTIPATION Last Admin: 05/02/19 10:25 Dose: 30 ml Polyethylene Glycol/Electrolytes (Miralax (17 Gm Dose Mannie)) 17 gm PO DAILY PRN PRN Reason: CONSTIPATION Last Admin: 05/01/19 17:22 Dose: 17 gm Senna (Senokot 8.6 Mg Tab*) 1 tab PO BEDTIME PRN PRN Reason: CONSTIPATION Sertraline HCl (Zoloft*) 50 mg PO DAILY [facility] Last Admin: 05/05/19 09:44 Dose: 50 mg Tramadol HCl (Ultram*) 50 mg PO Q6H PRN PRN Reason: PAIN - MODERATE Vital Signs - 8 hr 05/05/19 05/05/19 08:04 11:45 Temperature 98.4 F 97.8 F Pulse Rate 69 67 Respiratory 20 18 Rate Blood Pressure 98/59 111/63 (mmHg) O2 Sat by Pulse 97 97 Oximetry Oxygen Devices in Use Now: None Appearance: NAD Eyes: No Scleral Icterus Cardiovascular: NL Sounds; No Murmurs; No JVD, RRR Extremities: - - 2+ edema left leg, 1+ right leg up to thigh. Neurological: Alert and Oriented x 3 Nutrition: Taking PO's Result Diagrams: 05/04/19 15:14 05/04/19 15:14 Microbiology and Other Data: Microbiology 04/27/19 18:35 Urine Urine Culture - Final No Growth (<1,000 CFU/mL) Diagnostic Imaging: Order Information: CHEST AP/PORT Accession Number: [id number] CPT: 39092 HISTORY: fall, prostate cancer COMPARISONS: None relevant available at the time of dictation. VIEWS: 1: frontal AP view of the chest at 3:01 PM. The left costophrenic angle is cut off. FINDINGS: LINES AND TUBES: None. CARDIOMEDIASTINAL SILHOUETTE: The cardiomediastinal silhouette is normal for portable technique. PLEURA: The right costophrenic angle is sharp. The left costophrenic angle is cut off. LUNG PARENCHYMA: The lungs are clear. ABDOMEN: The upper abdomen is clear. There is no subphrenic gas. BONES AND SOFT TISSUES: No bone or soft tissue abnormalities are noted. IMPRESSION: LIMITED STUDY. NO ACTIVE CARDIOPULMONARY DISEASE. Order Information: TOE LEFT 5TH Accession Number: [id number] CPT: 70586 HISTORY: Rule out fracture COMPARISONS: None. Left fifth toe: 2 radiographs FINDINGS: A subtle discontinuity of the cortex noted at the level of the base of the proximal phalanx left fifth toe may represent an undisplaced fracture of the sacrum no other fracture is demonstrated IMPRESSION: QUESTIONABLE UNDISPLACED FRACTURE BASE OF THE PROXIMAL PHALANX LEFT FIFTH TOE EKG Data: ECG Report Patient Name ERICA AGUERO Birthdate 1930 Sex M Order Number [id number] Date of ECG 04/27/2019 15:13:25 Interpretation Sinus rhythm.normal P axis, V-rate 60- 99 Atrial premature complex.SV complex w/ short R-R interval Prolonged SC interval.SC >220, V-rate 50- 90 Inferior infarct, old.Q >35mS, II III aVF - ABNORMAL ECG - CHANGES SINCE THE PREVIOUS RECORD OF 12 Lead 02/19/2019 19:00:07: Prolonged SC interval. New Q wave in lead 3. Electronically signed on 04/27/2019 at 23:12 by Vidya Chamorro MD Assess/Plan/Problems-Billing Assessment: 89 year old male with a PMH of metastatic prostate cancer (currently on Xtandi) , parkinsonian symptoms, afib and TIA who was admitted on 04/27/19 s/p fall resulting in left femur fracture. - Patient Problems (1) Status post-operative repair of closed fracture of left hip Status: Acute Code(s): Z98.890 - OTHER SPECIFIED POSTPROCEDURAL STATES; Z87.81 - PERSONAL HISTORY OF (HEALED) TRAUMATIC FRACTURE SNOMED Code(s): 953968051 Comment: Sustained a fracture from a standing height at home. s/[ ORIF with 04/28. - Due to fracture from standing height, it was recommended he be given a one time dose of IV zoledronic acid to prevent further fracture, given 04/29 - appreciate ortho recs - continue PT - d/c to [facility] today after PMRU declined. he is from [place]. (2) Chronic diastolic (congestive) heart failure Status: Acute Code(s): I50.32 - CHRONIC DIASTOLIC (CONGESTIVE) HEART FAILURE SNOMED Code(s): 798690785 Comment: ECHO 04/26 with grade 1 diastolic dysfunction. pEF 55-60%, no significant valvular pathology (mild TVR) Talked to who relates concern about b/l (L>R) lower extremity swelling for about a year but worse over the last few weeks prior to admission. some L>R swelling. add daily weights. BNP moderately elevated. restart lasix 20mg daily if goes into Afib RVR would exacerbate (3) Afib Status: Acute Code(s): I48.91 - UNSPECIFIED ATRIAL FIBRILLATION SNOMED Code( s): 93003332 Comment: Is not on medication for rate control, rate stable, SR per EKG - Apixaban restarted on 04/29 (4) BPH (benign prostatic hyperplasia) Status: Acute Code(s): N40.0 - BENIGN PROSTATIC HYPERPLASIA WITHOUT LOWER URINRY TRACT SYMP SNOMED Code(s): 743621018 Comment: - Continue finesteride. (5) DVT prophylaxis Status: Acute Code(s): Z29.9 - ENCOUNTER FOR PROPHYLACTIC MEASURES, UNSPECIFIED SNOMED Code(s): 191258369 Comment: -Apixiban started 04/29, SCDs (6) Depression Status: Acute Code(s): F32.9 - MAJOR DEPRESSIVE DISORDER, SINGLE EPISODE, UNSPECIFIED SNOMED Code(s): 70473141 Comment: - Continue sertraline. (7) Gout Status: Acute Code(s): M10.9 - GOUT, UNSPECIFIED SNOMED Code(s): 34882303 Comment: -Continue allopurinol. (8) TIA (obstructive sleep apnea) Status: Acute Code(s): G47.33 - OBSTRUCTIVE SLEEP APNEA (ADULT) (PEDIATRIC) SNOMED Code(s): 51587737 Comment: -Does not use a cpap. Suggest O2 supplementation in the overnight as needed. 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 Plan to f/u about this medication on an outpatient basis Status and Disposition: Dispo: medicine inpatient, to [facility] today.
[2019-05-05] MEDS ORDERED: Furosemide TAB* 20 MG PO SCH (13:00)
--- NOTE | 2019-05-05 14:23 | DS ---
DISCHARGE SUMMARY: DATE OF ADMISSION: 04/27/19 DATE OF DISCHARGE: 05/05/19 ADMITTING PROVIDER: Dr. Ulices Chavarria. PRIMARY CARE PROVIDER: Dr. Thelma Kauffman. CONSULTING ORTHOPEDIC DOCTOR: Dr. Villalobos & Dr. Chanel. OUTPATIENT OPHTHALMIC TECHNOLOGIST/ONCOLOGIST: Dr. Calixto. OUTPATIENT UROLOGIST: Dr. Acevedo. OUTPATIENT NEUROLOGIST: Dr. Lemos. ATTENDING PHYSICIAN ON DAY OF DISCHARGE: Bo Maxwell MD. CHIEF COMPLAINT: Pain in left hip after a mechanical fall. PRINCIPAL DIAGNOSES: Left intertrochanteric femur fracture, status post open reduction and internal fixation by Dr. Chanel on 04/29/19. HISTORY OF PRESENT ILLNESS: Nasim Cortes is an 89-year-old male with past medical history of paroxysmal atrial fibrillation (on apixaban); metastatic prostate cancer (on Xtandi); gout; BPH; obstructive sleep apnea; depression; parkinsonism. Please see H&P of Dr. Chavarria for full details, but briefly, he was walking to the bathroom and fell on his left thigh, unsure if he was using his walker or not. His , Dalia, later stated that he has been having increasing swelling in bilateral legs for about a year and worsening the last several weeks. New medications include Xtandi in March. His initial imaging was concerning for intertrochanteric left femur fracture. CT of his spine showed a new C7 lytic lesion. Cervical spine MRI with contrast revealed decrease in multilevel spondylosis resulting in at least mild spinal canal stenosis at C4-C5 and C5-C6, moderate multilevel neural foraminal stenosis. CT head showed no acute intracranial pathology, but diffuse involutional changes. He had an ORIF with Dr. Chanel on 04/29/19, hospital day #3. He has been working with Physical Therapy, recovering well. He still needs additional physical therapy. [facility] was consulted, but ultimately denied transferring there. His additional workup included a transthoracic echocardiogram, which showed preserved ejection fraction with EF of 55% to 60%. There was evidence of mild tricuspid regurgitation and trace aortic valve regurgitation. He had grade 1 diastolic dysfunction. On the day prior to the discharge, the first day with this provider, he was noted to be edematous and BNP was checked, it was slightly elevated at 119. His Lasix had been held on admission as he has had lower blood pressures, but this was recommended to be restarted and continued as tolerated. Dr. Verdugo consulted for Oncology/Hematology and recommended given the risk about of 20% of neutropenia infection with Xtandi that is to be held until further outpatient followup. He is being discharged to [facility] for further rehabilitation. DISCHARGE MEDICATIONS: Include: 1. Allopurinol 200 mg daily. 2. Eliquis 2.5 mg p.o. b.i.d. 3. Sinemet 1 tab p.o. t.i.d. 4. Cholecalciferol 1000 units p.o. daily. 5. Docusate 100 mg p.o. b.i.d. (new). 6. Finasteride 5 mg p.o. daily. 7. Lasix 20 mg p.o. daily. 8. Probiotic 1 tab p.o. daily. 9. MiraLAX 17 g p.o. daily (new). 10. Senna 1 tab p.o. at bedtime p.r.n. (new). 11. Sertraline 50 mg p.o. daily. 12. Tramadol 50 mg p.o. q.6 hours p.r.n. (new). Of note his Xtandi has been held until further outpatient follow-up in the setting of increased risk for infection. CONDITION: Improved. DISPOSITION: [facility]. DIET: Heart healthy. FOLLOWUP: Please follow up with primary care provider, which is listed as Dr. Kauffman within 7 days of discharge from [facility]. He should follow up with Dr. Chanel and also perhaps with Dr. Mosqueda given the new evidence of grade 1 diastolic heart failure with complaint of progressive edema which may have contributed to his fall. TIME SPENT ON DISCHARGE: 35 minutes. [id number]/CPS #: [id number] MTDD
== END 2019-05-05 15:29 | DRG 481 ==
LOC: ED 11:59 → SSU 14:24
PROVIDERS: ADMIT Internal Medicine; ATTEND Internal Medicine
PROC: 0QS736Z Reposition Left Upper Femur with Intramedullary Internal Fixation Device, Percutaneous Approach (ICD-10-PCS; principal; 2019-04-29 12:15)
DX: S72.142A Displaced intertrochanteric fracture of left femur, initial encounter for closed fracture (principal); C79.51 Secondary malignant neoplasm of bone; I50.32 Chronic diastolic (congestive) heart failure; W19.XXXA Unspecified fall, initial encounter; I48.0 Paroxysmal atrial fibrillation; R29.6 Repeated falls; C61 Malignant neoplasm of prostate; G47.33 Obstructive sleep apnea (adult) (pediatric); M10.9 Gout, unspecified; F32.9 Major depressive disorder, single episode, unspecified; G20 Parkinson's disease; F02.80 Dementia in other diseases classified elsewhere, unspecified severity, without behavioral disturbance, psychotic disturbance, mood disturbance, and anxiety; I08.2 Rheumatic disorders of both aortic and tricuspid valves; N40.0 Benign prostatic hyperplasia without lower urinary tract symptoms; Z66 Do not resuscitate; I11.0 Hypertensive heart disease with heart failure; Z88.8 Allergy status to other drugs, medicaments and biological substances; Z79.01 Long term (current) use of anticoagulants; Y92.009 Unspecified place in unspecified non-institutional (private) residence as the place of occurrence of the external cause; Z79.899 Other long term (current) drug therapy
CPT/HCPCS: 36415; 70450; 71045; 72125; 72193; 76000; 80048; 80053; 81003; 81015; 83880; 85014; 85018; 85025; 85048; 85610; 85730; 86850; 86900; 86901; 87086; 93005; 93306; 96374; 99233; 99284; A9270-GY; C1713; C1776; J0690; J1100; J1650; J2270; J2704; J3010; J3489; J3490; Q9967

== ENCOUNTER 2019-09-06 11:26 | Inpatient (IN) ==
[2019-09-06 12:41] LABS: Hematocrit 39 % (42-52); Hemoglobin 12.4 g/dL (14.0-18.0); Mean Corpuscular HGB Conc 32 g/dL (31-36); Mean Corpuscular Hemoglobin 27 pg (27-31); Mean Corpuscular Volume 85 fL (80-94); Mean Platelet Volume 8.9 fL (7.4-10.4); Platelet Count 259 10^3/uL (150-450); Red Blood Count 4.55 10^6 /uL (4.18-5.48); Red Cell Distribution Width 18 % (10-15); White Blood Count 11.2 10^3/uL (3.5-10.8)
[2019-09-06 12:59] LABS: ALT 10 U/L (7-52); AST 76 U/L (13-39); Albumin 2.9 g/dL (3.2-5.2); Albumin/Globulin Ratio 0.9 (1-3); Alkaline Phosphatase 293 U/L (34-104); BUN/Creatinine Ratio 16.7 (8-20); Blood Urea Nitrogen 30 mg/dL (6-24); C Reactive Protein 130.16 mg/L (<8.01); CO2 Carbon Dioxide 24 mmol/L (22-32); Calcium 8.2 mg/dL (8.6-10.3); EGFR African American 43.2 (>60); EGFR Non-African American 35.7 (>60); Globulin 3.3 g/dL (2-4); Glucose 108 mg/dL (70-100); Magnesium 2.5 mg/dL (1.9-2.7); Potassium 4.4 mmol/L (3.5-5.0); Total Protein 6.2 g/dL (6.4-8.9)
[2019-09-06 13:07] LABS: Anion Gap 10 mmol/L (2-11); Chloride 116 mmol/L (101-111); Sodium 150 mmol/L (135-145); Troponin I 0.03 ng/mL (<0.03)
[2019-09-06] MEDS ORDERED: NS 0.9% 1000 ml BAG 1,000 ML IV ONE (13:19)
[2019-09-06] MEDS ORDERED: cefTRIAXone 1 gm/50 mL NS BAG 1 GM/50 ML BAG IVPB ONE (13:19)
[2019-09-06 13:48] LABS: ABS Basophils 0.1 10^3/ul (0-0.2); ABS Lymphocytes 0.7 10^3/ul (1.0-4.8); ABS Monocytes 0.9 10^3/ul (0-0.8); ABS Neutrophils 9.5 10^3/ul (1.5-7.7); Eosinophil % 0.2 %; Nucleated Red Blood Cells % 0.1
[2019-09-06 14:13] LABS: Urine Appearance Cloudy; Urine Bilirubin Negative (Negative); Urine Blood 2+ (Negative); Urine Color Amber; Urine Glucose Negative (Negative); Urine Ketones Negative (Negative); Urine Nitrite Negative (Negative); Urine Protein 1+(30 mg/dL) (Negative); Urine Specific Gravity 1.016 (1.010-1.030); Urine Urobilinogen Positive (Negative)
[2019-09-06 14:15] LABS: Urine Bacteria 1+ (Absent); Urine Red Blood Cell 2+(6-10/hpf) (Absent); Urine White Blood Cell Trace(0-5/hpf) (Absent)
[2019-09-06] MEDS ORDERED: Senna TAB 8.6 mg TAB PO PRN (14:37)
[2019-09-06] MEDS ORDERED: Azithromycin 500 mg/250 ml NS 500 MG/250 ML BAG IVPB ONE (14:38)
[2019-09-06] MEDS ORDERED: Atropine 1% (ORAL/SL) 15 ML BTL SL PRN (14:41)
[2019-09-06] MEDS ORDERED: Piperacillin/Tazobac ADVAN 3.375 GM in NS 0.9% 100 ml BAG 100 ML IVPB ONE (14:54)
[2019-09-06] MEDS ORDERED: Zosyn per Pharmacy NOTE FOLLOW UP SCH (15:00)
[2019-09-06] MEDS ORDERED: Lactated Ringers 1000 ml BAG 1,000 ML IV ONE (15:04)
[2019-09-06] MEDS ORDERED: Azithromycin 500 mg/250 ml NS 500 MG/250 ML BAG IVPB SCH (17:00)
[2019-09-06] MEDS ORDERED: Iodixanol (CONTRAST) 320 MG/ML 100 ML SDV IV ONE (17:17)
[2019-09-06] MEDS ORDERED: ZOSYN 3.375 GM x ONE DOSE over 30 miuntes IV (17:30)
[2019-09-06] MEDS: Morphine ORAL CONCENTRATE 5 MG/0.25 ML ORAL.SYRIN SL PRN (17:34)
[2019-09-06 19:23] LABS: Troponin I 0.04 ng/mL (<0.03)
[2019-09-06 22:57] LABS: Troponin I 0.03 ng/mL (<0.03)
[2019-09-07] MEDS: ZOSYN 3.375 GM Q8H per EXTENDED INFUSION IV SCH ×2 (00:52→08:45)
[2019-09-07] MEDS: Morphine ORAL CONCENTRATE 5 MG/0.25 ML ORAL.SYRIN SL PRN ×3 (00:52→08:53)
[2019-09-07 01:26] LABS: Troponin I 0.03 ng/mL (<0.03)
[2019-09-07 09:08] LABS: Hematocrit 33 % (42-52); Hemoglobin 10.5 g/dL (14.0-18.0); Mean Corpuscular HGB Conc 32 g/dL (31-36); Mean Corpuscular Hemoglobin 28 pg (27-31); Mean Corpuscular Volume 86 fL (80-94); Mean Platelet Volume 8.6 fL (7.4-10.4); Platelet Count 273 10^3/uL (150-450); Red Blood Count 3.79 10^6 /uL (4.18-5.48); Red Cell Distribution Width 18 % (10-15)
[2019-09-07 09:23] LABS: BUN/Creatinine Ratio 17.3 (8-20); C Reactive Protein 144.53 mg/L (<8.01); Calcium 7.4 mg/dL (8.6-10.3); EGFR African American 40.3 (>60); EGFR Non-African American 33.3 (>60); Potassium 4.3 mmol/L (3.5-5.0)
[2019-09-07 09:37] LABS: ABS Basophils 0.1 10^3/ul (0-0.2); ABS Lymphocytes 0.6 10^3/ul (1.0-4.8); ABS Monocytes 0.8 10^3/ul (0-0.8); ABS Neutrophils 8.4 10^3/ul (1.5-7.7); Eosinophil % 0.5 %
[2019-09-07 11:39] VITALS: BP 94/65
[2019-09-08] MEDS: Morphine ORAL CONCENTRATE 5 MG/0.25 ML ORAL.SYRIN SL PRN ×3 (02:25→07:20)
[2019-09-08] MEDS ORDERED: Morphine ORAL CONCENTRATE 5 MG/0.25 ML ORAL.SYRIN SL PRN (08:00)
[2019-09-08] MEDS: Morphine 2 MG/ML SYRINGE IV PRN ×2 (08:17→10:59)
== END 2019-09-08 11:50 | disposition expired | DRG 871 ==
LOC: ED 11:26 → MED 14:06
PROVIDERS: ADMIT Internal Medicine; ATTEND Internal Medicine